=== PATIENT | male | born 1965 | race Caucasian/White ===

== ENCOUNTER 2024-11-18 12:37 | Inpatient (IN) ==
[~2024-11-18 12:37] MED LIST: KETAMINE HCL INJ 50 MG/ML 10 ML VIAL IV ONE; MIDAZOLAM HCL 5 MG/ML 2ML VIAL IV ONE; SUCCINYLCHOLINE CHLORIDE 20 MG/ML 10 ML VIAL IV ONE; fentaNYL citrate PF 100 MCG/2 ML VIAL IV ONE
--- NOTE | 2024-11-18 12:55 | Emergency Department Note ---
Impression & Plan Sepsis, Acute hypoxic respiratory failure, Coronavirus infection, Required emergent intubation, Mucus plugging of bronchi, Aspiration pneumonia ED Provider Note NAME: MEETA LILLY AGE: 59 SEX: M : 1965 ARRIVES VIA: Ambulance INFORMANT: Patient ED PROVIDER(S): Radames Peña MD CHIEF COMPLAINT: SOB, referred. PLAN: Disposition: Admit MEDICAL DECISION MAKING: The patient is a 59-year-old gentleman with a past medical history of schizophrenia, drug-induced dyskinesia, history of ICH/TBI who presents to emergency department via EMS from his halfway facility at [facility] for acute respiratory distress and fevers which began abruptly last night and continued in this morning where he was not able to speak due to his work of breathing and shortness of breath. EMS did arrive and placed the patient on CPAP with subsequent improvement. Review of records that accompany the patient document the patient is agreeable with CPR if needed but he is POLST form indicates limited interventions including no mechanical ventilation. On evaluation the patient is in severe respiratory distress but alert and oriented. He exhibits increased work of breathing with heart rate in the 110s, febrile to 38.1 and tachypneic in the 50s. He exhibits rhonchi of bilateral lung kay with increased work of breathing with retractions and abdominal breathing. EKG demonstrates sinus tachycardia without overt acute ischemia. Chest x-ray demonstrates bilateral airspace opacities with dense left basilar density suspicious for aspiration pneumonia per my preliminary independent interpretation. WBC 9.9K with neutrophilia but no left shift. H/H similar to prior. Platelets within normal limits. Chemistry without metabolic acidosis. Sodium is 150 consistent with patient's clinically dry appearance. Lactic acid 1.2, within normal limits. LFTs unremarkable. High-sensitivity troponin 6.6, within normal limits. BNP is normal. Lipase is normal. Procalcitonin is not elevated. UA without evidence of infection. MRSA swab was positive. Respiratory BioFire was positive for coronavirus OC 43. Patient was treated empirically with IV Zosyn and vancomycin given patient's presentation concerning for sepsis related to aspiration pneumonia. 30 cc/KG of normal saline administered given presentation consistent with sepsis. Patient did show progressive improvement in respiratory status following being placed on BiPAP. CT of the head negative for acute abnormalities. Chronic findings are described. CT of the chest demonstrates left sided mucous plugging with left perihilar and basilar consolidation consistent with pneumonia. CT of the abdomen pelvis negative for acute intra-abdominal process. Case was discussed with Dr. Butcher [facility] hospitalist, who will evaluate the patient for admission. Despite initial improvement on BiPAP the patient, following admission while still in the emergency department, the did have subsequent decline where admitting team did perform follow-up x-ray which demonstrated suspected progression of mucous plugging with left postobstructive atelectasis/collapse. The patient was noted to have increased work of breathing. Hospitalist service did discuss worsening status with the patient and his mother over the phone. They ultimately did agree with decision to proceed with intubation. RSI intubation performed per procedure note with ketamine given concern for poor pulmonary reserve in the setting of his acute respiratory failure. Once cords visualized succinylcholine administered for paralysis. Small amount of emesis did occur. No significant desaturation. Saturation 99% subsequently. OG tube was placed. Follow-up chest x-ray demonstrates ET tube tip 2.2 cm above the connor. The patient was admitted subsequent to the ICU. Further management per admitting team and ICU. Triage Nursing notes reviewed and agree them. Prior/external medical records reviewed Vital Signs: reviewed Differential diagnosis: Reactive airway disease, pneumonia, pneumothorax, COPD, CHF, infections, cardiac ischemia, pulmonary embolism, musculoskeletal, gastrointestinal, as well as other pathologies. ER treatment provided: See below. Diagnostics interpreted by me: ECG: Sinus tachycardia, 110 bpm, no overt ST elevation or depression, QTc 449, QRS 76. Cardiac Monitoring: An order for continuous cardiac monitoring was placed and demonstrated Sinus tachycardia, 110 bpm. Laboratory studies: See below Imaging studies: See below Consultation(s): STEF Crawford hospitalist. Ezra Ruiz, ICU [facility] [employer]INE [employer]EDER. HPI: Per MDM. ROS: See above HPI for pertinent positives & negatives. A total of 10 systems reviewed and were otherwise negative. VITALS:See Below PHYSICAL EXAMINATION: GENERAL: Awake, alert,ill-appearing, in no distress HENT: Normocephalic, atraumatic. Oropharynx with dry mucous membranes and otherwise unremarkable. EYES: Normal conjunctiva. Sclera non-icteric. NECK: Supple. No nuchal rigidity. FROM. No JVD. RESPIRATORY: Rhonchi bilateral lung kay with increased work of breathing with retractions and abdominal breathing. CARDIAC: Tachycardic rate, normal rhythm. Extremities warm and well perfused. Pulses equal. ABDOMEN: Soft, non-distended. No tenderness to palpation. No rebound or guarding. No masses. MUSCULOSKELETAL: Chest examination reveals no tenderness. The back is symmetrical on inspection without obvious abnormality. There is no CVA tenderness to palpation. No joint edema. LOWER EXTREMITIES: Calves are equal size bilaterally and non-tender. No edema. No discoloration. NEURO: Moving all extremities equally with generalized weakness. SKIN: No rash or jaundice noted. ED COURSE: Procedures: Endotracheal Intubation Indication: Acute respiratory failure The patient was on 100% oxygen via CPAP prior to the procedure. Suction, airway equipment, RSI drugs, respiratory equipment, and appropriate personnel were prepared prior to the initiation of the procedure. A time out was taken. Induction was performed with Ketamine. After observing the clinical benefit of the medications, the airway was visualized utilizing a MAC 3, GlideScope. Succinylcholine was administered. A 7.5 size ETT tube was placed atraumatically to 21 cm using standard technique. The cuff inflated without signs of malfunction. There were bilateral breath sounds, positive colormetric change, no gastric sounds, a good capnography waveform, and post procedure pulse oximetry was 99%. Small amount of emesis did occur. No significant desaturation. Chest x-ray demonstrates tip of ET tube 2.2 cm above the connor. Beginnings of left lung reexpansion is appreciated. Critical Care: I have personally spent greater than 65 minutes of critical care time in the direct management of this patient. This includes bedside care, interpretation of diagnostic studies, and testing, discussion with consultants, patient, and family members, and other required patient management activities. This 65 minutes is in excess of all separately billable procedures. Radames Peña MD Past Med/Surg History Problem List (Updated 11/19/24 @ 01:46 by Radames Peña MD) Aspiration pneumonia (Acute) Mucus plugging of bronchi (Acute) Sepsis (Acute) Pneumonia Coronavirus infection (Acute) Acute hypoxic respiratory failure (Acute) Shock circulatory Hypernatremia Viral illness Collapse of left lung Required emergent intubation (Acute) Hypoxic respiratory failure Medical History History of intracranial hemorrhage History of pulmonary embolus (PE) Cognitive impairment History of traumatic brain injury Dyskinesia, drug-induced Acute blood loss anemia HTN (hypertension) Pulmonary embolism Paroxysmal A-fib Intracranial bleed GERD (gastroesophageal reflux disease) Anxiety Depression Schizo affective schizophrenia Bipolar 1 disorder Surgical History History of total replacement of left shoulder joint Social History Smoking Status: Unknown if ever smoked marital status: Single Current Living Situation: Residential other: mother, age 90, lives in [facility]; 2 brothers, 1 sister Feels Safe at Home: Yes Allergies Allergies Allergy/AdvReac Type Severity Reaction Status Date / Time No Known Allergies Allergy Verified 11/18/24 18:57 Home Meds Home Medications Medication Instructions Recorded Confirmed Lactobacillus 1 cap PO BID 11/18/24 11/18/24 Milk of Magnesia 30 ml PO DAILY PRN Constipation 11/18/24 11/18/24 acetaminophen 325 mg tablet 650 mg PO Q12H PRN Pain/fever 11/18/24 11/18/24 acetaminophen 500 mg tablet 500 mg PO Q8H 11/18/24 11/18/24 apixaban 5 mg tablet (Eliquis) 5 mg PO BID 11/18/24 11/18/24 benztropine 1 mg tablet 1 mg PO BID 11/18/24 11/18/24 bisacodyl 10 mg rectal suppository 10 mg WI DAILY PRN Constipation 11/18/24 11/18/24 (Dulcolax (bisacodyl)) ceftazidime 1 gram solution for 1 g IM UD 11/18/24 11/18/24 injection ferrous sulfate 325 mg (65 mg 325 mg PO BID 11/18/24 11/18/24 iron) tablet (FeroSul) furosemide 20 mg tablet 20 mg PO UD 11/18/24 11/18/24 guaifenesin 400 mg tablet (Mucus 400 mg PO .Q12H 11/18/24 11/18/24 Relief) ipratropium 0.5 mg-albuterol 3 mg 3 ml inhalation Q6H 11/18/24 11/18/24 (2.5 mg base)/3 mL nebulization soln lidocaine 4 % topical patch 1 patch topical DAILY 11/18/24 11/18/24 melatonin 3 mg tablet 3 mg PO HS 11/18/24 11/18/24 omeprazole 20 mg capsule,delayed 20 mg PO DAILY 11/18/24 11/18/24 release ondansetron HCl 4 mg tablet 4 mg PO Q6H PRN n/v 11/18/24 11/18/24 oxcarbazepine 150 mg tablet 450 mg PO QPM 11/18/24 11/18/24 paliperidone 6 mg tablet,extended 12 mg PO DAILY 11/18/24 11/18/24 release 24 hr potassium chloride 20 mEq 40 meq PO DAILY 11/18/24 11/18/24 tablet,extended release(part/cryst) risperidone 4 mg tablet 4 mg PO BID 11/18/24 11/18/24 sertraline 100 mg tablet 100 mg PO HS 11/18/24 11/18/24 simethicone 125 mg capsule 125 mg PO DAILY 11/18/24 11/18/24 sodium phosphates 19 gram-7 118 ml WI DAILY PRN Constipation 11/18/24 11/18/24 gram/118 mL enema (Enema) sucralfate 1 gram tablet 1 g PO TID 11/18/24 11/18/24 thiamine mononitrate (vit B1) 100 100 mg PO DAILY 11/18/24 11/18/24 mg tablet Results & Data (ED) Vital Signs Vital Signs - 24 hr 11/18/24 12:44 11/18/24 12:44 11/18/24 12:52 Temperature 38.1 C H Temperature Source Rectal Pulse Rate 115 H 107 H Pulse Rate [Apical] Pulse Rate from SpO2 Sensor Pulse Rhythm [Apical] Pulse Strength [Apical] Respiratory Rate 57 H 30 H Respiratory Effort / Characteristics Labored Spontaneous Labored Retracting Respiratory Depth Retractive Respiratory Pattern Agonal Blood Pressure 133/97 Blood Pressure [Right Arm] Blood Pressure Mean 109 Blood Pressure Mean [Right Arm] Pulse Oximetry 99 99 98 Oxygen Delivery Method BiPAP BiPAP Fraction of Inspired Oxygen 60 Sepsis Recent Fever Within 48 Hours Yes Sepsis New/Unexplained Change in Mental Status N/A Sepsis Action Taken by Nursing Physician Notified 11/18/24 13:00 11/18/24 13:04 11/18/24 13:15 Temperature Temperature Source Pulse Rate 125 H 111 H Pulse Rate [Apical] 108 H Pulse Rate from SpO2 Sensor Pulse Rhythm [Apical] Pulse Strength [Apical] Respiratory Rate 45 H 35 H Respiratory Effort / Characteristics Respiratory Depth Respiratory Pattern Blood Pressure 156/118 H Blood Pressure [Right Arm] Blood Pressure Mean 123 Blood Pressure Mean [Right Arm] Pulse Oximetry 98 97 Oxygen Delivery Method BiPAP BiPAP Fraction of Inspired Oxygen Sepsis Recent Fever Within 48 Hours Sepsis New/Unexplained Change in Mental Status Sepsis Action Taken by Nursing 11/18/24 13:30 11/18/24 13:45 11/18/24 14:00 Temperature Temperature Source Pulse Rate 110 H 112 H Pulse Rate [Apical] 113 H Pulse Rate from SpO2 Sensor Pulse Rhythm [Apical] Pulse Strength [Apical] Respiratory Rate 46 H 38 H 38 H Respiratory Effort / Characteristics Respiratory Depth Respiratory Pattern Blood Pressure 125/107 H 150/103 H Blood Pressure [Right Arm] 155/94 H Blood Pressure Mean 113 111 Blood Pressure Mean [Right Arm] 114 Pulse Oximetry 97 98 97 Oxygen Delivery Method BiPAP BiPAP BiPAP Fraction of Inspired Oxygen Sepsis Recent Fever Within 48 Hours Sepsis New/Unexplained Change in Mental Status Sepsis Action Taken by Nursing 11/18/24 14:15 11/18/24 14:43 11/18/24 14:45 Temperature 36.9 C Temperature Source Axillary Pulse Rate 102 H Pulse Rate [Apical] 97 H Pulse Rate from SpO2 Sensor 102 H Pulse Rhythm [Apical] Pulse Strength [Apical] Respiratory Rate 35 H 48 H Respiratory Effort / Characteristics Respiratory Depth Respiratory Pattern Blood Pressure 136/88 Blood Pressure [Right Arm] 142/103 H Blood Pressure Mean 104 Blood Pressure Mean [Right Arm] 116 Pulse Oximetry 96 97 Oxygen Delivery Method BiPAP BiPAP Fraction of Inspired Oxygen Sepsis Recent Fever Within 48 Hours Sepsis New/Unexplained Change in Mental Status Sepsis Action Taken by Nursing 11/18/24 15:00 11/18/24 15:20 11/18/24 16:00 Temperature Temperature Source Pulse Rate Pulse Rate [Apical] 84 102 H 101 H Pulse Rate from SpO2 Sensor Pulse Rhythm [Apical] Pulse Strength [Apical] Normal Respiratory Rate 42 H 63 H 36 H Respiratory Effort / Characteristics Labored Accessory Muscle Use SOB on Exertion Labored SOB on Exertion Respiratory Depth Shallow Respiratory Pattern Rapid/Shallow Blood Pressure Blood Pressure [Right Arm] 145/95 H 159/95 H 135/83 Blood Pressure Mean Blood Pressure Mean [Right Arm] 111 116 100 Pulse Oximetry 95 98 93 Oxygen Delivery Method BiPAP BiPAP BiPAP Fraction of Inspired Oxygen Sepsis Recent Fever Within 48 Hours Sepsis New/Unexplained Change in Mental Status Sepsis Action Taken by Nursing 11/18/24 16:15 11/18/24 16:30 11/18/24 16:45 Temperature 36.5 C Temperature Source Axillary Pulse Rate Pulse Rate [Apical] 98 H 88 93 H Pulse Rate from SpO2 Sensor Pulse Rhythm [Apical] Pulse Strength [Apical] Normal Respiratory Rate 37 H 45 H 35 H Respiratory Effort / Characteristics Labored SOB on Exertion Labored SOB on Exertion Labored SOB on Exertion Respiratory Depth Respiratory Pattern Rapid/Shallow Rapid/Shallow Blood Pressure Blood Pressure [Right Arm] 151/99 H 171/100 H 138/74 Blood Pressure Mean Blood Pressure Mean [Right Arm] 116 123 95 Pulse Oximetry 93 97 98 Oxygen Delivery Method BiPAP BiPAP BiPAP Fraction of Inspired Oxygen Sepsis Recent Fever Within 48 Hours Sepsis New/Unexplained Change in Mental Status Sepsis Action Taken by Nursing 11/18/24 17:45 11/18/24 18:15 11/18/24 18:22 Temperature 37.3 C 38 C H Temperature Source Bhakta Cath ( Temp Sensing) Bhakta Cath ( Temp Sensing) Pulse Rate 106 H Pulse Rate [Apical] 99 H 106 H Pulse Rate from SpO2 Sensor Pulse Rhythm [Apical] Pulse Strength [Apical] Normal Respiratory Rate 48 H 44 H Respiratory Effort / Characteristics Labored SOB on Exertion Labored SOB on Exertion Respiratory Depth Respiratory Pattern Blood Pressure Blood Pressure [Right Arm] 145/99 H 147/111 H Blood Pressure Mean Blood Pressure Mean [Right Arm] 114 123 Pulse Oximetry 98 92 Oxygen Delivery Method BiPAP BiPAP Fraction of Inspired Oxygen Sepsis Recent Fever Within 48 Hours Sepsis New/Unexplained Change in Mental Status Sepsis Action Taken by Nursing 11/18/24 18:30 11/18/24 19:00 Temperature Temperature Source Pulse Rate Pulse Rate [Apical] 110 H 108 H Pulse Rate from SpO2 Sensor Pulse Rhythm [Apical] Regular Pulse Strength [Apical] Respiratory Rate 51 H 32 H Respiratory Effort / Characteristics Labored SOB on Exertion Respiratory Depth Respiratory Pattern Rapid/Shallow Blood Pressure Blood Pressure [Right Arm] 147/95 H 130/91 Blood Pressure Mean Blood Pressure Mean [Right Arm] 112 104 Pulse Oximetry 90 98 Oxygen Delivery Method BiPAP Fraction of Inspired Oxygen Sepsis Recent Fever Within 48 Hours Sepsis New/Unexplained Change in Mental Status Sepsis Action Taken by Nursing Laboratory Data Attestation: I reviewed the patient's lab results. 11/18/24 12:50 11/18/24 12:50 Lab Results 11/18/24 11/18/24 11/18/24 Range/Units 12:50 12:53 14:38 WBC 9.91 (4.8-10.8) K/ul RBC 4.17 L (4.70-6.10) M/uL Hgb 12.5 L (14.0-18.0) g/dl POC Hgb 12.9 L (14.0-18.0) g/dl Hct 38.6 L (42.0-52.0) % POC Hct 38 L (42-52) % MCV 92.6 (80.0-100.0) fL MCH 30.0 (25.0-34.0) pg MCHC 32.4 (32.0-36.0) g/dL RDW Std Deviation 44.8 (36.4-46.3) fL RDW Coeff of Kalani 13.2 (11.5-14.5) % Plt Count 196 (130-400) K/uL MPV 9.6 (9.4-12.4) fL Immature Gran % (Auto) 0.5 % Neut % (Auto) 82.0 % Lymph % (Auto) 9.4 % Maries % (Auto) 7.8 % Eos % (Auto) 0.1 % Baso % (Auto) 0.2 % Neut # (Auto) 8.13 H (1.40-6.50) K/uL Lymph # (Auto) 0.93 L (1.20-3.40) K/uL Maries # (Auto) 0.77 H (0.11-0.59) K/uL Eos # (Auto) 0.01 (0.00-0.50) K/uL Baso # (Auto) 0.02 (0.00-0.20) K/uL Immature Gran # (Auto) 0.05 (0.01-0.20) K/uL PT 11.3 (9.0-12.0) Seconds INR 1.0 (0.9-1.1) VBG pH 7.42 H (7.36-7.41) VBG pCO2 50 (38-50) mmHg VBG pO2 47 mmHg VBG HCO3 32 mmol/L VBG O2 Saturation 81.9 % VBG Base Excess 6.6 mEq/L POC Sodium 150 H (135-144) mmol/L Sodium 150 H (136-145) mmol/L POC Potassium 4.3 (3.3-5.0) mmol/L Potassium 4.4 (3.5-5.1) mmol/L POC Chloride 111 (101-112) mmol/L Chloride 111 H (98-107) mmol/L Carbon Dioxide 31 (21-32) mmol/L POC Total CO2 28 (24-31) mmol/L Anion Gap 8 (3-11) POC Anion Gap 17.0 (16-25) mmol/L POC BUN 38 H (7-18) mg/dl BUN 38 H (6-23) mg/dl Creatinine 0.98 (0.6-1.4) mg/dl POC Creatinine 1.2 (0.6-1.3) mg/dl Est Cr Clr Drug Dosing Not Reportable eGFR 88.83 BUN/Creatinine Ratio 38.8 H (10-20) Glucose 103 H (70-99(Fasting)) mg/dl POC Glucose (other) 105 H (70-99) mg/dl Lactate 1.2 (0.4-2.0) mmol/L Calcium 9.0 (8.6-10.3) mg/dl POC Ioniz Calcium Thomas 1.13 (1.12-1.32) mmol/l Magnesium 2.0 (1.7-2.4) mg/dl Total Bilirubin 0.4 (0.2-1.0) mg/dl Direct Bilirubin 0.1 (0-0.2) mg/dl AST 18 (13-39) U/L ALT 24 (7-52) U/L Alkaline Phosphatase 59 (34-104) U/L Troponin I High Sens 6.6 (0-20) pg/ml B-Natriuretic Peptide 79 (0-100) pg/ml Total Protein 7.2 (6.0-8.3) gm/dl Albumin 4.1 (3.4-5.0) gm/dl Lipase 22 (11-82) U/L Procalcitonin 0.33 (0-0.5) ng/ml Urine Color Urine Appearance (Clear) Urine pH (4.5-7.5) Ur Specific [place] (1.000-1.030) Urine Protein (Negative) Urine Glucose (UA) (Negative) Urine Ketones (Negative) Urine Blood (Negative) Urine Nitrite (Negative) Urine Bilirubin (Negative) Urine Urobilinogen (Negative) Ur Leukocyte Esterase (Negative) Urine WBC (Auto) (0-5) /hpf Urine RBC (Auto) (0-2) /hpf U Hyaline Cast (Auto) (0-2) /lpf U Epithel Cells (Auto) (0-2) /hpf Urine Bacteria (Auto) (None Seen) Nasal Screen MRSA (PCR) Positive A (Negative) Adenovirus (PCR) Not Detected (NotDetected) B. pertussis DNA (PCR) Not Detected (NotDetected) B.parapertussis DNA PCR Not Detected (NotDetected) C. pneumoniae DNA (PCR) Not Detected (NotDetected) Coronavirus OC43 (PCR) DETECTED A (NotDetected) Coronavirus HKU1 (PCR) Not Detected (NotDetected) Coronavirus 229E (PCR) Not Detected (NotDetected) SARS-CoV-2 (PCR) Not Detected (NotDetected) Coronavirus NL63 (PCR) Not Detected (NotDetected) Human Metapneumovir PCR Not Detected (NotDetected) Influenza Type A (PCR) Not Detected (NotDetected) Influenza Type B (PCR) Not Detected (NotDetected) M. pneumoniae (PCR) Not Detected (NotDetected) Parainfluenza 1 (PCR) Not Detected (NotDetected) Parainfluenza 2 (PCR) Not Detected (NotDetected) Parainfluenza 3 (PCR) Not Detected (NotDetected) Parainfluenza 4 (PCR) Not Detected (NotDetected) RSV (PCR) Not Detected (NotDetected) Entero/Rhino (PCR) Not Detected (NotDetected) 11/18/24 11/18/24 Range/Units 14:56 18:16 WBC (4.8-10.8) K/ul RBC (4.70-6.10) M/uL Hgb (14.0-18.0) g/dl POC Hgb (14.0-18.0) g/dl Hct (42.0-52.0) % POC Hct (42-52) % MCV (80.0-100.0) fL MCH (25.0-34.0) pg MCHC (32.0-36.0) g/dL RDW Std Deviation (36.4-46.3) fL RDW Coeff of Kalani (11.5-14.5) % Plt Count (130-400) K/uL MPV (9.4-12.4) fL Immature Gran % (Auto) % Neut % (Auto) % Lymph % (Auto) % Maries % (Auto) % Eos % (Auto) % Baso % (Auto) % Neut # (Auto) (1.40-6.50) K/uL Lymph # (Auto) (1.20-3.40) K/uL Maries # (Auto) (0.11-0.59) K/uL Eos # (Auto) (0.00-0.50) K/uL Baso # (Auto) (0.00-0.20) K/uL Immature Gran # (Auto) (0.01-0.20) K/uL PT (9.0-12.0) Seconds INR (0.9-1.1) VBG pH 7.37 (7.36-7.41) VBG pCO2 46 (38-50) mmHg VBG pO2 47 mmHg VBG HCO3 27 mmol/L VBG O2 Saturation 78.9 % VBG Base Excess 0.8 mEq/L POC Sodium (135-144) mmol/L Sodium (136-145) mmol/L POC Potassium (3.3-5.0) mmol/L Potassium (3.5-5.1) mmol/L POC Chloride (101-112) mmol/L Chloride (98-107) mmol/L Carbon Dioxide (21-32) mmol/L POC Total CO2 (24-31) mmol/L Anion Gap (3-11) POC Anion Gap (16-25) mmol/L POC BUN (7-18) mg/dl BUN (6-23) mg/dl Creatinine (0.6-1.4) mg/dl POC Creatinine (0.6-1.3) mg/dl Est Cr Clr Drug Dosing eGFR BUN/Creatinine Ratio (10-20) Glucose (70-99(Fasting)) mg/dl POC Glucose (other) (70-99) mg/dl Lactate (0.4-2.0) mmol/L Calcium (8.6-10.3) mg/dl POC Ioniz Calcium Thomas (1.12-1.32) mmol/l Magnesium (1.7-2.4) mg/dl Total Bilirubin (0.2-1.0) mg/dl Direct Bilirubin (0-0.2) mg/dl AST (13-39) U/L ALT (7-52) U/L Alkaline Phosphatase (34-104) U/L Troponin I High Sens (0-20) pg/ml B-Natriuretic Peptide (0-100) pg/ml Total Protein (6.0-8.3) gm/dl Albumin (3.4-5.0) gm/dl Lipase (11-82) U/L Procalcitonin (0-0.5) ng/ml Urine Color Yellow Urine Appearance Clear (Clear) Urine pH 5.5 (4.5-7.5) Ur Specific [place] > 1.045 H (1.000-1.030) Urine Protein 1+ H (Negative) Urine Glucose (UA) Negative (Negative) Urine Ketones Trace H (Negative) Urine Blood Trace H (Negative) Urine Nitrite Negative (Negative) Urine Bilirubin Negative (Negative) Urine Urobilinogen Negative (Negative) Ur Leukocyte Esterase Negative (Negative) Urine WBC (Auto) 0-5 (0-5) /hpf Urine RBC (Auto) 3-5 H (0-2) /hpf U Hyaline Cast (Auto) 0-2 (0-2) /lpf U Epithel Cells (Auto) 0-2 (0-2) /hpf Urine Bacteria (Auto) None Seen (None Seen) Nasal Screen MRSA (PCR) (Negative) Adenovirus (PCR) (NotDetected) B. pertussis DNA (PCR) (NotDetected) B.parapertussis DNA PCR (NotDetected) C. pneumoniae DNA (PCR) (NotDetected) Coronavirus OC43 (PCR) (NotDetected) Coronavirus HKU1 (PCR) (NotDetected) Coronavirus 229E (PCR) (NotDetected) SARS-CoV-2 (PCR) (NotDetected) Coronavirus NL63 (PCR) (NotDetected) Human Metapneumovir PCR (NotDetected) Influenza Type A (PCR) (NotDetected) Influenza Type B (PCR) (NotDetected) M. pneumoniae (PCR) (NotDetected) Parainfluenza 1 (PCR) (NotDetected) Parainfluenza 2 (PCR) (NotDetected) Parainfluenza 3 (PCR) (NotDetected) Parainfluenza 4 (PCR) (NotDetected) RSV (PCR) (NotDetected) Entero/Rhino (PCR) (NotDetected) Administered Medications Benztropine Mesylate (Benztropine Mesylate 1 Mg Tab) 1 mg PO BID [facility] Stop: 12/18/24 20:59 Last Admin: 11/18/24 21:13 Dose: 1 mg Documented By: TMG Heparin Sodium (Porcine) (Heparin Sod 5,000 Unit/0.5 Ml Vial) 5,000 units SQ Q8 [facility] Stop: 12/18/24 21: Last Admin: 11/18/24 23:26 Dose: 5,000 units Documented By: TMG Propofol (Diprivan) 1,000 mg in 100 mls @ 11.592 mls/hr IV .[id number] [facility]SAU; Protocol Stop: 11/21/24 19:29 Last Titration: 11/18/24 23:32 Dose: 30 mcg/kg/min, 11.6 mls/hr Documented By: Titration: 11/18/24 23:00 Dose: 25 mcg/kg/min, 9.7 mls/hr Documented By: Admin: 11/18/24 21:04 Dose: 20 mcg/kg/min, 7.7 mls/hr Documented By: TMG Co-signed By: [facility] Fentanyl Citrate (Fentanyl Citrate) 2,500 mcg in 250 mls @ 5 mls/hr IV .Q50H [facility]; Protocol Stop: 12/02/24 19:29 Last Titration: 11/18/24 23:33 Dose: 50 mcg/hr, 5 mls/hr Documented By: TMG Co-signed By: [facility] Admin: 11/18/24 20:30 Dose: 25 mcg/hr, 2.5 mls/hr Documented By: TMG Co-signed By: [facility] Norepinephrine Bitartrate (Levophed/D5w) 4 mg in 250 mls @ 21.735 mls/hr IV .[id number] [facility]; Protocol Stop: 12/18/24 19:44 Last Titration: 11/18/24 23:33 Dose: 0.09 mcg/kg/min, 21.7 mls/hr Documented By: TMG Co-signed By: [facility] Titration: 11/18/24 23:00 Dose: 0.07 mcg/kg/min, 16.9 mls/hr Documented By: TMG Co-signed By: [facility] Admin: 11/18/24 19:48 Dose: 0.05 mcg/kg/min, 12.1 mls/hr Documented By: ML[facility] Co-signed By: [facility] Famotidine (Pepcid 20mg Iv Push) 20 mg in 5 mls @ 2.5 mls/min IV Q12H [facility] Stop: 12/18/24 20:59 Last Admin: 11/18/24 21:04 Dose: 2.5 mls/min Documented By: [facility] Piperacillin Sod/Tazobactam Sod (Zosyn) 4.5 gm in 100 mls @ 25 mls/hr IV Q8H ESAU; Protocol Stop: 11/25/24 18:59 Last Admin: 11/18/24 21:05 Dose: 25 mls/hr Documented By: BENTON Dextrose (D5w) 1,000 mls @ 80 mls/hr IV .[id number] ESAU Stop: 11/19/24 20:44 Last Admin: 11/18/24 21:02 Dose: 80 mls/hr Documented By: BENTON Miscellaneous (Icu Protocol For Hyperglycemia) 1 each N/A ACHS ESAU Stop: 11/20/24 20:59 Last Admin: 11/18/24 21:11 Dose: Not Given Documented By: BENTON Oxcarbazepine (Oxcarbazepine 150 Mg Tablet) 450 mg PO QPM ESAU Stop: 12/18/24 20:59 Last Admin: 11/18/24 21:04 Dose: 450 mg Documented By: BENTON Sertraline HCl (Sertraline Hcl 100 Mg Tablet) 100 mg PO HS ESAU Stop: 12/18/24 20:59 Last Admin: 11/18/24 21:13 Dose: 100 mg Documented By: BENTON Discontinued Medications Albuterol (Albut/Ipratrop 3mg/0.5mg Neb 3 Ml Vial) 3 ml NEB NOW STA; Protocol Stop: 11/18/24 12:47 Last Admin: 11/18/24 13:09 Dose: 3 ml Documented By: RUI Albuterol (Albut/Ipratrop 3mg/0.5mg Neb 3 Ml Vial) 3 ml NEB NOW STA; Protocol Stop: 11/18/24 17:42 Last Admin: 11/18/24 17:55 Dose: 3 ml Documented By: RUI Albuterol (Albuterol 0.083% Nebu Soln 3 Ml Vial) Confirm Administered Dose 2.5 mg .ROUTE .STK-MED ONE Stop: 11/18/24 20:04 Last Admin: 11/18/24 20:09 Dose: 2.5 mg Documented By: PARUL Benztropine Mesylate (Benztropine Mesylate 1 Mg/Ml 2 Ml Amp) 2 mg IV NOW STA Stop: 11/18/24 12:54 Last Admin: 11/18/24 13:22 Dose: 2 mg Documented By: ODALYS Fentanyl Citrate (Fentanyl Citrate Pf 100 Mcg/2 Ml Vial) 50 mcg IV NOW STA Stop: 11/18/24 19:32 Last Admin: 11/18/24 19:35 Dose: 50 mcg Documented By: JOHNATHAN Acetaminophen (Ofirmev) 1,000 mg in 100 mls @ 400 mls/hr IV NOW STA Stop: 11/18/24 13:00 Last Infusion: 11/18/24 13:20 Dose: Infused Documented By: Admin: 11/18/24 12:59 Dose: 400 mls/hr Documented By: ODALYS Piperacillin Sod/Tazobactam Sod (Zosyn) 4.5 gm in 100 mls @ 200 mls/hr IV NOW ONE; Protocol Stop: 11/18/24 13:15 Last Infusion: 11/18/24 13:57 Dose: Infused Documented By: Admin: 11/18/24 13:17 Dose: 200 mls/hr Documented By: ODALYS Sodium Chloride (Nss) 1,000 mls @ 999 mls/hr IV .Q1H1M ESAU Stop: 11/18/24 15:00 Last Infusion: 11/18/24 15:45 Dose: Infused Documented By: Admin: 11/18/24 14:41 Dose: 999 mls/hr Documented By: Infusion: 11/18/24 14:39 Dose: Infused Documented By: Admin: 11/18/24 13:22 Dose: 999 mls/hr Documented By: ODALYS Vancomycin HCl 1,500 mg/ (Sodium Chloride) 530 mls @ 200 mls/hr IV NOW ONE Stop: 11/18/24 18:19 Last Infusion: 11/18/24 23:07 Dose: Infused Documented By: Admin: 11/18/24 16:21 Dose: 200 mls/hr Documented By: MARY Lactated Ringer's (Lr) 500 mls @ 999 mls/hr IV .Q31M ONE Stop: 11/18/24 20:43 Last Infusion: 11/18/24 23:06 Dose: Infused Documented By: Admin: 11/18/24 20:30 Dose: 999 mls/hr Documented By: BENTON Lactated Ringer's (Lr) 500 mls @ 999 mls/hr IV .Q31M ONE Stop: 11/18/24 21:33 Last Infusion: 11/18/24 23:06 Dose: Infused Documented By: Admin: 11/18/24 21:10 Dose: 999 mls/hr Documented By: BENTON Ioversol (Optiray 320 100ml) 90 ml IV ONCE ONE Stop: 11/18/24 14:35 Last Admin: 11/18/24 14:34 Dose: 90 ml Documented By: ÁNGELA Ketamine HCl (Ketamine Hcl 10mg/Ml Syr) Confirm Administered Dose 100 mg .ROUTE .STK-MED ONE Stop: 11/18/24 18:53 Last Admin: 11/18/24 22:53 Dose: Not Given Documented By: BENTON Ketorolac Tromethamine (Ketorolac Tromethamine 15 Mg/Ml Vial) 15 mg IV NOW ONE Stop: 11/18/24 18:06 Last Admin: 11/18/24 18:11 Dose: 15 mg Documented By: MARY Lidocaine HCl (Lidocaine 2% Jelly 5 Ml Tube) Confirm Administered Dose 5 ml EXT .STK-MED ONE Stop: 11/18/24 19:08 Last Admin: 11/18/24 20:11 Dose: Not Given Documented By: JOHNATHAN Lidocaine HCl (Lidocaine 2% 20 Mg/Ml 5 Ml Syr) Confirm Administered Dose 100 mg IV .STK-MED ONE Stop: 11/18/24 19:09 Last Admin: 11/18/24 20:11 Dose: Not Given Documented By: JOHNATHAN Lidocaine HCl (Lidocaine 4% Inh Soln 4 Ml Btl) Confirm Administered Dose 4 ml .ROUTE .STK-MED ONE Stop: 11/18/24 19:12 Last Admin: 11/18/24 19:14 Dose: 4 ml Documented By: ML Lidocaine HCl (Lidocaine 4% Inh Soln 4 Ml Btl) 4 ml INH NOW ONE Stop: 11/18/24 19:43 Last Admin: 11/18/24 22:05 Dose: Not Given Documented By: CAM Midazolam HCl (Midazolam Hcl 1 Mg/Ml 2ml Vial) 2 mg IV NOW STA Stop: 11/18/24 19:23 Last Admin: 11/18/24 20:10 Dose: Not Given Documented By: [facility] Miscellaneous (Rapid Sequence Induction Bag) Confirm Administered Dose 1 each N/A .STK-MED ONE Stop: 11/18/24 19:00 Last Admin: 11/18/24 22:54 Dose: Not Given Documented By: TMG Miscellaneous Information (Patient's Allergy Info Needs Entered) 1 each N/A Q30M STA Stop: 11/18/24 18:10 Last Admin: 11/18/24 19:33 Dose: Not Given Documented By: GGG Morphine Sulfate (Morphine Sulfate 2 Mg/Ml Carp) 2 mg IV NOW STA Stop: 11/18/24 18:03 Last Admin: 11/18/24 18:12 Dose: 2 mg Documented By: GGG Sodium Chloride (Sodium Chlor 7% 4 Ml Neb) 4 ml NEB ONE ONE Stop: 11/18/24 17:45 Last Admin: 11/18/24 17:55 Dose: 4 ml Documented By: EVELYNW Imaging Data Radiologist's Impression: Chest X-Ray 11/18/24 12:44 XR chest 1V portable CLINICAL HISTORY: Sepsis. COMPARISON STUDY: Chest radiograph July 01, 2024. FINDINGS: Left shoulder arthroplasty is incidentally noted. Low lung volumes are unchanged. There is no pneumothorax. Multiple left costophrenic angle is unchanged. Dense left basilar opacity persists. Cardiomediastinal silhouette is stable. IMPRESSION: 1. Dense left basilar opacity, similar to prior exam. Atelectasis or pneumonia are within the differential. However, given persistence, a chest CT is recommended to exclude an underlying lesion. 2. Low lung volumes, unchanged. ACT 112: Negative or not required by law. Electronically signed by: Damian Logan M.D. 11/18/2024 1:15 PM Abdomen/Pelvis CT 11/18/24 14:08 CT SCAN OF THE ABDOMEN AND PELVIS WITH IV CONTRAST CLINICAL HISTORY: Sepsis. COMPARISON STUDY: None. TECHNIQUE: Following the IV administration of 90 cc of Optiray 320, CT scan of the abdomen and pelvis is performed from the lung bases to the proximal femora. Images are reviewed in the axial, sagittal, and coronal planes. IV contrast was administered without complication. A dose lowering technique was utilized adhering to the principles of ALARA. CT DOSE: 3527.12 mGy.cm FINDINGS: Lung bases: Please note that the chest CT will be reported separately. Left lower lobe volume loss with extensive airspace opacity is present. There are trace bilateral pleural effusions. Subpleural right lower lobe opacity is also present. The heart is mildly enlarged. Liver: The liver morphology is normal and there are no hepatic lesions. There is no biliary ductal dilatation status post cholecystectomy. The hepatic veins and portal veins are patent. Spleen: Normal in size. Subcentimeter splenic hypodense lesion is likely benign. Pancreas: There are no pancreatic lesions. No pancreatic ductal dilatation is present. Adrenal glands: Unremarkable. Kidneys: There is a small right renal cyst. There is no hydronephrosis. The kidneys enhance symmetrically. 3 mm left lower pole renal calculus is present. There are no ureteral calculi. Abdominal vasculature: The caliber of the abdominal aorta is normal. Major vasculature is patent. Bowel: The caliber and wall thickness of small and large bowel are normal. There are postoperative findings within the right colon. The appendix is likely surgically absent. Peritoneum: There is no intraperitoneal free air. There is trace fluid within the pelvis. Lymphadenopathy: None. Skeletal structures: No lytic or blastic lesions are seen. IMPRESSION: 1. No bowel obstruction. No bowel wall thickening. 2. Trace fluid within the pelvis. 3. 3 mm left renal calculus. No ureteral calculi or hydronephrosis. 4. Bilateral lower lobe airspace opacities, greater on the left with secretions and bronchial wall thickening within the lower lobes. The findings could represent atelectasis, pneumonia or aspiration pneumonitis. Trace bilateral pleural effusions. ACT 112: Negative or not required by law. Electronically signed by: Damian Logan M.D. 11/18/2024 3:[address] 11/18/24 14:[address] WITH CONTRAST HISTORY: Acute respiratory failure with possible pneumonia acute resp fail, sepsis, pna TECHNIQUE: Multiaxial CT images of the chest were performed following the IV administration of 90 cc of Optiray. A dose lowering technique was utilized adhering to the principles of ALARA. COMPARISON: CT abdomen and pelvis of same day, chest radiograph 11/18/2024 FINDINGS: Unremarkable thyroid. No pathologically enlarged lymph nodes. Moderate cardiomegaly. Mild coronary artery calcifications. No pericardial effusion. Unremarkable thoracic aorta. Dilation of the main pulmonary artery likely represents pulmonary arterial hypertension. Trace right and small left pleural effusions. No pneumothorax. Respiratory motion artifact limits the study. Mild subsegmental right basilar atelectasis. Left perihilar and left basilar consolidation noted with air bronchograms and prominent mucous plugging. Additionally, there is associated left lung volume loss. Cholecystectomy. No acute upper abdominal abnormality. Midthoracic dextroscoliosis. Left shoulder. Likely chronic sternal and mild thoracolumbar compression deformities. IMPRESSION: 1. Prominent left-sided mucous plugging with left perihilar/left basilar consolidation likely representing an admixture of atelectasis with pneumonia. Follow up with pulmonology recommended. 2. Trace right and small left pleural effusions . 3. Cardiomegaly without pulmonary edema. ACT 112: Negative or not required by law. Electronically signed by: Adriel Vargas M.D. 11/18/2024 3:[address] 11/18/24 14:08 CT SCAN OF THE BRAIN WITHOUT IV CONTRAST CLINICAL HISTORY: Altered mental status. COMPARISON STUDY: None. TECHNIQUE: Unenhanced axial CT scan of the brain was performed from the vertex to the skull base. A dose lowering technique was utilized adhering to the principles of ALARA. FINDINGS: This exam is moderately compromised by motion artifact. No acute intracranial hemorrhage, midline shift or mass effect is present. There is moderate dilatation of the lateral and third ventricles. Basal cisterns are patent. There are no extra-axial collections. 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 There are no findings to suggest acute dural sinus stenosis or acute territorial infarct. The right maxillary sinus is opacified. There are secretions within the sphenoid sinuses. There is mild ethmoid sinus mucosal thickening. No calvarial fractures are identified. IMPRESSION: 1. No acute intracranial findings. Mild motion artifact. 2. Moderate dilatation of the lateral and third ventricles, likely related to atrophy. Normal pressure hydrocephalus is considered less likely. 3. 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 4. Opacified right maxillary sinus. Secretions within the sphenoid sinuses. ACT 112: Negative or not required by law. Electronically signed by: Damian Logan M.D. 11/18/2024 2:54 PM Chest X-Ray 11/18/24 12:44 XR chest 1V portable CLINICAL HISTORY: Sepsis. COMPARISON STUDY: Chest radiograph July 01, 2024. FINDINGS: Left shoulder arthroplasty is incidentally noted. Low lung volumes are unchanged. There is no pneumothorax. Multiple left costophrenic angle is unchanged. Dense left basilar opacity persists. Cardiomediastinal silhouette is stable. IMPRESSION: 1. Dense left basilar opacity, similar to prior exam. Atelectasis or pneumonia are within the differential. However, given persistence, a chest CT is recommended to exclude an underlying lesion. 2. Low lung volumes, unchanged. ACT 112: Negative or not required by law. Electronically signed by: Damian Logan M.D. 11/18/2024 1:15 PM Abdomen/Pelvis CT 11/18/24 14:08 CT SCAN OF THE ABDOMEN AND PELVIS WITH IV CONTRAST CLINICAL HISTORY: Sepsis. COMPARISON STUDY: None. TECHNIQUE: Following the IV administration of 90 cc of Optiray 320, CT scan of the abdomen and pelvis is performed from the lung bases to the proximal femora. Images are reviewed in the axial, sagittal, and coronal planes. IV contrast was administered without complication. A dose lowering technique was utilized adhering to the principles of ALARA. CT DOSE: 3527.12 mGy.cm FINDINGS: Lung bases: Please note that the chest CT will be reported separately. Left lower lobe volume loss with extensive airspace opacity is present. There are trace bilateral pleural effusions. Subpleural right lower lobe opacity is also present. The heart is mildly enlarged. Liver: The liver morphology is normal and there are no hepatic lesions. There is no biliary ductal dilatation status post cholecystectomy. The hepatic veins and portal veins are patent. Spleen: Normal in size. Subcentimeter splenic hypodense lesion is likely benign. Pancreas: There are no pancreatic lesions. No pancreatic ductal dilatation is present. Adrenal glands: Unremarkable. Kidneys: There is a small right renal cyst. There is no hydronephrosis. The kidneys enhance symmetrically. 3 mm left lower pole renal calculus is present. There are no ureteral calculi. Abdominal vasculature: The caliber of the abdominal aorta is normal. Major vasculature is patent. Bowel: The caliber and wall thickness of small and large bowel are normal. There are postoperative findings within the right colon. The appendix is likely surgically absent. Peritoneum: There is no intraperitoneal free air. There is trace fluid within the pelvis. Lymphadenopathy: None. Skeletal structures: No lytic or blastic lesions are seen. IMPRESSION: 1. No bowel obstruction. No bowel wall thickening. 2. Trace fluid within the pelvis. 3. 3 mm left renal calculus. No ureteral calculi or hydronephrosis. 4. Bilateral lower lobe airspace opacities, greater on the left with secretions and bronchial wall thickening within the lower lobes. The findings could represent atelectasis, pneumonia or aspiration pneumonitis. Trace bilateral pleural effusions. ACT 112: Negative or not required by law. Electronically signed by: Damian Logan M.D. 11/18/2024 3:[address] 11/18/24 14:[address] WITH CONTRAST HISTORY: Acute respiratory failure with possible pneumonia acute resp fail, sepsis, pna TECHNIQUE: Multiaxial CT images of the chest were performed following the IV administration of 90 cc of Optiray. A dose lowering technique was utilized adhering to the principles of ALARA. COMPARISON: CT abdomen and pelvis of same day, chest radiograph 11/18/2024 FINDINGS: Unremarkable thyroid. No pathologically enlarged lymph nodes. Moderate cardiomegaly. Mild coronary artery calcifications. No pericardial effusion. Unremarkable thoracic aorta. Dilation of the main pulmonary artery likely represents pulmonary arterial hypertension. Trace right and small left pleural effusions. No pneumothorax. Respiratory motion artifact limits the study. Mild subsegmental right basilar atelectasis. Left perihilar and left basilar consolidation noted with air bronchograms and prominent mucous plugging. Additionally, there is associated left lung volume loss. Cholecystectomy. No acute upper abdominal abnormality. Midthoracic dextroscoliosis. Left shoulder. Likely chronic sternal and mild thoracolumbar compression deformities. IMPRESSION: 1. Prominent left-sided mucous plugging with left perihilar/left basilar consolidation likely representing an admixture of atelectasis with pneumonia. Follow up with pulmonology recommended. 2. Trace right and small left pleural effusions . 3. Cardiomegaly without pulmonary edema. ACT 112: Negative or not required by law. Electronically signed by: Adriel Vargas M.D. 11/18/2024 3:[address] 11/18/24 14:08 CT SCAN OF THE BRAIN WITHOUT IV CONTRAST CLINICAL HISTORY: Altered mental status. COMPARISON STUDY: None. TECHNIQUE: Unenhanced axial CT scan of the brain was performed from the vertex to the skull base. A dose lowering technique was utilized adhering to the principles of ALARA. FINDINGS: This exam is moderately compromised by motion artifact. No acute intracranial hemorrhage, midline shift or mass effect is present. There is moderate dilatation of the lateral and third ventricles. Basal cisterns are patent. There are no extra-axial collections. 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 There are no findings to suggest acute dural sinus stenosis or acute territorial infarct. The right maxillary sinus is opacified. There are secretions within the sphenoid sinuses. There is mild ethmoid sinus mucosal thickening. No calvarial fractures are identified. IMPRESSION: 1. No acute intracranial findings. Mild motion artifact. 2. Moderate dilatation of the lateral and third ventricles, likely related to atrophy. Normal pressure hydrocephalus is considered less likely. 3. 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 4. Opacified right maxillary sinus. Secretions within the sphenoid sinuses. ACT 112: Negative or not required by law. Electronically signed by: Damian Logan M.D. 11/18/2024 2:54 PM Discharge Plan Visit Data Chief Complaint: Respiratory Distress ED Provider: Radames Peña Discharge Problem: Sepsis, Acute hypoxic respiratory failure, Coronavirus infection, Required emergent intubation, Mucus plugging of bronchi, Aspiration pneumonia Patient Disposition: Admitted As Inpatient Discharge Instructions Interventions: ED Discharge Assessment Last Done: 11/18/24 19:41 Discharge Problem: Sepsis Qualifiers: Sepsis type: sepsis due to unspecified organism Sepsis acute organ dysfunction status: with acute organ dysfunction Severe sepsis acute organ dysfunction type: acute respiratory failure Acute respiratory failure type: with hypoxia Severe sepsis shock status: unspecified Qualified Code(s): A41.9 - Sepsis, unspecified organism Aspiration pneumonia Qualifiers: Aspiration pneumonia type: unspecified Laterality: bilateral Lung location: l ower lobe of lung Qualified Code(s): J69.0 - Pneumonitis due to inhalation of food and vomit
[2024-11-18] MEDS: ACETAMINOPHEN 1,000 MG/100 ML VIAL IV STA (12:59)
[2024-11-18 13:08] LABS: Basophils # (auto) 0.02 K/uL (0.00-0.20); Basophils % (auto) 0.2 %; Eosinophils # (auto) 0.01 K/uL (0.00-0.50); Eosinophils % (auto) 0.1 %; Hematocrit (blood only) 38.6 % (42.0-52.0); Hemoglobin 12.5 g/dl (14.0-18.0); Immature Granulocytes # (auto) 0.05 K/uL (0.01-0.20); Immature Granulocytes % (auto) 0.5 %; Lymphocytes # (auto) 0.93 K/uL (1.20-3.40); Lymphocytes % (auto) 9.4 %; Mean Corpuscular Hgb Conc 32.4 g/dL (32.0-36.0); Mean Corpuscular Volume 92.6 fL (80.0-100.0); Mean Platelet Volume 9.6 fL (9.4-12.4); Monocytes # (auto) 0.77 K/uL (0.11-0.59); Monocytes % (auto) 7.8 %; Neutrophils # (auto) 8.13 K/uL (1.40-6.50); Platelet Count 196 K/uL (130-400); RDW Coefficient of Variation 13.2 % (11.5-14.5); RDW Standard Deviation 44.8 fL (36.4-46.3); Red Blood Count 4.17 M/uL (4.70-6.10); White Blood Count 9.91 K/ul (4.8-10.8)
[2024-11-18] MEDS: ALBUT/IPRATROP 3MG/0.5MG NEB 3 ML VIAL NEB STA ×2 (13:09→17:55)
[2024-11-18 13:15] LABS: Base Excess VBG 6.6 mEq/L; HCO3 VBG 32 mmol/L; Oxygen Saturation VBG 81.9 %; PCO2 VBG 50 mmHg (38-50); PO2 VBG 47 mmHg; pH VBG 7.42 (7.36-7.41)
[2024-11-18 13:17] LABS: iSTAT Creatinine 1.2 mg/dl (0.6-1.3); iSTAT Hemoglobin 12.9 g/dl (14.0-18.0); iSTAT Ionized Calcium 1.13 mmol/l (1.12-1.32); iSTAT Potassium 4.3 mmol/L (3.3-5.0)
[2024-11-18] MEDS: PIPERACILLIN/TAZOBACTAM 4.5 GM/100 ML BAG IV ONE (13:17)
--- NOTE | 2024-11-18 13:17 | XRay Report ---
XR chest 1V portable CLINICAL HISTORY: Sepsis. COMPARISON STUDY: Chest radiograph July 01, 2024. FINDINGS: Left shoulder arthroplasty is incidentally noted. Low lung volumes are unchanged. There is no pneumothorax. Multiple left costophrenic angle is unchanged. Dense left basilar opacity persists. Cardiomediastinal silhouette is stable. IMPRESSION: 1. Dense left basilar opacity, similar to prior exam. Atelectasis or pneumonia are within the differe ntial. However, given persistence, a chest CT is recommended to exclude an underlying lesion. 2. Low lung volumes, unchanged. ACT 112: Negative or not required by law. Electronically signed by: Damian Logan M.D. 11/18/2024 1:15 PM
[2024-11-18] MEDS: BENZTROPINE MESYLATE 1 MG/ML 2 ML AMP IV STA (13:22)
[2024-11-18] MEDS: SODIUM CHLORIDE 0.9% 1,000 ML IV SCH (13:22)
[2024-11-18 13:32] LABS: Alanine Aminotransferase 24 U/L (7-52); Albumin Level 4.1 gm/dl (3.4-5.0); Alkaline Phosphatase 59 U/L (34-104); Anion Gap 8 (3-11); Aspartate Aminotransferase 18 U/L (13-39); BUN Creatinine Ratio 38.8 (10-20); Bilirubin Direct 0.1 mg/dl (0-0.2); Bilirubin,Total 0.4 mg/dl (0.2-1.0); Blood Urea Nitrogen 38 mg/dl (6-23); Carbon Dioxide 31 mmol/L (21-32); Chloride 111 mmol/L (98-107); Glucose 103 mg/dl (70-99(Fasting)); Lipase 22 U/L (11-82); Potassium 4.4 mmol/L (3.5-5.1); Sodium 150 mmol/L (136-145); Total Protein 7.2 gm/dl (6.0-8.3)
[2024-11-18 13:36] LABS: Troponin I High Sensitivity 6.6 pg/ml (0-20)
[2024-11-18 13:41] LABS: Prothrombin Time 11.3 Seconds (9.0-12.0)
[2024-11-18 14:18] LABS: Adenovirus PCR Not Detected (NotDetected); Bordetella parapertussis PCR Not Detected (NotDetected); Bordetella pertussis PCR Not Detected (NotDetected); Chlamydia pneumoniae PCR Not Detected (NotDetected); Coronavirus 229E PCR Not Detected (NotDetected); Coronavirus CoV-2 (COVID19)PCR Not Detected (NotDetected); Coronavirus HKU1 PCR Not Detected (NotDetected); Coronavirus NL63 PCR Not Detected (NotDetected); Coronavirus OC43PCR DETECTED (NotDetected); Human Metapneumovirus PCR Not Detected (NotDetected); Influenza A PCR Not Detected (NotDetected); Influenza B PCR Not Detected (NotDetected); Mycoplasma pneumoniae PCR Not Detected (NotDetected); Parainfluenza Virus 1 PCR Not Detected (NotDetected); Parainfluenza Virus 2 PCR Not Detected (NotDetected); Parainfluenza Virus 3 PCR Not Detected (NotDetected); Parainfluenza Virus 4 PCR Not Detected (NotDetected); Respiratory Syncytial VirusPCR Not Detected (NotDetected); Rhinovirus/Enterovirus PCR Not Detected (NotDetected)
[2024-11-18] MEDS: OPTIRAY 320 100ml IV ONE (14:34)
--- NOTE | 2024-11-18 14:55 | CT Scan Report ---
CT SCAN OF THE BRAIN WITHOUT IV CONTRAST CLINICAL HISTORY: Altered mental status. COMPARISON STUDY: None. TECHNIQUE: Unenhanced axial CT scan of the brain was performed from the vertex to the skull base. A dose lowering technique was utilized adhering to the principles of ALARA. FINDINGS: This exam is moderately compromised by motion artifact. No acute intracranial hemorrhage, m idline shift or mass effect is present. There is moderate dilatation of the lateral and third ventric les. Basal cisterns are patent. There are no extra-axial collections. 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 There are no findings to suggest acute dural sin us stenosis or acute territorial infarct. The right maxillary sinus is opacified. There are secretion s within the sphenoid sinuses. There is mild ethmoid sinus mucosal thickening. No calvarial fractures are identified. IMPRESSION: 1. No acute intracranial findings. Mild motion artifact. 2. Moderate dilatation of the lateral and third ventricles, likely related to atrophy. Normal pressur e hydrocephalus is considered less likely. 3. 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 4. Opacified right maxillary sinus. Secretions within the sphenoid sinuses. ACT 112: Negative or not required by law. Electronically signed by: Damian Logan M.D. 11/18/2024 2:54 PM
--- NOTE | 2024-11-18 15:03 | CT Scan Report ---
CHEST CT WITH CONTRAST HISTORY: Acute respiratory failure with possible pneumonia acute resp fail, sepsis, pna TECHNIQUE: Multiaxial CT images of the chest were performed following the IV administration of 90 cc of Optiray. A dose lowering technique was utilized adhering to the principles of ALARA. COMPARISON: CT abdomen and pelvis of same day, chest radiograph 11/18/2024 FINDINGS: Unremarkable thyroid. No pathologically enlarged lymph nodes. Moderate cardiomegaly. Mild c oronary artery calcifications. No pericardial effusion. Unremarkable thoracic aorta. Dilation of the main pulmonary artery likely represents pulmonary arterial hypertension. Trace right and small left pleural effusions. No pneumothorax. Respiratory motion artifact limits the study. Mild subsegmental right basilar atelectasis. Left perihilar and left basilar consolidation no wei with air bronchograms and prominent mucous plugging. Additionally, there is associated left lung volume loss. Cholecystectomy. No acute upper abdominal abnormality. Midthoracic dextroscoliosis. Left shoulder. Li alba chronic sternal and mild thoracolumbar compression deformities. IMPRESSION: 1. Prominent left-sided mucous plugging with left perihilar/left basilar consolidation likely represe nting an admixture of atelectasis with pneumonia. Follow up with pulmonology recommended. 2. Trace right and small left pleural effusions . 3. Cardiomegaly without pulmonary edema. ACT 112: Negative or not required by law. Electronically signed by: Adriel Vargas M.D. 11/18/2024 3:00 PM
--- NOTE | 2024-11-18 15:04 | CT Scan Report ---
CT SCAN OF THE ABDOMEN AND PELVIS WITH IV CONTRAST CLINICAL HISTORY: Sepsis. COMPARISON STUDY: None. TECHNIQUE: Following the IV administration of 90 cc of Optiray 320, CT scan of the abdomen and pelvi s is performed from the lung bases to the proximal femora. Images are reviewed in the axial, sagittal , and coronal planes. IV contrast was administered without complication. A dose lowering technique wa s utilized adhering to the principles of ALARA. CT DOSE: 3527.12 mGy.cm FINDINGS: Lung bases: Please note that the chest CT will be reported separately. Left lower lobe volume loss wi th extensive airspace opacity is present. There are trace bilateral pleural effusions. Subpleural rig ht lower lobe opacity is also present. The heart is mildly enlarged. Liver: The liver morphology is normal and there are no hepatic lesions. There is no biliary ductal d ilatation status post cholecystectomy. The hepatic veins and portal veins are patent. Spleen: Normal in size. Subcentimeter splenic hypodense lesion is likely benign. Pancreas: There are no pancreatic lesions. No pancreatic ductal dilatation is present. Adrenal glands: Unremarkable. Kidneys: There is a small right renal cyst. There is no hydronephrosis. The kidneys enhance symmetric ally. 3 mm left lower pole renal calculus is present. There are no ureteral calculi. Abdominal vasculature: The caliber of the abdominal aorta is normal. Major vasculature is patent. Bowel: The caliber and wall thickness of small and large bowel are normal. There are postoperative fi ndings within the right colon. The appendix is likely surgically absent. Peritoneum: There is no intraperitoneal free air. There is trace fluid within the pelvis. Lymphadenopathy: None. Skeletal structures: No lytic or blastic lesions are seen. IMPRESSION: 1. No bowel obstruction. No bowel wall thickening. 2. Trace fluid within the pelvis. 3. 3 mm left renal calculus. No ureteral calculi or hydronephrosis. 4. Bilateral lower lobe airspace opacities, greater on the left with secretions and bronchial wall th ickening within the lower lobes. The findings could represent atelectasis, pneumonia or aspiration pn eumonitis. Trace bilateral pleural effusions. ACT 112: Negative or not required by law. Electronically signed by: Damian Logan M.D. 11/18/2024 3:03 PM
[2024-11-18 15:12] LABS: Appearance Urine Clear (Clear); Bacteria Urine Automated None Seen (None Seen); Bilirubin Urine Negative (Negative); Blood Urine Trace (Negative); Cast Urine Automated 0-2 /lpf (0-2); Color Urine Yellow; Epithelial Cell Urine Auto 0-2 /hpf (0-2); Glucose Urine UA Negative (Negative); Ketones Urine Trace (Negative); Leukocyte Esterase Urine Negative (Negative); Nitrite Urine Negative (Negative); Protein Urine 1+ (Negative); Specific Gravity Urine > 1.045 (1.000-1.030); Urobilinogen Urine Negative (Negative); WBC Urine Automated 0-5 /hpf (0-5); pH Urine 5.5 (4.5-7.5)
[2024-11-18] MEDS ORDERED: VANCOMYCIN CONSULT ACTIVE PRN (15:41)
[2024-11-18] MEDS: VANCOMYCIN HCL 1,500 MG in SODIUM CHLORIDE 0.9% 500 ML IV ONE (16:21)
--- NOTE | 2024-11-18 17:26 | History & Physical Report ---
Date of Service November 18, 2024 Assessment & Plan (1) Acute hypoxic respiratory failure: (2) Sepsis: (3) Collapse of left lung: (4) Coronavirus infection: (5) Pneumonia: (6) Hypernatremia: (7) Cognitive impairment: (8) History of traumatic brain injury: (9) Dyskinesia, drug-induced: (10) HTN (hypertension): (11) Paroxysmal A-fib: (12) Schizo affective schizophrenia: (13) Bipolar 1 disorder: (14) GERD (gastroesophageal reflux disease): (15) History of pulmonary embolus (PE): (16) History of intracranial hemorrhage: Plan 59yo male with history of schizoaffective disorder, at least 2 head injuries with resulting ICH (one of which required surgery per his mother??), recurrent pneumonia (4-5 episodes last 2 years per his mother), PAF, prior PEs, bipolar disorder, major depression, anemia, HTN, GERD, drug induced dyskinesia, and cognitive impairment (which started after one of his traumatic head injuries) presents from [facility] with worsening respiratory distress that began sometime last PM. At time of admission required BiPAP right away for his severe respiratory distress. Tested + for non-COVID coronavirus infection on [employer] panel. Tested + for MRSA on [employer] swab. Despite supportive care, bronchodilators, saline neb, IV antibiotics, etc he continued to worsen while in the ER. Initially had significant LLL pneumonia/collapse on imaging, and later in his ER course he developed JOVANY collapse as well. Decision made to intubate after confirming with his mother that advanced directives indicate he would want full code status. #acute hypoxic respiratory failure - -2nd to LLL pneumonia, mucous plugging, and collapse of LLL; ultimately had collapse of JOVANY in the ER as well -s/p intubation/mech ventilation & admission to the ICU -f/u CXR post-intubation shows improved airation of the left lung; emergency bronchoscopy can likely be deferred tonight -cont zosyn/vancomycin (latter due to MRSA + status) -bronchodilators, pulm toilet, etc. -appreciate exhaust emissions inspector assistance -appreciate ER attending assistance #pneumonia - -initially CT chest showed LLL pneumonia -likely with JOVANY involvement and some on the right as well -cont zosyn/vancomycin #non-COVID coronavirus infection - -supportive care -droplet precautions -defer on systemic steroids #left lung collapse likely due to mucous plugging - -improved s/p intubation in the ER -bronchoscopy had been considered, but can likely defer tonight since the left lung is now better airated -he will ultimately need speech evaluation later in this stay to assess his swallow function -with mucous plugging heavy concern for aspiration -prior to intubation he had a very weak cough -scoliosis and generalized debilitation also contributing to poor lung function and recurrent pneumonia #hypernatremia - -would provide hypotonic fluid with serial BMPs #probable sepsis 2nd to pneumonia - -2nd to pneumonia & coronavirus infection -follow blood cx's -antibiotics as above #schizoaffective disorder - -cont sertraline to prevent SSRI withdrawal -hold risperidone, paliperidone tonight but resume as soon as possible -cont oxcarbazepine - I am assuming this is used for mood stabilization rather than seizure disorder as his limited amount of SNF records does not indicate h/o seizures -cont benztropine BID #drug induced tardive dyskinesia - -cont benztropine BID #h/o PAF on Eliquis - -as patient may need bronchoscopy hold Eliquis for now -he is not on AV yonas agents chronically -telemetry #h/o previous PEs - -dates of such unknown -as he may need bronchoscopy hold Eliquis for now, but if not needed then resume mahogany #GERD - -IV Pepcid q12h #HTN - -his record indicates such, but he is not on anti-hypertensives at the [facility] #cognitive impairment - -per his mother his memory loss started particularly after one of his brain injuries from a fall -I was able to contact one of the medical directors from the [facility] and they reported that earlier in October he was oriented to person & year but not the month or place -per his mother he is ambulatory? would need to verify that with the SNF (I attempted to call the SNF multiple times this evening to no avail) #DVT proph - -hold Eliquis in case urgent bronch is needed but resume mahogany otherwise -if Eliquis is on hold longer term then would bridge with lovenox Appreciate ICU assistance Pt's mother Edwige Tate ([phone]) - who is 90yo - was updated following his intubation She plans to come tomorrow to [place] from her home in [place] if one of her other children can bring her History of Present Illness Chief Complaint: respiratory distress Primary Care Provider: [facility] 59yo male with history of schizoaffective disorder, at least 2 head injuries with resulting ICH (one of which required surgery per his mother?), recurrent pneumonia, PAF, prior PEs, bipolar disorder, major depression, anemia, HTN, GERD, drug induced dyskinesia, and cognitive impairment (which started after one of his traumatic head injuries) presents from [facility] with worsening respiratory distress that began sometime last evening. Very little information is available from the SNF but by report his dyspnea & increased work of breathing were so severe today that he was not able to talk. EMS was summoned to [facility] and he was immediately placed on CPAP. Upon arrival to [facility] the patient was severely tachypneic despite the CPAP and switched to BIPAP. Hour-long duoneb was provided. Chest imaging showed LLL pneumonia/collapse along with copious mucous plugging. He was given zosyn & IV vancomycin. By report his work of breathing improved modestly. During my ER assessment the patient had severe increased work of breathing with tachypnea (RR 30s/40s), retractions, and accessory muscle use. He was unable to provide any meaningful history. Attempts for him to write on paper were unsuccessful. He was able to tell me that he was in pain but could not localize it. To that point it was presumed the patient was a DNI as his POLST form from the [facility] stated the following - in the event of cardiac arrest he would want full resuscitation; however, if not in cardiac arrest, the POLST indicated he would only want limited interventions (which would exclude intubation/mech ventilation). We ultimately were able to locate a husbandry person for Mr Tate. That person was Edwige Tate, his mother. Phone # - [phone]. I called Ms Tate, discussed what was going on medically, and explained to her that he was in severe respiratory distress due to LLL pneumonia, mucous plugging, etc. Given his distress we voiced concerns that without intubation/mech ventilation he may not survive. We discussed code status - she reported she had advanced directives from her son and that these indicated that he would want intubation/mech ventilation (along with CPR) "if there was a chance at survival." I went back to Mr Tate's room. On paper I wrote out "do you want to be placed on the ventilator?" and placed a large Yes and large No at the bottom. I verbally explained what a ventilator is and why we would be doing such. He pointed to the "yes" at the bottom. I asked one more time if he would want intubation and he shook his head yes this time. I informed Dr Peña, ED attending, of Mrs Tate's wishes as well as the patient's wishes. Preparations were made for intubation and Dr Peña successfully performed such. Dr Gray and Johnathon Benites were both informed of the above. Mr Benites was in the pt's room during the intubation. During chart review I noted that the patient had been receiving IM ceftaz at the [facility], presumably due to the pneumonia. Allergies Allergy/AdvReac Type Severity Reaction Status Date / Time No Known Allergies Allergy Verified 11/18/24 18:57 Home Medications Medication Instructions Recorded Confirmed Type Lactobacillus 1 cap PO BID 11/18/24 11/18/24 History Milk of Magnesia 30 ml PO DAILY PRN Constipation 11/18/24 11/18/24 History acetaminophen 325 mg tablet 650 mg PO Q12H PRN Pain/fever 11/18/24 11/18/24 History acetaminophen 500 mg tablet 500 mg PO Q8H 11/18/24 11/18/24 History apixaban 5 mg tablet (Eliquis) 5 mg PO BID 11/18/24 11/18/24 History benztropine 1 mg tablet 1 mg PO BID 11/18/24 11/18/24 History bisacodyl 10 mg rectal suppository 10 mg OH DAILY PRN Constipation 11/18/24 11/18/24 History (Dulcolax (bisacodyl)) ceftazidime 1 gram solution for 1 g IM UD 11/18/24 11/18/24 History injection ferrous sulfate 325 mg (65 mg 325 mg PO BID 11/18/24 11/18/24 History iron) tablet (FeroSul) furosemide 20 mg tablet 20 mg PO UD 11/18/24 11/18/24 History guaifenesin 400 mg tablet (Mucus 400 mg PO .Q12H 11/18/24 11/18/24 History Relief) ipratropium 0.5 mg-albuterol 3 mg 3 ml inhalation Q6H 11/18/24 11/18/24 History (2.5 mg base)/3 mL nebulization soln lidocaine 4 % topical patch 1 patch topical DAILY 11/18/24 11/18/24 History melatonin 3 mg tablet 3 mg PO HS 11/18/24 11/18/24 History omeprazole 20 mg capsule,delayed 20 mg PO DAILY 11/18/24 11/18/24 History release ondansetron HCl 4 mg tablet 4 mg PO Q6H PRN n/v 11/18/24 11/18/24 History oxcarbazepine 150 mg tablet 450 mg PO QPM 11/18/24 11/18/24 History paliperidone 6 mg tablet,extended 12 mg PO DAILY 11/18/24 11/18/24 History release 24 hr potassium chloride 20 mEq 40 meq PO DAILY 11/18/24 11/18/24 History tablet,extended release(part/cryst) risperidone 4 mg tablet 4 mg PO BID 11/18/24 11/18/24 History sertraline 100 mg tablet 100 mg PO HS 11/18/24 11/18/24 History simethicone 125 mg capsule 125 mg PO DAILY 11/18/24 11/18/24 History sodium phosphates 19 gram-7 118 ml OH DAILY PRN Constipation 11/18/24 11/18/24 History gram/118 mL enema (Enema) sucralfate 1 gram tablet 1 g PO TID 11/18/24 11/18/24 History thiamine mononitrate (vit B1) 100 100 mg PO DAILY 11/18/24 11/18/24 History mg tablet Past Med/Surg History Problem List (Updated 11/18/24 @ 21:48 by Devon Butcher MD) Sepsis Pneumonia Coronavirus infection Acute hypoxic respiratory failure Shock circulatory Hypernatremia Viral illness Collapse of left lung Required emergent intubation Hypoxic respiratory failure Medical History (Updated 11/18/24 @ 21:48 by Devon Butcher MD) History of intracranial hemorrhage History of pulmonary embolus (PE) Cognitive impairment History of traumatic brain injury Dyskinesia, drug-induced Acute blood loss anemia HTN (hypertension) Pulmonary embolism Paroxysmal A-fib Intracranial bleed GERD (gastroesophageal reflux disease) Anxiety Depression Schizo affective schizophrenia Bipolar 1 disorder Surgical History (Updated 11/18/24 @ 21:32 by Devon Butcher MD) History of total replacement of left shoulder joint Social History (Updated 11/18/24 @ 21:33 by Devon Butcher MD) Smoking Status: Never smoker Hx Alcohol Use: No marital status: Single Current Living Situation: Assisted other: mother, age 90, lives in [facility]; 2 brothers, 1 sister Feels Safe at Home: Yes Review of Systems Review of Systems: Other (unable to obtain due to severe resp distress, BIPAP in place) Physical Exam Physical Exam: gen - very thin, malnourished appearing, looks older than stated age; severe respiratory distress with accessory muscle use, retractions & tachypnea; very difficult to verbally communicate with him eyes - PERRL face - tardive dyskinetic movements noted of lower face neck - no lymph nodes, no goiter, no JVD heart - tachy, regular rhythm, s1 s2, no murmur lungs - decreased BS mildly R base, but right lung clear; left lung - severely decreased BS, only the apex has air movement; upper airway noise (girgling breath sounds) present; severe distress as above abd - soft, NT, BS+, no HSM ext - slightly cool to touch, no edema, pulses b/l feet 1-2+ neuro - moves all 4 extremities but preferentially the right arm, DTRs 2+ b/l skin - no rash; scar present on forehead musculo - severe scoliosis; patient leans to his left psych - unable to assess mental status completely but does follow commands Results & Data Results & Data Vital Signs (Past 12 Hours) Vital Signs Temp Pulse Pulse Resp BP BP Pulse Ox 11/18/24 16:45 93 H 35 H 138/74 98 11/18/24 16:30 36.5 C 88 45 H 171/100 H 97 11/18/24 16:15 98 H 37 H 151/99 H 93 11/18/24 16:00 101 H 36 H 135/83 93 11/18/24 15:20 102 H 63 H 159/95 H 98 11/18/24 15:00 84 42 H 145/95 H 95 11/18/24 14:45 97 H 48 H 142/103 H 97 11/18/24 14:43 36.9 C 11/18/24 14:15 102 H 35 H 136/88 96 11/18/24 14:00 112 H 38 H 150/103 H 97 11/18/24 13:45 110 H 38 H 125/107 H 98 11/18/24 13:30 113 H 46 H 155/94 H 97 11/18/24 13:15 108 H 35 H 97 11/18/24 13:04 111 H 11/18/24 13:00 125 H 45 H 156/118 H 98 11/18/24 12:52 107 H 30 H 98 11/18/24 12:44 99 11/18/24 12:44 38.1 C H 115 H 57 H 133/97 99 O2 Del Method FiO2 11/18/24 16:45 BiPAP 11/18/24 16:30 BiPAP 11/18/24 16:15 BiPAP 11/18/24 16:00 BiPAP 11/18/24 15:20 BiPAP 11/18/24 15:00 BiPAP 11/18/24 14:45 BiPAP 11/18/24 14:43 11/18/24 14:15 BiPAP 11/18/24 14:00 BiPAP 11/18/24 13:45 BiPAP 11/18/24 13:30 BiPAP 11/18/24 13:15 BiPAP 11/18/24 13:04 11/18/24 13:00 BiPAP 11/18/24 12:52 60 11/18/24 12:44 BiPAP 11/18/24 12:44 BiPAP Laboratory Results Laboratory Results - last 24 hr 11/18/24 11/18/24 11/18/24 12:50 12:53 14:38 WBC 9.91 RBC 4.17 L Hgb 12.5 L POC Hgb 12.9 L Hct 38.6 L POC Hct 38 L MCV 92.6 MCH 30.0 MCHC 32.4 RDW Std Deviation 44.8 RDW Coeff of Kalani 13.2 Plt Count 196 MPV 9.6 Immature Gran % (Auto) 0.5 Neut % (Auto) 82.0 Lymph % (Auto) 9.4 Thomas % (Auto) 7.8 Eos % (Auto) 0.1 Baso % (Auto) 0.2 Neut # (Auto) 8.13 H Lymph # (Auto) 0.93 L Thomas # (Auto) 0.77 H Eos # (Auto) 0.01 Baso # (Auto) 0.02 Immature Gran # (Auto) 0.05 PT 11.3 INR 1.0 VBG pH 7.42 H VBG pCO2 50 VBG pO2 47 VBG HCO3 32 VBG O2 Saturation 81.9 VBG Base Excess 6.6 POC Sodium 150 H Sodium 150 H POC Potassium 4.3 Potassium 4.4 POC Chloride 111 Chloride 111 H Carbon Dioxide 31 POC Total CO2 28 Anion Gap 8 POC Anion Gap 17.0 POC BUN 38 H BUN 38 H Creatinine 0.98 POC Creatinine 1.2 Est Cr Clr Drug Dosing Not Reportable eGFR 88.83 BUN/Creatinine Ratio 38.8 H Glucose 103 H POC Glucose POC Glucose (other) 105 H Lactate 1.2 Calcium 9.0 POC Ioniz Calcium Thomas 1.13 Magnesium 2.0 Total Bilirubin 0.4 Direct Bilirubin 0.1 AST 18 ALT 24 Alkaline Phosphatase 59 Troponin I High Sens 6.6 B-Natriuretic Peptide 79 Total Protein 7.2 Albumin 4.1 Lipase 22 Procalcitonin 0.33 Random Cortisol Urine Color Urine Appearance Urine pH Ur Specific Shafter Urine Protein Urine Glucose (UA) Urine Ketones Urine Blood Urine Nitrite Urine Bilirubin Urine Urobilinogen Ur Leukocyte Esterase Urine WBC (Auto) Urine RBC (Auto) U Hyaline Cast (Auto) U Epithel Cells (Auto) Urine Bacteria (Auto) Nasal Screen MRSA (PCR) Positive A Adenovirus (PCR) Not Detected B. pertussis DNA (PCR) Not Detected B.parapertussis DNA PCR Not Detected C. pneumoniae DNA (PCR) Not Detected Coronavirus OC43 (PCR) DETECTED A Coronavirus HKU1 (PCR) Not Detected Coronavirus 229E (PCR) Not Detected SARS-CoV-2 (PCR) Not Detected Coronavirus NL63 (PCR) Not Detected Human Metapneumovir PCR Not Detected Influenza Type A (PCR) Not Detected Influenza Type B (PCR) Not Detected M. pneumoniae (PCR) Not Detected Parainfluenza 1 (PCR) Not Detected Parainfluenza 2 (PCR) Not Detected Parainfluenza 3 (PCR) Not Detected Parainfluenza 4 (PCR) Not Detected RSV (PCR) Not Detected Entero/Rhino (PCR) Not Detected 11/18/24 11/18/24 11/18/24 14:56 18:16 21:11 WBC RBC Hgb POC Hgb Hct POC Hct MCV MCH MCHC RDW Std Deviation RDW Coeff of Kalani Plt Count MPV Immature Gran % (Auto) Neut % (Auto) Lymph % (Auto) Thomas % (Auto) Eos % (Auto) Baso % (Auto) Neut # (Auto) Lymph # (Auto) Thomas # (Auto) Eos # (Auto) Baso # (Auto) Immature Gran # (Auto) PT INR VBG pH 7.37 VBG pCO2 46 VBG pO2 47 VBG HCO3 27 VBG O2 Saturation 78.9 VBG Base Excess 0.8 POC Sodium Sodium POC Potassium Potassium POC Chloride Chloride Carbon Dioxide POC Total CO2 Anion Gap POC Anion Gap POC BUN BUN Creatinine POC Creatinine Est Cr Clr Drug Dosing eGFR BUN/Creatinine Ratio Glucose POC Glucose 121 H POC Glucose (other) Lactate Calcium POC Ioniz Calcium Thomas Magnesium Total Bilirubin Direct Bilirubin AST ALT Alkaline Phosphatase Troponin I High Sens B-Natriuretic Peptide Total Protein Albumin Lipase Procalcitonin Random Cortisol Urine Color Yellow Urine Appearance Clear Urine pH 5.5 Ur Specific Shafter > 1.045 H Urine Protein 1+ H Urine Glucose (UA) Negative Urine Ketones Trace H Urine Blood Trace H Urine Nitrite Negative Urine Bilirubin Negative Urine Urobilinogen Negative Ur Leukocyte Esterase Negative Urine WBC (Auto) 0-5 Urine RBC (Auto) 3-5 H U Hyaline Cast (Auto) 0-2 U Epithel Cells (Auto) 0-2 Urine Bacteria (Auto) None Seen Nasal Screen MRSA (PCR) Adenovirus (PCR) B. pertussis DNA (PCR) B.parapertussis DNA PCR C. pneumoniae DNA (PCR) Coronavirus OC43 (PCR) Coronavirus HKU1 (PCR) Coronavirus 229E (PCR) SARS-CoV-2 (PCR) Coronavirus NL63 (PCR) Human Metapneumovir PCR Influenza Type A (PCR) Influenza Type B (PCR) M. pneumoniae (PCR) Parainfluenza 1 (PCR) Parainfluenza 2 (PCR) Parainfluenza 3 (PCR) Parainfluenza 4 (PCR) RSV (PCR) Entero/Rhino (PCR) 11/18/24 11/18/24 21:25 Unknown WBC RBC Hgb POC Hgb Hct POC Hct MCV MCH MCHC RDW Std Deviation RDW Coeff of Kalani Plt Count MPV Immature Gran % (Auto) Neut % (Auto) Lymph % (Auto) Thomas % (Auto) Eos % (Auto) Baso % (Auto) Neut # (Auto) Lymph # (Auto) Thomas # (Auto) Eos # (Auto) Baso # (Auto) Immature Gran # (Auto) PT INR VBG pH Pending VBG pCO2 Pending VBG pO2 Pending VBG HCO3 Pending VBG O2 Saturation Pending VBG Base Excess Pending POC Sodium Sodium POC Potassium Potassium POC Chloride Chloride Carbon Dioxide POC Total CO2 Anion Gap POC Anion Gap POC BUN BUN Creatinine POC Creatinine Est Cr Clr Drug Dosing eGFR BUN/Creatinine Ratio Glucose POC Glucose POC Glucose (other) Lactate Calcium POC Ioniz Calcium Thomas Magnesium Total Bilirubin Direct Bilirubin AST ALT Alkaline Phosphatase Troponin I High Sens B-Natriuretic Peptide Total Protein Albumin Lipase Procalcitonin Random Cortisol Pending Urine Color Yellow Urine Appearance Clear Urine pH 6.0 Ur Specific Shafter > 1.045 H Urine Protein Negative Urine Glucose (UA) Negative Urine Ketones Negative Urine Blood Trace H Urine Nitrite Negative Urine Bilirubin Negative Urine Urobilinogen Negative Ur Leukocyte Esterase Negative Urine WBC (Auto) 0-5 Urine RBC (Auto) 3-5 H U Hyaline Cast (Auto) 0-2 U Epithel Cells (Auto) 0-2 Urine Bacteria (Auto) None Seen Nasal Screen MRSA (PCR) Adenovirus (PCR) B. pertussis DNA (PCR) B.parapertussis DNA PCR C. pneumoniae DNA (PCR) Coronavirus OC43 (PCR) Coronavirus HKU1 (PCR) Coronavirus 229E (PCR) SARS-CoV-2 (PCR) Coronavirus NL63 (PCR) Human Metapneumovir PCR Influenza Type A (PCR) Influenza Type B (PCR) M. pneumoniae (PCR) Parainfluenza 1 (PCR) Parainfluenza 2 (PCR) Parainfluenza 3 (PCR) Parainfluenza 4 (PCR) RSV (PCR) Entero/Rhino (PCR) EKG - my reading - sinus tach, RSR' pattern V1, no ST changes Diagnostic Findings Chest X-Ray 11/18/24 12:44 XR chest 1V portable CLINICAL HISTORY: Sepsis. COMPARISON STUDY: Chest radiograph July 01, 2024. FINDINGS: Left shoulder arthroplasty is incidentally noted. Low lung volumes are unchanged. There is no pneumothorax. Multiple left costophrenic angle is uncha nged. Dense left basilar opacity persists. Cardiomediastinal silhouette is stable. IMPRESSION: 1. Dense left basilar opacity, similar to prior exam. Atelectasis or pneumonia are within the differential. However, given persistence, a chest CT is recommended to exclude an underlying lesion. 2. Low lung volumes, unchanged. ACT 112: Negative or not required by law. Electronically signed by: Damian Logan M.D. 11/18/2024 1:15 PM Abdomen/Pelvis CT 11/18/24 14:08 CT SCAN OF THE ABDOMEN AND PELVIS WITH IV CONTRAST CLINICAL HISTORY: Sepsis. COMPARISON STUDY: None. TECHNIQUE: Following the IV administration of 90 cc of Optiray 320, CT scan of the abdomen and pelvis is performed from the lung bases to the proximal femora. Images are reviewed in the axial, sagittal, and coronal planes. IV contrast was administered without complication. A dose lowering technique was utilized adhering to the principles of ALARA. CT DOSE: 3527.12 mGy.cm FINDINGS: Lung bases: Please note that the chest CT will be reported separately. Left lower lobe volume loss with extensive airspace opacity is present. There are trace bilateral pleural effusions. Subpleural right lower lobe opacity is also present. The heart is mildly enlarged. Liver: The liver morphology is normal and there are no hepatic lesions. There is no biliary ductal dilatation status post cholecystectomy. The hepatic veins and portal veins are patent. Spleen: Normal in size. Subcentimeter splenic hypodense lesion is likely benign. Pancreas: There are no pancreatic lesions. No pancreatic ductal dilatation is present. Adrenal glands: Unremarkable. Kidneys: There is a small right renal cyst. There is no hydronephrosis. The kidneys enhance symmetrically. 3 mm left lower pole renal calculus is present. There are no ureteral calculi. Abdominal vasculature: The caliber of the abdominal aorta is normal. Major vasculature is patent. Bowel: The caliber and wall thickness of small and large bowel are normal. There are postoperative findings within the right colon. The appendix is likely surgically absent. Peritoneum: There is no intraperitoneal free air. There is trace fluid within the pelvis. Lymphadenopathy: None. Skeletal structures: No lytic or blastic lesions are seen. IMPRESSION: 1. No bowel obstruction. No bowel wall thickening. 2. Trace fluid within the pelvis. 3. 3 mm left renal calculus. No ureteral calculi or hydronephrosis. 4. Bilateral lower lobe airspace opacities, greater on the left with secretions and bronchial wall thickening within the lower lobes. The findings could represent atelectasis, pneumonia or aspiration pneumonitis. Trace bilateral pleural effusions. ACT 112: Negative or not required by law. Electronically signed by: Damian oLgan M.D. 11/18/2024 3:[address] 11/18/24 14:[address] WITH CONTRAST HISTORY: Acute respiratory failure with possible pneumonia acute resp fail, sepsis, pna TECHNIQUE: Multiaxial CT images of the chest were performed following the IV administration of 90 cc of Optiray. A dose lowering technique was utilized adhering to the principles of ALARA. COMPARISON: CT abdomen and pelvis of same day, chest radiograph 11/18/2024 FINDINGS: Unremarkable thyroid. No pathologically enlarged lymph nodes. Moderate cardiomegaly. Mild coronary artery calcifications. No pericardial effusion. Unremarkable thoracic aorta. Dilation of the main pulmonary artery likely represents pulmonary arterial hypertension. Trace right and small left pleural effusions. No pneumothorax. Respiratory motion artifact limits the study. Mild subsegmental right basilar atelectasis. Left perihilar and left basilar consolidation noted with air bronchograms and prominent mucous plugging. Additionally, there is associated left lung volume loss. Cholecystectomy. No acute upper abdominal abnormality. Midthoracic dextroscoliosis. Left shoulder. Likely chronic sternal and mild thoracolumbar compression deformities. IMPRESSION: 1. Prominent left-sided mucous plugging with left perihilar/left basilar consolidation likely representing an admixture of atelectasis with pneumonia. Follow up with pulmonology recommended. 2. Trace right and small left pleural effusions . 3. Cardiomegaly without pulmonary edema. ACT 112: Negative or not required by law. Electronically signed by: Adriel Vargas M.D. 11/18/2024 3:[address] 11/18/24 14:08 CT SCAN OF THE BRAIN WITHOUT IV CONTRAST CLINICAL HISTORY: Altered mental status. COMPARISON STUDY: None. TECHNIQUE: Unenhanced axial CT scan of the brain was performed from the vertex to the skull base. A dose lowering technique was utilized adhering to the principles of ALARA. FINDINGS: This exam is moderately compromised by motion artifact. No acute intracranial hemorrhage, midline shift or mass effect is present. There is moderate dilatation of the lateral and third ventricles. Basal cisterns are patent. There are no extra-axial collections. 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 There are no findings to suggest acute dural sinus stenosis or acute territorial infarct. The right maxillary sinus is opacified. There are secretions within the sphenoid sinuses. There is mild ethmoid sinus mucosal thickening. No calvarial fractures are identified. IMPRESSION: 1. No acute intracranial findings. Mild motion artifact. 2. Moderate dilatation of the lateral and third ventricles, likely related to atrophy. Normal pressure hydrocephalus is considered less likely. 3. 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 4. Opacified right maxillary sinus. Secretions within the sphenoid sinuses. ACT 112: Negative or not required by law. Electronically signed by: Damian Logan M.D. 11/18/2024 2:54 PM Chest X-Ray 11/18/24 19:15 Clinical History: Check tube placement Technique: 2 frontal views of the chest were obtained Comparison is made to the prior examination dated 07/01/2024 Findings: There are new left upper lobe and mild right midlung and left lung base infiltrates, likely due to pneumonia. The heart size is within normal limits. No pleural effusion or pneumothorax is seen. There is a new endotracheal tube with its tip 2.2 cm above the connor, in satisfactory position. There is a new nasogastric tube with its tip within the stomach. A left shoulder arthroplasty is again seen. There is thoracic and lumbar scoliosis and degenerative disc disease Impression: 1. Bilateral pneumonia 2. Endotracheal tube in expected position ACT 112: Positive. There are findings on this exam that require communication between the performing entity and the patient following Patient Test Result Information Act ([place] ACT 112) guidelines. Electronically signed by Danny Choi 11-18-2024 7:42 PM Code Status & VTE Plan Code Status full code per pt's motherEdwige Critical Care Time Critical Care Time: Yes Total Critical Care Time: 60 PG Care Time/CCT Total # of Minutes Spent Total Time Spent with Patient: Total time spent is greater than 50% in coordination of care (as documented) at patient's floor/unit and/or counseling patient: Critical Care Time: Yes Total Critical Care Time: 60 Coding Level of Care Code None Diagnoses Acute hypoxic respiratory failure J96.01 Sepsis A41.9 Collapse of left lung J98.11 Coronavirus infection B34.2 Pneumonia J18.9 Hypernatremia E87.0 Cognitive impairment R41.89 History of traumatic brain injury Z87.820 Dyskinesia, 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
[2024-11-18] MEDS: SODIUM CHLOR 7% 4 ML NEB NEB ONE (17:55)
[2024-11-18] MEDS: KETOROLAC TROMETHAMINE 15 MG/ML VIAL IV ONE (18:11)
[2024-11-18] MEDS: MoRPHine SULFATE 2 MG/ML CARP IV STA (18:12)
[2024-11-18 18:26] LABS: Base Excess VBG 0.8 mEq/L; HCO3 VBG 27 mmol/L; Oxygen Saturation VBG 78.9 %; PCO2 VBG 46 mmHg (38-50); PO2 VBG 47 mmHg; pH VBG 7.37 (7.36-7.41)
[2024-11-18 18:38] LABS: Appearance Urine Clear (Clear); Bacteria Urine Automated None Seen (None Seen); Bilirubin Urine Negative (Negative); Blood Urine Trace (Negative); Cast Urine Automated 0-2 /lpf (0-2); Color Urine Yellow; Epithelial Cell Urine Auto 0-2 /hpf (0-2); Glucose Urine UA Negative (Negative); Ketones Urine Negative (Negative); Leukocyte Esterase Urine Negative (Negative); Nitrite Urine Negative (Negative); Protein Urine Negative (Negative); Specific Gravity Urine > 1.045 (1.000-1.030); Urobilinogen Urine Negative (Negative); WBC Urine Automated 0-5 /hpf (0-5)
[2024-11-18] MEDS: LIDOCAINE 4% INH SOLN 4 ML BTL ONE (19:14)
[2024-11-18] MEDS ORDERED: STAT IV Infusion **Titration per Protocol STA ×2 (19:28→19:41)
[2024-11-18] MEDS ORDERED: fentaNYL BOLUS from BAG IV PRN (19:28)
[2024-11-18] MEDS: Patient's ALLERGY Info needs ENTERED STA (19:33)
[2024-11-18] MEDS: fentaNYL citrate PF 100 MCG/2 ML VIAL IV STA (19:35)
--- NOTE | 2024-11-18 19:43 | XRay Report ---
Clinical History: Check tube placement Technique: 2 frontal views of the chest were obtained Comparison is made to the prior examination dated 07/01/2024 Findings: There are new left upper lobe and mild right midlung and left lung base infiltrates, likely due to pneumonia. The heart size is within normal limits. No pleural effusion or pneumothorax is seen. There is a new endotracheal tube with its tip 2.2 cm above the connor, in satisfactory position. There is a new nasogastric tube with its tip within the stomach. A left shoulder arthroplasty is again seen. There is thoracic and lumbar scoliosis and degenerative disc disease Impression: 1. Bilateral pneumonia 2. Endotracheal tube in expected position ACT 112: Positive. There are findings on this exam that require communication between the performing entity and the patient following Patient Test Result Information Act ([place] ACT 112) guidelines. Electronically signed by Danny Choi 11-18-2024 7:42 PM
[2024-11-18] MEDS: NOREPINEPHRINE/D5W 4 MG/250 ML PLCT IV SCH (19:48)
[2024-11-18] MEDS: ALBUTEROL 0.083% NEBU SOLN 3 ML VIAL ONE (20:09)
[2024-11-18] MEDS: MIDAZOLAM HCL 1 MG/ML 2ML VIAL IV STA (20:10)
[2024-11-18] MEDS: LIDOCAINE 2% JELLY 5 ML TUBE EXT ONE (20:11)
[2024-11-18] MEDS: LIDOCAINE 2% 20 MG/ML 5 ML SYR IV ONE (20:11)
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
[2024-11-18] MEDS: fentaNYL citrate 2,500 MCG/250 ML BAG IV SCH (20:30)
[2024-11-18] MEDS: LACTATED RINGER'S 500 ML IV ONE ×2 (20:30→21:10)
[2024-11-18] MEDS: DEXTROSE 5% 1,000 ML IV SCH (21:02)
[2024-11-18] MEDS: FAMOTIDINE 20MG IV PUSH 20 MG/5 ML SYR IV SCH (21:04)
[2024-11-18] MEDS: propofoL 1,000 MG/100 ML VIAL IV SCH (21:04)
[2024-11-18] MEDS: OXcarbazepine 150 MG TABLET PO SCH (21:04)
[2024-11-18] MEDS: PIPERACILLIN/TAZOBACTAM 4.5 GM/100 ML BAG IV SCH (21:05)
[2024-11-18] MEDS: ICU Protocol for HYPERglycemia SCH (21:11)
[2024-11-18] MEDS: BENZTROPINE MESYLATE 1 MG TAB PO SCH (21:13)
[2024-11-18] MEDS: SERTRALINE HCL 100 MG TABLET PO SCH (21:13)
[2024-11-18 21:32] LABS: Base Excess VBG 1.7 mEq/L; HCO3 VBG 28 mmol/L; Oxygen Saturation VBG 63.2 %; PCO2 VBG 51 mmHg (38-50); PO2 VBG 35 mmHg; pH VBG 7.35 (7.36-7.41)
--- NOTE | 2024-11-18 21:38 | Pharmacy Report ---
Pharmacy PK ABX Note - Date of Service November 18, 2024 - Assessment and Plan Assessment 59 year old who presented with hypoxic respiratory failure and collapse of left lung secondary to mucous obstruction, s/p intubation and mechanical ventilation. Ordered empiric vancomycin and pip/tazo IV. BC and sputum culture pending. Positive MRSA nasal swab, respiratory PCR panel detected Coronavirus (OC43). h/o MRSA per provider notes. Plan Vancomycin * Loading dose: 1500 mg IV x 1 * Maintenance dose: 1000 mg IV every 12 hours * Regimen is predicted to achieve target AUC/KYLE of 400-600 mg/L.hr * Trough level ordered for: 11/20 - prior to 0400 dose Pharmacy will continue to follow and will adjust dose/frequency as necessary. Thank you. Pharmacy has transitioned to AUC monitoring for vancomycin. AUC/KYLE is the preferred PK/PD target and is associated with decreased risk of nephrotoxicity compared to traditional trough targets.
[2024-11-18] MEDS: LIDOCAINE 4% INH SOLN 4 ML BTL INH ONE (22:05)
--- NOTE | 2024-11-18 22:25 | XRay Report ---
Exam(s): XR CXR 1 VIEW EXAM: XR Chest, 1 View CLINICAL HISTORY: Reason for exam: eval ETT placement after manipulation. TECHNIQUE: Frontal view of the chest. COMPARISON: Chest radiograph on 11/18/2024 FINDINGS: Hardware: Endotracheal tube terminates approximately 3.5 cm above the connor. An enteric tube courses past the diaphragm and out of the field- of-view. Lungs/pleura: Small left and probable trace right pleural effusions. Patchy opacities in the left lung and opacity in the right upper lobe, concerning for infectious/inflammatory process. Heart/mediastinum: Borderline size of the cardiac silhouette. Soft tissues: Unremarkable. Bones: No acute fracture. Curvature of the spine. Left shoulder arthroplasty. Upper abdomen: Normal. IMPRESSION: 1. Endotracheal tube terminates approximately 3.5 cm above the connor. An enteric tube courses past the diaphragm and out of the [id number]. 2. Small left and probable trace right pleural effusions. Patchy opacities in the left lung and opacity in the right upper lobe, concerning for infectious/inflammatory process. Electronically signed by: Margarita Hood M.D. 11/18/24 22:24 PM
[2024-11-18] MEDS: KETAMINE HCL 10MG/ML SYR ONE (22:53)
[2024-11-18] MEDS: RAPID SEQUENCE INDUCTION BAG ONE (22:54)
[2024-11-18] MEDS: HEPARIN SOD 5,000 UNIT/0.5 ML VIAL SQ SCH (23:26)
[2024-11-19] MEDS: ALBUT/IPRATROP 3MG/0.5MG NEB 3 ML VIAL INH SCH (01:17)
[2024-11-19] MEDS: VANCOMYCIN HCL 1,000 MG/270 ML BAG IV SCH (03:33)
[2024-11-19 05:12] LABS: Basophils # (auto) 0.04 K/uL (0.00-0.20); Basophils % (auto) 0.4 %; Eosinophils # (auto) 0.04 K/uL (0.00-0.50); Eosinophils % (auto) 0.4 %; Hematocrit (blood only) 33.8 % (42.0-52.0); Hemoglobin 10.7 g/dl (14.0-18.0); Immature Granulocytes # (auto) 0.06 K/uL (0.01-0.20); Immature Granulocytes % (auto) 0.6 %; Lymphocytes # (auto) 0.71 K/uL (1.20-3.40); Lymphocytes % (auto) 6.8 %; Mean Corpuscular Hemoglobin 30.1 pg (25.0-34.0); Mean Corpuscular Hgb Conc 31.7 g/dL (32.0-36.0); Mean Corpuscular Volume 94.9 fL (80.0-100.0); Mean Platelet Volume 9.7 fL (9.4-12.4); Monocytes # (auto) 0.53 K/uL (0.11-0.59); Monocytes % (auto) 5.1 %; Neutrophils # (auto) 9.11 K/uL (1.40-6.50); Neutrophils % (auto) 86.7 %; Platelet Count 154 K/uL (130-400); RDW Coefficient of Variation 13.4 % (11.5-14.5); RDW Standard Deviation 47.6 fL (36.4-46.3); Red Blood Count 3.56 M/uL (4.70-6.10); White Blood Count 10.49 K/ul (4.8-10.8)
[2024-11-19 05:32] LABS: Calcium 7.8 mg/dl (8.6-10.3); Creatinine Clr Calc Pharmacy 73.1 ml/min; Magnesium 1.7 mg/dl (1.7-2.4); Phosphorus 3.5 mg/dl (2.5-4.9); Potassium 3.7 mmol/L (3.5-5.1)
[2024-11-19] MEDS: POTASSIUM CHLORIDE 20 MEQ/15 ML UDC NG SCH (06:13)
[2024-11-19] MEDS: ICU ELECTROLYTE REPLACEMENT PROTOCOL SCH (06:13)
[2024-11-19] MEDS: MAGNESIUM SULFATE / D5W 1 GM/100 ML BAG IV SCH (06:14)
--- NOTE | 2024-11-19 07:23 | Hospitalist Progress Note ---
Date of Service November 19, 2024 Assessment & Plan (1) Acute hypoxic respiratory failure: (2) Sepsis: (3) Hypernatremia: (4) History of traumatic brain injury: (5) HTN (hypertension): (6) Paroxysmal A-fib: (7) Schizo affective schizophrenia: Plan 59yo male with history of schizoaffective disorder, at least 2 head injuries with resulting ICH (one of which required surgery per his mother), recurrent pneumonia (4-5 episodes last 2 years per his mother), PAF, prior PEs, bipolar di sorder, major depression, anemia, HTN, GERD, drug induced dyskinesia, and cognitive impairment (which started after one of his traumatic head injuries) presents from [facility] with worsening respiratory distress that progressed to respiratory failure and required intubation, Tested + for non-COVID coronavirus infection on BioFire panel. Tested + for MRSA on NUCLEAR ENGINEERING TECHNICIAN swab. Sepsis from a pulmonary source, concern for non Covid coronavirus and bacterial pneumonia #acute hypoxic respiratory failure - intubation and ventilation zosyn/vancomycin (latter due to MRSA + status) -bronchodilators, pulm toilet, etc. -appreciate operating system programmer assistance #pneumonia - with left lung collapse concern for gram negative and MRSA pneumonoia but cannot rule out impact of non covid coronavirus infection -initially CT chest showed LLL pneumonia -likely with JOVANY involvement and some on the right as well -cont zosyn/vancomycin -bronchoscopy had been considered, -scoliosis and generalized debilitation also contributing to poor lung function and recurrent pneumonia #h/o PAF on Eliquis - -as patient may need bronchoscopy hold Eliquis for now -he is not on AV yonas agents chronically #hypernatremia - -would provide hypotonic fluid with serial BMP #schizoaffective disorder - -cont sertraline to prevent SSRI withdrawal -hold risperidone, paliperidone but resume as soon as possible -cont oxcarbazepine -cont benztropine BID #drug induced tardive dyskinesia - -cont benztropine BID #h/o previous PEs - -dates of such unknown -as he may need bronchoscopy hold Eliquis for now, but if not needed then resume mahogany #cognitive impairment - -per his mother his memory loss started particularly after one of his brain injuries from a fall -I was able to contact one of the medical directors from the SNF and they reported that earlier in October he was oriented to person & year but not the month or place -per his mother he is ambulatory? would need to verify that with the SNF (I attempted to call the SNF multiple times this evening to no avail) #DVT proph - -hold Eliquis in case urgent bronch is needed but resume mahogany otherwise -if Eliquis is on hold longer term then would bridge with lovenox Pt's mother Edwige Tate ([phone]) - who is 90yo - was updated and changed code chaya, brother at bedside also, brother endorses rajat has been declining over last few years and recognizes mother has difficult time accepting this Admission and Anticipated Discharge Date Admission Date: November 18, 2024 Subjective sedated and ventilated updated brother at bedside Physical Exam Physical Exam: sedate on pressors cardiac is regular lungs coarse bilateral breath sounds Results & Data Results & Data Vital Signs (Past 12 Hours) Vital Signs Temp Pulse Pulse Resp BP BP Pulse Ox 11/19/24 06:30 115/73 11/19/24 06:29 98.2 F 68 18 100 11/19/24 06:23 98.2 F 60 18 99 11/19/24 06:15 124/77 11/19/24 06:14 98.4 F 66 18 100 11/19/24 06:05 98.2 F 64 18 100 11/19/24 05:47 98.2 F 63 18 120/76 100 11/19/24 05:33 98.2 F 64 18 100 11/19/24 05:30 98.2 F 64 18 122/76 100 11/19/24 05:18 98.2 F 64 18 115/75 100 11/19/24 05:02 98.2 F 65 18 114/73 100 11/19/24 04:54 98.1 F 65 18 100 11/19/24 04:45 98.2 F 66 18 107/69 100 11/19/24 04:33 98.4 F 69 18 100/65 100 11/19/24 04:27 98.4 F 69 18 100 11/19/24 04:15 98.4 F 70 18 100/67 100 11/19/24 04:00 11/19/24 04:00 98.4 F 95 H 22 94 11/19/24 04:00 72 18 100 11/19/24 03:57 98.4 F 68 18 100 11/19/24 03:45 91/61 L 11/19/24 03:30 91/62 L 11/19/24 03:27 98.4 F 68 18 100 11/19/24 03:15 98.4 F 66 18 93/59 L 100 11/19/24 03:00 98.6 F 61 18 89/60 L 100 11/19/24 02:45 98.6 F 66 18 94/56 L 100 11/19/24 02:30 94/58 L 11/19/24 02:27 98.8 F 65 18 99 11/19/24 02:20 98.8 F 77 18 99 11/19/24 01:51 99.0 F 79 18 98 11/19/24 01:30 99.1 F 77 18 79/50 L 99 11/19/24 01:15 99.3 F 68 18 95/63 L 100 11/19/24 01:04 73 11/19/24 01:00 99.5 F 70 18 97/63 L 100 11/19/24 00:45 98/63 L 11/19/24 00:39 99.5 F 71 18 97/64 L 100 11/19/24 00:03 99.5 F 74 18 99 11/19/24 00:00 99.5 F 73 18 100/67 99 11/19/24 00:00 11/18/24 23:54 99.5 F 74 18 99 11/18/24 23:45 95/62 L 11/18/24 23:39 99.7 F H 74 18 96/61 L 99 11/18/24 23:30 74 19 100 11/18/24 22:45 99.9 F H 75 18 89/55 L 100 11/18/24 22:39 99.9 F H 76 18 100 11/18/24 22:30 95/60 L 11/18/24 22:24 99.9 F H 79 18 100 11/18/24 22:15 103/63 11/18/24 22:12 99.9 F H 79 18 100 11/18/24 22:00 99.9 F H 80 18 109/68 100 11/18/24 21:45 115/71 11/18/24 21:42 99.9 F H 80 18 100 11/18/24 21:24 100.4 F H 82 18 100 11/18/24 21:06 76/46 L 11/18/24 21:03 100.6 F H 83 18 80/48 L 99 11/18/24 21:00 100.6 F H 83 0 L 79/50 L 99 11/18/24 20:55 11/18/24 20:50 11/18/24 20:48 100.8 F H 84 18 74/39 L 99 11/18/24 20:45 11/18/24 20:42 100.6 F H 86 18 98 11/18/24 20:36 100.8 F H 112 H 33 H 133/78 96 11/18/24 20:30 100.9 F H 90 18 95 11/18/24 20:15 122 H 18 98 11/18/24 20:15 101.1 F H 96 H 18 95 11/18/24 20:13 11/18/24 20:06 101.1 F H 107 H 26 H 99/75 L 92 11/18/24 19:40 123 H 20 100 11/18/24 19:30 101.1 F H 109 H 24 96/72 L 95 11/18/24 19:15 100.9 F H 119 H 22 126/93 99 O2 Del Method O2 Del Method FiO2 11/19/24 06:30 11/19/24 06:29 11/19/24 06:23 11/19/24 06:15 11/19/24 06:14 11/19/24 06:05 11/19/24 05:47 11/19/24 05:33 11/19/24 05:30 11/19/24 05:18 11/19/24 05:02 11/19/24 04:54 11/19/24 04:45 11/19/24 04:33 11/19/24 04:27 11/19/24 04:15 11/19/24 04:00 40 11/19/24 04:00 11/19/24 04:00 40 11/19/24 03:57 11/19/24 03:45 11/19/24 03:30 11/19/24 03:27 11/19/24 03:15 11/19/24 03:00 11/19/24 02:45 11/19/24 02:30 11/19/24 02:27 11/19/24 02:20 11/19/24 01:51 11/19/24 01:30 11/19/24 01:15 11/19/24 01:04 11/19/24 01:00 11/19/24 00:45 11/19/24 00:39 11/19/24 00:03 11/19/24 00:00 11/19/24 00:00 40 11/18/24 23:54 11/18/24 23:45 11/18/24 23:39 11/18/24 23:30 40 11/18/24 22:45 11/18/24 22:39 11/18/24 22:30 11/18/24 22:24 11/18/24 22:15 11/18/24 22:12 11/18/24 22:00 11/18/24 21:45 11/18/24 21:42 11/18/24 21:24 11/18/24 21:06 11/18/24 21:03 11/18/24 21:00 11/18/24 20:55 Mechanical Vent 60 11/18/24 20:50 60 11/18/24 20:48 11/18/24 20:45 Mechanical Vent 60 11/18/24 20:42 11/18/24 20:36 11/18/24 20:30 11/18/24 20:15 60 11/18/24 20:15 11/18/24 20:13 Mechanical Vent 11/18/24 20:06 11/18/24 19:40 100 11/18/24 19:30 Mechanical Vent 11/18/24 19:15 Laboratory Results review cbc review chemistry PG Care Time/CCT Total # of Minutes Spent Total Time Spent with Patient: Total time spent is greater than 50% in coordination of care (as documented) at patient's floor/unit and/or counseling patient: Coding Level of Care Code 79198 SUB INP/OBS CARE 3/50MIN Diagnoses Acute hypoxic respiratory failure J96.01 Sepsis A41.9; R65.20; J96.01 Acute respiratory failure type: with hypoxia Sepsis acute organ dysfunction status: with acute organ dysfunction Sepsis type: sepsis due to unspecified organism Severe sepsis acute organ dysfunction type: acute respiratory failure Severe sepsis shock status: unspecified Hypernatremia E87.0 History of traumatic brain injury Z87.820 HTN (hypertension) I10 Paroxysmal A-fib I48.0 Schizo affective schizophrenia F25.9 (2) Sepsis Acute respiratory failure type: with hypoxia Sepsis acute organ dysfunction status: with acute organ dysfunction Sepsis type: sepsis due to unspecified organism Severe sepsis acute organ dysfunction type: acute respiratory failure Severe sepsis shock status: unspecified Qualified Code(s): A41.9 - Sepsis, unspecified organism; R65.20 - Severe sepsis without septic shock; J96.01 - Acute respiratory failure with hypoxia
--- NOTE | 2024-11-19 07:33 | Critical Care Progress Note ---
Date of Service November 19, 2024 Assessment & Plan (1) Hypoxic respiratory failure: (2) Required emergent intubation: (3) Collapse of left lung: (4) Viral illness: (5) Hypernatremia: (6) Shock circulatory: Plan Reason Critically Ill: 59 YOM presented with hypoxic respiratory failure and collapse of left lung secondary to mucous obstruction, required intubation and mechanical ventilation- post intubation and lavage with improvement in aeration of the left lung. To ICU for continued pulmonary support and management of secretions and expectoration. Neuro - Sedation for mechanical ventilation, Hx: Bipolar, intracranial bleeding, schizoaffective disorder, seizure disorder unspecified CAM ICU: LINDA - Sedation with Fentanyl and Propofol for RASS -1 - Continue with his Cogentin for his drug induced dyskinesias - Continue- Sertraline, Trileptal, risperidone - follow QTc while on fentanyl, daily ECGs Patient at baseline is nonverbal, he does not usually have any meaningful conversation with the family. He does recognize the family. Cardiac - Shock- circulatory ; Hx HTN --Shock Multifactorial Combination of sepsis as well as sedation Random cortisol 18.75 Continue vasopressor support to keep MAP greater than 65 -- History of PAF- currently NSR On Eliquis at home On bronchoscopy patient did have friable mucosa, continue with subcu heparin for the time being Respiratory - Hypoxic respiratory failure requiring intubation, left lung collapse secondary to mucoid obstruction, Viral illness CT chest 11/18/2024 personally reviewed: Motion degraded study Groundglass opacities appreciated in the left upper lobe Collapse of the left lower lobe Small left-sided pleural effusion Mediastinal shift to the left Cardiomegaly Mild station 7 lymphadenopathy Respiratory BioFire was positive for coronavirus Procalcitonin 0.33, nasal MRSA positive --Left lower lobe collapse S/p bronchoscopy 11/19/2024, mucous plugging was removed, significant erythema and friable mucosa with easy bleeding Continue with hypertonic saline nebulized, chest vest, inhaled bronchodilators --Multifocal pneumonia Continue with antibiotics Look at the ID section GI - Hx GERD -- Continue with PPI RENAL/LYTES - -- Hypernatremia --> resolved Monitor BUNs/creatinine Avoid nephrotoxic medication ENDO - No acute needs -- Continue with ICU hypoglycemia protocol HEME - 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 There is an artifact on the right side most likely skinfold. Patient will be started on tube feeds Given that the urine output has decreased I will start the patient on half NS at 70 mL/h. Potassium and magnesium being replaced Patient's mother and brother were at bedside, current condition and prognosis was explained to the patient's family They do understand that given the baseline poor mental status it is difficult to extubate as they will always be high risk of intubation. Patient did not want anything aggressive in the past. Tracheostomy would not be a good option and they agree. He is on minimal ventilator setting right now. I will try to see if I am able to extubate him tomorrow probably with the help of Precedex. If the patient requires reintubation then discussion will be made with family to see whether they would like that to happen or no. I have personally spent 52 minutes of critical care time in the direct management of this patient. This is a life/limb threatening event. This includes time spent evaluating patient, direct bedside care, chart review, placing orders, interpretation of diagnostic studies, discussion with consultants, patient, and family members, as well as other required patient management activities. This time is exclusive of all separately billable procedures, and teaching time and separate from and in addition to any other critical care service time. Please note the above document was generated using voice recognition software. It may contain grammatical, syntax or spelling errors. Admission and Anticipated Discharge Date Admission Date: November 18, 2024 Subjective Patient seen and examined at bedside. No acute distress, no adverse events overnight He was on 50 of fentanyl, 35 propofol at the time of examination He was breathing with the vent He was on 0.09 of Levophed with systolic blood pressure in the 100s and MAP 71 Tmax 38.3 Review of Systems 2 Review of Systems: All systems reviewed & are unremarkable except as noted in Subjective, Unobtainable due to cognitive status and Unobtainable due to endotracheal tube Physical Exam 2 Physical Exam: Constitutional: No acute distress HEENT: EOMI, PERRLA Respiratory system: Decreased air entry bilaterally, more decreased on the left side, no wheeze, positive rhonchi bilaterally, positive crackles bilateral lower lobes CVS: S1-S2 positive, no murmurs or gallops Abdomen: Soft, nontender, nondistended, positive bowel sounds x4 Extremities: +2 pulses bilaterally radialis/ dorsalis pedis, no cyanosis, no edema Neuro: Sedated, breathing with the vent, not following commands Psych: Unable to assess G/U: Positive Bhakta Skin: no rashes, warm and dry Lymphatic: no cervical or axillary lymphadenopathy Results & Data Results & Data Vital Signs (Past 12 Hours) Vital Signs Temp Pulse Resp BP Pulse Ox O2 Del Method O2 Del Method 11/19/24 06:30 115/73 11/19/24 06:29 36.8 C 68 18 100 11/19/24 06:23 36.8 C 60 18 99 11/19/24 06:15 124/77 11/19/24 06:14 36.9 C 66 18 100 11/19/24 06:05 36.8 C 64 18 100 11/19/24 05:47 36.8 C 63 18 120/76 100 11/19/24 05:33 36.8 C 64 18 100 11/19/24 05:30 36.8 C 64 18 122/76 100 11/19/24 05:18 36.8 C 64 18 115/75 100 11/19/24 05:02 36.8 C 65 18 114/73 100 11/19/24 04:54 36.7 C 65 18 100 11/19/24 04:45 36.8 C 66 18 107/69 100 11/19/24 04:33 36.9 C 69 18 100/65 100 11/19/24 04:27 36.9 C 69 18 100 11/19/24 04:15 36.9 C 70 18 100/67 100 11/19/24 04:00 11/19/24 04:00 36.9 C 95 H 22 94 11/19/24 04:00 72 18 100 11/19/24 03:57 36.9 C 68 18 100 11/19/24 03:45 91/61 L 11/19/24 03:30 91/62 L 11/19/24 03:27 36.9 C 68 18 100 11/19/24 03:15 36.9 C 66 18 93/59 L 100 11/19/24 03:00 37.0 C 61 18 89/60 L 100 11/19/24 02:45 37.0 C 66 18 94/56 L 100 11/19/24 02:30 94/58 L 11/19/24 02:27 37.1 C 65 18 99 11/19/24 02:20 37.1 C 77 18 99 11/19/24 01:51 37.2 C 79 18 98 11/19/24 01:30 37.3 C 77 18 79/50 L 99 11/19/24 01:15 37.4 C 68 18 95/63 L 100 11/19/24 01:04 73 11/19/24 01:00 37.5 C 70 18 97/63 L 100 11/19/24 00:45 98/63 L 11/19/24 00:39 37.5 C 71 18 97/64 L 100 11/19/24 00:03 37.5 C 74 18 99 11/19/24 00:00 37.5 C 73 18 100/67 99 11/19/24 00:00 11/18/24 23:54 37.5 C 74 18 99 11/18/24 23:45 95/62 L 11/18/24 23:39 37.6 C H 74 18 96/61 L 99 11/18/24 23:30 74 19 100 11/18/24 22:45 37.7 C H 75 18 89/55 L 100 11/18/24 22:39 37.7 C H 76 18 100 11/18/24 22:30 95/60 L 11/18/24 22:24 37.7 C H 79 18 100 11/18/24 22:15 103/63 11/18/24 22:12 37.7 C H 79 18 100 11/18/24 22:00 37.7 C H 80 18 109/68 100 11/18/24 21:45 115/71 11/18/24 21:42 37.7 C H 80 18 100 11/18/24 21:24 38.0 C H 82 18 100 11/18/24 21:06 76/46 L 11/18/24 21:03 38.1 C H 83 18 80/48 L 99 11/18/24 21:00 38.1 C H 83 0 L 79/50 L 99 11/18/24 20:55 Mechanical Vent 11/18/24 20:50 11/18/24 20:48 38.2 C H 84 18 74/39 L 99 11/18/24 20:45 Mechanical Vent 11/18/24 20:42 38.1 C H 86 18 98 11/18/24 20:36 38.2 C H 112 H 33 H 133/78 96 11/18/24 20:30 38.3 C H 90 18 95 11/18/24 20:15 122 H 18 98 11/18/24 20:15 38.4 C H 96 H 18 95 11/18/24 20:13 Mechanical Vent 11/18/24 20:06 38.4 C H 107 H 26 H 99/75 L 92 11/18/24 19:40 123 H 20 100 FiO2 11/19/24 06:30 11/19/24 06:29 11/19/24 06:23 11/19/24 06:15 11/19/24 06:14 11/19/24 06:05 11/19/24 05:47 11/19/24 05:33 11/19/24 05:30 11/19/24 05:18 11/19/24 05:02 11/19/24 04:54 11/19/24 04:45 11/19/24 04:33 11/19/24 04:27 11/19/24 04:15 11/19/24 04:00 40 11/19/24 04:00 11/19/24 04:00 40 11/19/24 03:57 11/19/24 03:45 11/19/24 03:30 11/19/24 03:27 11/19/24 03:15 11/19/24 03:00 11/19/24 02:45 11/19/24 02:30 11/19/24 02:27 11/19/24 02:20 11/19/24 01:51 11/19/24 01:30 11/19/24 01:15 11/19/24 01:04 11/19/24 01:00 11/19/24 00:45 11/19/24 00:39 11/19/24 00:03 11/19/24 00:00 11/19/24 00:00 40 11/18/24 23:54 11/18/24 23:45 11/18/24 23:39 11/18/24 23:30 40 11/18/24 22:45 11/18/24 22:39 11/18/24 22:30 11/18/24 22:24 11/18/24 22:15 11/18/24 22:12 11/18/24 22:00 11/18/24 21:45 11/18/24 21:42 11/18/24 21:24 11/18/24 21:06 11/18/24 21:03 11/18/24 21:00 11/18/24 20:55 60 11/18/24 20:50 60 11/18/24 20:48 11/18/24 20:45 60 11/18/24 20:42 11/18/24 20:36 11/18/24 20:30 11/18/24 20:15 60 11/18/24 20:15 11/18/24 20:13 11/18/24 20:06 11/18/24 19:40 100 Laboratory Results 11/19/24 04:51 11/19/24 04:51 Coding Level of Care Code 97471 CRITICAL CARE 1ST 30-74M Diagnoses Hypoxic respiratory failure J96.91 Required emergent intubation Z98.890 Collapse of left lung J98.11 Viral illness B34.9 Hypernatremia E87.0 Shock circulatory R57.9
[2024-11-19] MEDS: PROPOFOL BOLUS FROM BAG IV PRN (08:40)
--- NOTE | 2024-11-19 09:02 | Procedure Note ---
Procedure Note: Bronchoscopy Procedure PREOPERATIVE DIAGNOSIS: Left lower lobe collapse POSTOPERATIVE DIAGNOSIS: Mucous plugging of the left lower lobe with friable mucosa PROCEDURE PERFORMED: Flexible fiberoptic bronchoscopy with therapeutic clearance of mucous plugs and BAL COMPLICATIONS: None. INDICATION: Left lower lobe collapse PROCEDURE: Consent was obtained from patient's mother, patient was already in the ICU. The patient had appropriate oxygen, blood pressure, heart rate, and respiratory rate monitoring applied and monitored continuously throughout the procedure. Ventilator FiO2 was increased to 100%. Patient was given total of 60 mg of propofol and 75 mcg of fentanyl during the procedure Initially asunercept with the scope. Patient had fits of coughing. Flexible bronchoscope was withdrawn. Patient was sedated more before going back in and lidocaine 1% was instilled at the connor. The trachea appeared normal.The bronchoscope was then advanced through the connor, which was widened. There was white phlegm appreciated right at the connor which was suctioned out. The scope was then advanced into the right main stem and each segment, subsegement in the right upper lobe, right middle lobe and right lower lobe were visualized. Moderate amount of creamy white secretion which were suctioned out. There were no other findings including evidence of mass, anatomic distortions, or hemorrhage. The bronchoscope was subsequently withdrawn and advanced into the left mainstem. The mucosa was found to be very friable. It was erythematous and oozing blood. Moderate amount of creamy white secretion was appreciated especially in the lingular segment as well as left lower lobe. Mucous plugging the left lower lobe were suctioned out. Again, each segment and subsegment was well visualized. No specific masses or other lesions were identified throughout the tracheobronchial tree on the left. The bronchoscope was then wedged in the left lower lobe and bronchoalveolar lavage samples were obtained. 120 ml of saline was instilled and 45 ml of fluid was aspirated back.The bronchoscope was withdrawn and the area was suctioned clear. The bronchoscope was then withdrawn to the mainstem. The area was suctioned clear. The bronchoscope was then withdrawn. The patient tolerated the procedure well without evidence of desaturation or complications. Bronchoalveolar lavage samples were sent for cell count, Gram stain and bacterial culture, AFB culture and smear, fungal culture and smear and cytology. Recommendations: Follow-up micro, cytology and pathology Follow-up chest x-ray Please note the above document was generated using voice recognition software. It may contain grammatical, syntax or spelling errors.Any formal questions or concerns about the content, text or information contained within the body of this dictation should be directly addressed to the provider for clarification. [facility] [place]Charges) Pulmonary/Thoracic Procedure 1: Pulmonary and Thoracic: 22246 Bronchoscopy, clear airways Procedure 2: Pulmonary and Thoracic: 20158 Dx bronchoscopy/BAL
--- NOTE | 2024-11-19 09:03 | XRay Report ---
EXAM: XR chest 1V portable CLINICAL HISTORY: RESPIRATORY FAILURE. TECHNIQUE: X-ray image of the chest obtained in 1 AP projection. COMPARISON: CR dated 07/01/2024 FINDINGS: Pulmonary Parenchyma: Complete opacification in left hemithorax with few air bronchograms in upper zone likely left lung collapse-consolidation with pleural effusion. Prominent bronchovascular markings in right lung. Mild blunting of right CP angle likely small pleural effusion. Heart and Mediastinum: Heart is obscured by left hemithorax opacification. No mediastinal widening or masses. No hilar or mediastinal lymphadenopathy. Bony Thorax: Spondylotic changes in thoracic spine with scoliotic convexity to the right. Left shoulder replacement prosthesis. Bony thorax appears intact without fractures or deformities. Soft Tissues: Soft tissues overlying the chest wall are unremarkable. IMPRESSION: 1. Complete opacification in left hemithorax with few air bronchograms in upper zone likely left lung collapse-consolidation with pleural effusion, new finding. 2. Prominent bronchovascular markings in right lung, stable. 3. Mild blunting of right CP angle likely small pleural effusion, new finding. Electronically signed by Ranjan Maddox 11-19-2024 09:03 AM
--- NOTE | 2024-11-19 09:18 | XRay Report ---
EXAM: XR chest 1V portable CLINICAL HISTORY: Eval lines, tubes, lung kay TECHNIQUE: An X-ray image of the chest is obtained in AP projection. COMPARISON: Prior chest X-ray dated 11/18/2024. FINDINGS: Newly inserted ET tube, its tip is 2.6 cm above the carinal level (considering the patient`s flexed neck, this seems an adequate place). Interval NGT insertion, its tip passes below the left hemidiaphragm; adequate place. Pulmonary Parenchyma: Good reaeration of the left lung. Residual left upper and stable right middle small airspace opacities. There is apparent eccenteric lucency related to the right lung field; projectional/artifact. Blunted both costophrenic angles are again noted, suggesting minimal pleural effusion or old reaction. Heart and Mediastinum: Heart size and shape are normal. No mediastinal widening or masses. No hilar or mediastinal lymphadenopathy. Bony Thorax: Bony thorax appears intact without fractures or deformities. Left humeral prosthesis. Soft Tissues: Soft tissues overlying the chest wall are unremarkable. IMPRESSION: 1. Newly inserted ET tube, its tip is 2.6 cm above the carinal level (considering the patient`s flexed neck, this seems an adequate place). 2. Interval NGT insertion, its tip passes below the left hemidiaphragm; adequate place. 3. Good reaeration of the left lung. 4. Residual left upper and stable right middle small airspace opacites. Electronically signed by Ranjan Maddox 11-19-2024 09:17 AM
--- NOTE | 2024-11-19 09:50 | XRay Report ---
XR chest 1V portable HISTORY: 59 years-old Male Post Bronchoscopy COMPARISON: 11/19/2024 TECHNIQUE: AP view of the chest FINDINGS: Cardiac silhouette is enlarged. Endotracheal tube redemonstrated terminating 3.8 cm superior to the c martell. Enteric tube courses below the diaphragm with the distal tip out of the field of view. Small pleural effusions. Bibasilar and mid lung opacities appear unchanged. No pneumothorax. Sigmoida l thoracolumbar scoliosis again noted. Left shoulder arthroplasty. Cholecystectomy. IMPRESSION: 1. Endotracheal and enteric tubes as above. 2. No pneumothorax. 3. Cardiomegaly with unchanged pleural effusions, bibasilar and midlung airspace opacities. ACT 112: Negative or not required by law. The above report was generated using voice recognition software. It may contain grammatical, syntax o r spelling errors. Electronically signed by: Adriel Vargas M.D. 11/19/2024 9:47 AM
[2024-11-19 11:18] LABS: Fluid Mono/Macrophage 5 %; Lymphocyte Body Fluid Man 0 %; Neutrophil Body Fluid Man 95 %
[2024-11-19] MEDS: TUBE FEEDING WATER FLUSH OG SCH (11:29)
[2024-11-19] MEDS: guaiFENesin/DEXTROM SYRUP 200MG/20MG 10ML UDC PO SCH (13:50)
[2024-11-19] MEDS: SODIUM CHLORIDE 0.45 % 1,000 ML IV SCH (13:56)
[2024-11-19] MEDS: PEPTAMEN INTENSE VHP 1.0 CAL 1,000 ML BAG OG SCH (14:45)
[2024-11-19] MEDS: ACETAMINOPHEN 1,000 MG/100 ML VIAL IV PRN (16:46)
[2024-11-19] MEDS: ICU Protocol for HYPERglycemia SCH (18:15)
[2024-11-19] MEDS: SODIUM CHLOR 7% 4 ML NEB NEB SCH (20:09)
[2024-11-19] MEDS: OXcarbazepine 60MG/ML SUSP GT SCH (21:45)
--- NOTE | 2024-11-19 22:54 | Communication Note ---
Date of Service: November 19, 2024 S: Patient into Aflutter- rate controlled O: HR 56 BP 114/72, RR, 18, SPo2 97%- Levophed decreased to 0.07mcg/kg/min A/P: Patient with history of PAF noted- and now in atrial flutter rate controlled - He is normally on Eliquis- this has been held secondary to him in NSR as well as friable bronchials with bleeding noted on bronchoscopy - Will check BMP and Mag at this time- goal K ~ 4.0, Mg ~2.0 - PTT/PT/INR now - Will place on heparin infusion without bolus - monitor for any bleeding or hemoptysis as this is relatively easy to discontinue and reverse if needed Ezra LOCKETT ([facility]-)
[2024-11-19 23:36] LABS: BUN Creatinine Ratio 22.1 (10-20); Calcium 7.6 mg/dl (8.6-10.3); Magnesium 2.4 mg/dl (1.7-2.4); Potassium 3.5 mmol/L (3.5-5.1)
[2024-11-19 23:48] LABS: Partial Thromboplastin Ratio 1.4; Partial Thromboplastin Time 39 Seconds (21-31); Prothrombin Time 11.2 Seconds (9.0-12.0)
[2024-11-20] MEDS: POTASSIUM CHLORIDE 20 MEQ/15 ML UDC PO STA (00:05)
[2024-11-20] MEDS: Heparin IV Adult Wt-Based Low-Dose *NO* INITIAL Bolus Protocol IV STA (00:05)
[2024-11-20] MEDS: HEPARIN 25000 UNIT/500 ML D5W 25,000 UNITS/500 ML BAG IV SCH (00:05)
[2024-11-20] MEDS: fentaNYL BOLUS from BAG IV PRN (03:52)
[2024-11-20 04:30] LABS: Basophils # (auto) 0.02 K/uL (0.00-0.20); Basophils % (auto) 0.3 %; Eosinophils # (auto) 0.16 K/uL (0.00-0.50); Eosinophils % (auto) 2.2 %; Hematocrit (blood only) 34.2 % (42.0-52.0); Hemoglobin 11.1 g/dl (14.0-18.0); Immature Granulocytes # (auto) 0.05 K/uL (0.01-0.20); Immature Granulocytes % (auto) 0.7 %; Lymphocytes # (auto) 0.87 K/uL (1.20-3.40); Mean Corpuscular Hemoglobin 29.8 pg (25.0-34.0); Mean Corpuscular Hgb Conc 32.5 g/dL (32.0-36.0); Mean Corpuscular Volume 91.9 fL (80.0-100.0); Mean Platelet Volume 9.6 fL (9.4-12.4); Monocytes % (auto) 5.5 %; Neutrophils # (auto) 5.78 K/uL (1.40-6.50); Neutrophils % (auto) 79.3 %; Platelet Count 154 K/uL (130-400); RDW Coefficient of Variation 13.5 % (11.5-14.5); RDW Standard Deviation 45.5 fL (36.4-46.3); Red Blood Count 3.72 M/uL (4.70-6.10); White Blood Count 7.28 K/ul (4.8-10.8)
[2024-11-20] MEDS: VANCOMYCIN LEVEL ONE (04:40)
[2024-11-20 04:47] LABS: Calcium 7.7 mg/dl (8.6-10.3); Creatinine Clr Calc Pharmacy 80.9 ml/min; Magnesium 2.3 mg/dl (1.7-2.4); Phosphorus 3.1 mg/dl (2.5-4.9)
--- NOTE | 2024-11-20 06:52 | XRay Report ---
EXAM: XR chest 1V portable CLINICAL HISTORY: eval lines, tubes, lung kay. TECHNIQUE: An X-ray image of the chest is obtained in AP projection. COMPARISON: Prior X-ray on 11/19/2024 FINDINGS: The endotracheal tube, whose tip is 2.9 cm above the carinal level seems an adequate place. Unchanged NGT, its tip passes below the left hemidiaphragm; adequate place. A tubular structure was seen projecting over the left upper lung zone, and another tube was seen coursing over the right hemithorax advised for clinical correlation Pulmonary Parenchyma: Unchanged right middle and left upper small airspace opacities. Cardiomegaly, seen projecting over the left lower lung zone and left costophrenic angle Blunted right costophrenic angle Heart and Mediastinum: Mild left mediastinal shifting. cardiomegaly No mediastinal widening or masses. No hilar or mediastinal lymphadenopathy. Bony Thorax: The bony thorax appears intact without fractures or deformities. Left humeral prosthesis Soft Tissues: Soft tissues overlying the chest wall are unremarkable. IMPRESSION: 1. The endotracheal tube, whose tip is 2.9 cm above the carinal level seems an adequate place. 2. Unchanged Nasogastric tube, its tip passes below the left hemidiaphragm; adequate place. 3. A tubular structure was seen projecting over the left upper lung zone, and another tube was seen coursing over the right hemithorax advised for clinical correlation. New. 4. Unchanged right middle and left middle and upper small airspace opacities. 5. Cardiomegaly, seen projecting over the left lower lung zone and left costophrenic angle. 6. Blunted right costophrenic angle. 7. No interval changes. Electronically signed by Ranjan Maddox 11-20-2024 06:52 AM
--- NOTE | 2024-11-20 07:44 | Critical Care Progress Note ---
Date of Service November 20, 2024 Assessment & Plan (1) Hypoxic respiratory failure: (2) Required emergent intubation: (3) Collapse of left lung: (4) Viral illness: (5) Hypernatremia: (6) Shock circulatory: Plan Reason Critically Ill: 59 YOM presented with hypoxic respiratory failure and collapse of left lung secondary to mucous obstruction, required intubation and mechanical ventilation- post intubation and lavage with improvement in aeration of the left lung. To ICU for continued pulmonary support and management of secretions and expectoration. Neuro - Sedation for mechanical ventilation, Hx: Bipolar, intracranial bleeding, schizoaffective disorder, seizure disorder unspecified CAM ICU: [facility] - Sedation with Fentanyl and Propofol for RASS -1 - Continue with his Cogentin for his drug induced dyskinesias - Continue- Sertraline, Trileptal, risperidone - follow QTc while on fentanyl, daily ECGs Patient at baseline is nonverbal, he does not usually have any meaningful conversation with the family. He does recognize the family. Cardiac - Shock- circulatory ; Hx HTN --Shock Multifactorial Combination of sepsis as well as sedation Random cortisol 18.75 Continue vasopressor support to keep MAP greater than 65 -- History of PAF- currently NSR On Eliquis at home On bronchoscopy patient did have friable mucosa, continue with subcu heparin for the time being Respiratory - Hypoxic respiratory failure requiring intubation, left lung collapse secondary to mucoid obstruction, Viral illness CT chest 11/18/2024 personally reviewed: Motion degraded study Groundglass opacities appreciated in the left upper lobe Collapse of the left lower lobe Small left-sided pleural effusion Mediastinal shift to the left Cardiomegaly Mild station 7 lymphadenopathy Respiratory BioFire was positive for coronavirus Procalcitonin 0.33, nasal MRSA positive --Left lower lobe collapse S/p bronchoscopy 11/19/2024, mucous plugging was removed, significant erythema and friable mucosa with easy bleeding Continue with hypertonic saline nebulized, chest vest, inhaled bronchodilators --Multifocal pneumonia Continue with antibiotics Look at the ID section GI - Hx GERD -- Continue with PPI RENAL/LYTES - -- Hypernatremia --> resolved Monitor BUNs/creatinine Avoid nephrotoxic medication ENDO - No acute needs -- Continue with ICU hypoglycemia protocol HEME - [facility] use of DOAC --Normocytic anemia Monitor H&H Transfuse for hemoglobin less than 7 ID - Non COVID viral illness, multifocal pneumonia --Multifocal pneumonia Nasal MRSA positive, sputum sputum for vent growing MRSA Respiratory BioFire positive for coronavirus Procalcitonin 0.03 Continue with antibiotics --Prophylaxis VTE: On Eliquis at home, Heparin subcu GI: Famotidine Lines: Peripheral Diet: Tube feeds Plan: In/out: +2 L, urine output 2 L, +7 L since coming to the hospital Chest x-ray from today still shows consolidative process in the left lower lobe, left upper lobe is clear Continue with antibiotics for MRSA pneumonia Still having some pinkish secretions from the ET tube Hypocalcemia being replaced Trial of extubation today Had discussion with patient's mother and brother bedside on 11/19/2024, current condition and prognosis was explained to the patient's family They do understand that given the baseline poor mental status it is difficult to extubate as they will always be high risk of intubation. Patient did not want anything aggressive in the past. Tracheostomy would not be a good option and they agree. I have personally spent 38 minutes of critical care time in the direct management of this patient. This is a life/limb threatening event. This includes time spent evaluating patient, direct bedside care, chart review, placing orders, interpretation of diagnostic studies, discussion with consultants, patient, and family members, as well as other required patient management activities. This time is exclusive of all separately billable procedures, and teaching time and separate from and in addition to any other critical care service time. Please note the above document was generated using voice recognition software. It may contain grammatical, syntax or spelling errors. Admission and Anticipated Discharge Date Admission Date: November 18, 2024 Subjective Patient seen and examined at bedside. No acute distress, no adverse events overnight He was on 25 of fentanyl and 25 propofol at the time of examination Systolic blood pressure in the 130s saturation 97% 25% FiO2, heart rate in the 80s Has been afebrile Unfortunately he is not following any commands He tries to move his extremities to voice but does not follow Review of Systems 2 Review of Systems: Unobtainable due to mental health condition and Unobtainable due to endotracheal tube Physical Exam 2 Physical Exam: Constitutional: No acute distress HEENT: PERRLA, right anterior frontal scar appreciated Respiratory system: Decreased air entry bilaterally, more decreased on the left lower side, no wheeze, no rhonchi, positive crackles bilateral lower lobes CVS: S1-S2 positive, no murmurs or gallops Abdomen: Soft, nontender, nondistended, positive bowel sounds x4 Extremities: +2 pulses bilaterally radialis/ dorsalis pedis, no cyanosis, no edema Neuro: Sedated, breathing with the vent, not following commands Psych: Unable to assess G/U: Positive Bhakta Skin: no rashes, warm and dry Lymphatic: no cervical or axillary lymphadenopathy Results & Data Results & Data Vital Signs (Past 12 Hours) Vital Signs Temp Pulse Resp BP Pulse Ox FiO2 11/20/24 06:03 37.1 C 66 18 125/82 100 11/20/24 05:57 37.0 C 66 0 L 99 11/20/24 05:54 37.1 C 67 18 99 11/20/24 05:36 37.0 C 65 18 98 11/20/24 05:15 121/83 11/20/24 05:12 36.9 C 63 18 98 11/20/24 05:03 36.9 C 64 18 124/81 99 11/20/24 04:48 36.9 C 68 18 118/78 100 11/20/24 04:42 36.9 C 68 22 99 11/20/24 04:36 36.9 C 71 18 118/75 100 11/20/24 04:27 36.9 C 71 22 100 11/20/24 04:15 112/75 11/20/24 04:00 110/72 11/20/24 04:00 24 11/20/24 03:51 128/83 11/20/24 03:27 36.9 C 72 18 98 11/20/24 03:18 36.9 C 74 18 95 11/20/24 03:15 105/70 11/20/24 03:09 36.9 C 76 18 94 11/20/24 03:03 36.9 C 76 18 98/66 L 94 11/20/24 02:48 37.0 C 78 18 94/67 L 94 11/20/24 02:42 37.0 C 79 19 94 11/20/24 02:33 37.0 C 78 18 100/74 94 11/20/24 02:30 71 18 98 24 11/20/24 02:27 37.1 C 78 19 94 11/20/24 02:18 37.1 C 76 18 115/81 95 11/20/24 02:03 37.0 C 65 18 97 11/20/24 02:00 37.0 C 65 18 116/84 97 11/20/24 01:57 37.0 C 64 18 97 11/20/24 01:45 112/80 11/20/24 01:42 37.0 C 65 18 97 11/20/24 01:33 37.0 C 65 18 112/82 97 11/20/24 01:18 37.0 C 66 18 105/74 97 11/20/24 01:06 37.0 C 66 18 103/74 96 11/20/24 00:45 107/79 11/20/24 00:39 37.0 C 67 18 97 11/20/24 00:00 24 11/19/24 23:31 57 L 11/19/24 23:25 68 18 97 24 11/19/24 23:09 37.0 C 55 L 19 107/79 99 11/19/24 22:54 37.0 C 63 18 97 11/19/24 22:48 36.9 C 59 L 18 96 11/19/24 22:45 114/72 11/19/24 22:39 36.9 C 57 L 19 97 11/19/24 22:33 36.9 C 59 L 18 117/75 98 11/19/24 22:21 36.8 C 56 L 18 98 11/19/24 22:18 36.8 C 58 L 18 98 11/19/24 22:15 104/72 11/19/24 22:03 36.8 C 62 18 116/83 96 11/19/24 21:48 36.7 C 65 18 127/79 97 11/19/24 21:36 36.7 C 66 18 97 11/19/24 21:30 36.7 C 66 18 97/68 L 96 11/19/24 21:27 36.7 C 67 18 96 11/19/24 21:15 117/75 11/19/24 21:06 36.8 C 68 18 107/69 95 11/19/24 20:45 104/68 11/19/24 20:30 37.0 C 74 18 94 11/19/24 20:18 37.1 C 76 25 H 94 11/19/24 20:15 97/67 L 11/19/24 20:09 37.1 C 69 18 96 11/19/24 20:06 37.1 C 77 18 94 11/19/24 20:00 90 18 98 24 11/19/24 19:48 24 11/19/24 19:45 37.2 C 61 18 125/79 98 Laboratory Results 11/20/24 04:00 11/20/24 04:00 Coding Level of Care Code 52855 CRITICAL CARE 1ST 30-74M Diagnoses Hypoxic respiratory failure J96.91 Required emergent intubation Z98.890 Collapse of left lung J98.11 Viral illness B34.9 Hypernatremia E87.0 Shock circulatory R57.9
[2024-11-20] MEDS: MULTI VIT W/MINERALS LIQUID 15 ML UDC NG SCH (07:58)
[2024-11-20] MEDS: CALCIUM GLUCONATE 1,000 MG/60 ML BAG IV STA (08:00)
--- NOTE | 2024-11-20 09:39 | Electrocardiogram Report ---
Test Reason : Blood Pressure : */* mmHG Vent. Rate : 110 BPM Atrial Rate : 110 BPM P-R Int : 172 ms QRS Dur : 76 ms QT Int : 332 ms P-R-T Axes : 36 -9 25 degrees QTcB Int : 449 ms Sinus tachycardia Left atrial enlargement Borderline ECG When compared with ECG of 01-Jul-2024 04:31, Fusion complexes are now Present Confirmed by Pawel Naranjo ([id number]) on 11/20/2024 9:38:49 AM Referred By: Confirmed By: Pawel Naranjo
--- NOTE | 2024-11-20 09:44 | Electrocardiogram Report ---
Test Reason : Blood Pressure : */* mmHG Vent. Rate : 67 BPM Atrial Rate : 67 BPM P-R Int : 190 ms QRS Dur : 74 ms QT Int : 424 ms P-R-T Axes : 21 11 31 degrees QTcB Int : 448 ms Normal sinus rhythm Possible Left atrial enlargement Borderline ECG When compared with ECG of 18-Nov-2024 13:53, (unconfirmed) Fusion complexes are no longer Present Vent. rate has decreased by 43 bpm Non-specific change in ST segment in Inferior leads Confirmed by Pawel Naranjo ([id number]) on 11/20/2024 9:43:39 AM Referred By: [facility] Confirmed By: Pawel Naranjo
--- NOTE | 2024-11-20 10:06 | Electrocardiogram Report ---
Test Reason : Blood Pressure : */* mmHG Vent. Rate : 64 BPM Atrial Rate : 271 BPM P-R Int : * ms QRS Dur : 78 ms QT Int : 438 ms P-R-T Axes : * 44 26 degrees QTcB Int : 451 ms Atrial flutter with variable A-V block Abnormal ECG When compared with ECG of 19-Nov-2024 03:52, (unconfirmed) Atrial flutter has replaced Sinus rhythm Confirmed by Pawel Naranjo ([id number]) on 11/20/2024 10:05:40 AM Referred By: [facility] Confirmed By: Pawel Naranjo
[2024-11-20] MEDS: levETIRAcetam 500 MG/5 ML VIAL **500mg IV SCH (11:11)
--- NOTE | 2024-11-20 13:21 | Pharmacy Report ---
Pharmacy PK ABX Note - Date of Service November 20, 2024 - Assessment and Plan Assessment 11/20 * MRSA growing from sputum from vent and Left lower lobe bronch. Plan to treat with minimum 7 days of vancomycin. Zosyn to continue for 5 days. * Random level 11.2 this morning indicates therapeutic dosing, will continue with current dose * Extubated this AM, febrile today, normal WBC 11/19 59 year old who presented with hypoxic respiratory failure and collapse of left lung secondary to mucous obstruction, s/p intubation and mechanical ventilation. Ordered empiric vancomycin and pip/tazo IV. BC and sputum culture pending. Positive MRSA nasal swab, respiratory PCR panel detected Coronavirus (OC43). h/o MRSA per provider notes. Plan Vancomycin * Loading dose: 1500 mg IV x 1 * Maintenance dose: 1000 mg IV every 12 hours * Regimen is predicted to achieve target AUC/KYLE of 400-600 mg/L.hr * Random level in 2-3 days or with renal function changes Pharmacy will continue to follow and will adjust dose/frequency as necessary. Thank you. Pharmacy has transitioned to AUC monitoring for vancomycin. AUC/KYLE is the preferred PK/PD target and is associated with decreased risk of nephrotoxicity compared to traditional trough targets.
[2024-11-20] MEDS: ALBUT/IPRATROP 3MG/0.5MG NEB 3 ML VIAL INH SCH (15:47)
[2024-11-20] MEDS ORDERED: Nursing to Pharmacy Communication SCH (17:00)
--- NOTE | 2024-11-20 18:36 | Hospitalist Progress Note ---
Date of Service November 20, 2024 Assessment & Plan (1) Acute hypoxic respiratory failure: (2) Sepsis: (3) Hypernatremia: (4) History of traumatic brain injury: (5) HTN (hypertension): (6) Paroxysmal A-fib: (7) Schizo affective schizophrenia: Plan 59yo male with history of schizoaffective disorder, at least 2 head injuries with resulting ICH (one of which required surgery per his mother), recurrent pneumonia (4-5 episodes last 2 years per his mother), PAF, prior PEs, bipolar disorder, major depression, anemia, HTN, GERD, drug induced dyskinesia, and cognitive impairment (which started after one of his traumatic head injuries) presents from [facility] with worsening respiratory distress that progressed to respiratory failure and required intubation, Tested + for non-COVID coronavirus infection on BioFire panel. Tested + for MRSA on BOOK TRIMMER swab. Sepsis from a pulmonary source, concern for non Covid coronavirus and bacterial pneumonia #acute hypoxic respiratory failure - intubation and ventilation zosyn/vancomycin (latter due to MRSA + status) -bronchodilators, pulm toilet, etc. -appreciate professional nursing assistant assistance - trial of extubation today. #pneumonia - with left lung collapse concern for gram negative and MRSA pneumonoia but cannot rule out impact of non covid coronavirus infection -initially CT chest showed LLL pneumonia -likely with JOVANY involvement and some on the right as well -cont zosyn/vancomycin -bronchoscopy had been considered, -scoliosis and generalized debilitation also contributing to poor lung function and recurrent pneumonia #h/o PAF on Eliquis - -as patient may need bronchoscopy hold Eliquis for now -he is not on AV yonas agents chronically #hypernatremia - -would provide hypotonic fluid with serial BMP #schizoaffective disorder - -cont sertraline to prevent SSRI withdrawal -hold risperidone, paliperidone but resume as soon as possible -cont oxcarbazepine -cont benztropine BID #drug induced tardive dyskinesia - -cont benztropine BID #h/o previous PEs - -dates of such unknown -as he may need bronchoscopy hold Eliquis for now, but if not needed then resume mahogany #cognitive impairment - -per his mother his memory loss started particularly after one of his brain injuries from a fall -I was able to contact one of the medical directors from the SNF and they reported that earlier in October he was oriented to person & year but not the month or place -per his mother he is ambulatory? would need to verify that with the SNF (I attempted to call the SNF multiple times this evening to no avail) #DVT proph - -hold Eliquis in case urgent bronch is needed but resume mahogany otherwise -if Eliquis is on hold longer term then would bridge with lovenox Pt's mother Edwige Tate ([phone]) - who is 90yo - was updated and changed code status, brother at bedside also, brother endorses rajat has been declining over last few years and recognizes mother has difficult time accepting this Admission and Anticipated Discharge Date Admission Date: November 18, 2024 Subjective Poor historian. Extubated. Physical Exam Physical Exam: extubated, awake cardiac is regular lungs coarse bilateral breath sounds Results & Data Results & Data Vital Signs (Past 12 Hours) Vital Signs Temp Pulse Pulse Resp BP Pulse Ox Pulse Ox 11/20/24 18:18 37.9 C H 106 H 28 H 88 L 11/20/24 18:03 38.0 C H 103 H 21 98 11/20/24 18:00 143/96 H 11/20/24 18:00 143/96 H 11/20/24 17:54 38.0 C H 94 H 22 85 L 11/20/24 17:45 38.0 C H 102 H 19 96 11/20/24 17:33 38.0 C H 97 H 16 96 11/20/24 17:24 38.0 C H 96 H 26 H 95 11/20/24 17:09 38.0 C H 101 H 27 H 88 L 11/20/24 17:00 136/94 11/20/24 17:00 136/94 11/20/24 16:51 38.0 C H 75 20 97 11/20/24 16:45 38.0 C H 80 23 92 11/20/24 16:39 37.9 C H 77 26 H 94 11/20/24 16:18 38.1 C H 112 H 19 89 L 11/20/24 16:06 38.2 C H 101 H 25 H 96 11/20/24 16:00 71 18 97 11/20/24 15:45 38.1 C H 98 H 34 H 90 11/20/24 15:30 37.8 C H 73 23 100 11/20/24 15:21 38.1 C H 94 H 19 98 11/20/24 15:00 38.0 C H 76 20 99 11/20/24 15:00 138/92 11/20/24 14:51 38.1 C H 92 H 21 97 11/20/24 14:33 38.0 C H 100 H 18 97 11/20/24 14:30 37.3 C 11/20/24 14:00 142/94 H 11/20/24 14:00 142/94 H 11/20/24 14:00 142/94 H 11/20/24 14:00 38.0 C H 105 H 21 98 11/20/24 13:45 37.9 C H 92 H 24 98 11/20/24 13:30 37.8 C H 78 18 92 11/20/24 13:09 37.8 C H 101 H 22 95 11/20/24 13:00 147/99 H 11/20/24 12:45 157/108 H 11/20/24 12:45 157/108 H 11/20/24 12:39 37.7 C H 96 H 17 95 11/20/24 12:30 156/101 H 11/20/24 12:21 37.7 C H 91 H 16 95 11/20/24 12:15 149/93 H 11/20/24 12:15 149/93 H 11/20/24 12:09 37.8 C H 90 15 96 11/20/24 12:00 95 11/20/24 11:45 137/81 11/20/24 11:45 137/81 11/20/24 11:45 37.8 C H 87 14 98 11/20/24 11:33 37.8 C H 87 15 98 11/20/24 11:30 129/78 11/20/24 11:30 129/78 11/20/24 11:21 37.9 C H 92 H 19 99 11/20/24 11:15 37.9 C H 94 H 16 98 11/20/24 11:15 136/81 11/20/24 11:15 136/81 11/20/24 11:03 37.8 C H 97 H 19 98 11/20/24 11:00 139/87 11/20/24 11:00 139/87 05/01/25 10:57 37.9 C H 95 H 14 97 11/20/24 10:45 135/87 11/20/24 10:42 37.9 C H 92 H 15 98 11/20/24 10:36 38.0 C H 97 H 16 99 11/20/24 10:30 142/89 H 11/20/24 10:30 142/89 H 11/20/24 10:27 38.0 C H 106 H 23 94 11/20/24 10:24 38.0 C H 103 H 19 88 L 11/20/24 10:17 121/100 11/20/24 10:09 37.9 C H 104 H 22 97 11/20/24 10:00 37.8 C H 105 H 28 H 91 11/20/24 09:45 37.8 C H 90 20 97 11/20/24 09:45 145/89 H 11/20/24 09:45 145/89 H 11/20/24 09:31 152/111 H 11/20/24 09:31 152/111 H 11/20/24 09:20 98 H 14 96 11/20/24 09:15 160/108 H 11/20/24 09:12 37.4 C 112 H 19 87 L 11/20/24 09:03 37.4 C 82 17 98 11/20/24 09:00 145/90 H 11/20/24 08:57 37.3 C 84 18 96 11/20/24 08:45 147/87 H 11/20/24 08:45 147/87 H 11/20/24 08:39 37.3 C 81 12 100 11/20/24 08:31 130/82 11/20/24 08:31 130/82 11/20/24 08:24 37.2 C 87 15 96 11/20/24 08:15 135/77 11/20/24 08:15 135/77 11/20/24 08:15 37.2 C 86 17 94 11/20/24 08:00 124/72 11/20/24 08:00 124/72 11/20/24 08:00 124/72 11/20/24 08:00 37.3 C 80 18 97 11/20/24 08:00 11/20/24 07:54 37.3 C 81 18 96 11/20/24 07:50 11/20/24 07:45 101/63 11/20/24 07:42 37.3 C 85 18 92 11/20/24 07:30 106/63 11/20/24 07:21 37.3 C 89 31 H 92 11/20/24 07:20 66 18 96 11/20/24 07:15 100/66 11/20/24 07:15 100/66 11/20/24 07:15 37.2 C 67 13 96 11/20/24 07:00 37.2 C 68 18 98 11/20/24 07:00 126/75 11/20/24 07:00 126/75 11/20/24 06:48 67 11/20/24 06:45 108/71 11/20/24 06:45 108/71 11/20/24 06:45 108 O2 Del Method O2 Del Method O2 Flow Rate O2 Flow Rate FiO2 11/20/24 18:18 11/20/24 18:03 11/20/24 18:00 11/20/24 18:00 11/20/24 17:54 11/20/24 17:45 11/20/24 17:33 11/20/24 17:24 11/20/24 17:09 11/20/24 17:00 11/20/24 17:00 11/20/24 16:51 11/20/24 16:45 11/20/24 16:39 11/20/24 16:18 11/20/24 16:06 11/20/24 16:00 Oxymask 2 11/20/24 15:45 11/20/24 15:30 11/20/24 15:21 Oxymask 2 11/20/24 15:00 11/20/24 15:00 11/20/24 14:51 11/20/24 14:33 11/20/24 14:30 11/20/24 14:00 11/20/24 14:00 11/20/24 14:00 11/20/24 14:00 11/20/24 13:45 11/20/24 13:30 11/20/24 13:09 11/20/24 13:00 11/20/24 12:45 11/20/24 12:45 11/20/24 12:39 11/20/24 12:30 11/20/24 12:21 11/20/24 12:15 11/20/24 12:15 11/20/24 12:09 11/20/24 12:00 High Flow Nasal Cannula 2 11/20/24 11:45 11/20/24 11:45 11/20/24 11:45 11/20/24 11:33 11/20/24 11:30 11/20/24 11:30 11/20/24 11:21 11/20/24 11:15 11/20/24 11:15 11/20/24 11:15 11/20/24 11:03 11/20/24 11:00 11/20/24 11:00 11/20/24 10:57 11/20/24 10:45 11/20/24 10:42 11/20/24 10:36 11/20/24 10:30 11/20/24 10:30 11/20/24 10:27 11/20/24 10:24 11/20/24 10:17 11/20/24 10:09 11/20/24 10:00 11/20/24 09:45 11/20/24 09:45 11/20/24 09:45 11/20/24 09:31 11/20/24 09:31 11/20/24 09:20 50 11/20/24 09:15 11/20/24 09:12 11/20/24 09:03 11/20/24 09:00 11/20/24 08:57 11/20/24 08:45 11/20/24 08:45 11/20/24 08:39 11/20/24 08:31 11/20/24 08:31 11/20/24 08:24 11/20/24 08:15 11/20/24 08:15 11/20/24 08:15 11/20/24 08:00 11/20/24 08:00 11/20/24 08:00 11/20/24 08:00 11/20/24 08:00 11/20/24 07:54 11/20/24 07:50 Mechanical Vent 11/20/24 07:45 11/20/24 07:42 11/20/24 07:30 11/20/24 07:21 11/20/24 07:20 24 11/20/24 07:15 11/20/24 07:15 11/20/24 07:15 11/20/24 07:00 11/20/24 07:00 11/20/24 07:00 11/20/24 06:48 11/20/24 06:45 11/20/24 06:45 11/20/24 06:45 PG Care Time/CCT Total # of Minutes Spent Total Time Spent with Patient: Total time spent is greater than 50% in coordination of care (as documented) at patient's floor/unit and/or counseling patient: Coding Level of Care Code 25647 SUB INP/OBS CARE 3/50MIN Diagnoses Acute hypoxic respiratory failure J96.01 Sepsis A41.9; R65.20; J96.01 Acute respiratory failure type: with hypoxia Sepsis acute organ dysfunction status: with acute organ dysfunction Sepsis type: sepsis due to unspecified organism Severe sepsis acute organ dysfunction type: acute respiratory failure Severe sepsis shock status: unspecified Hypernatremia E87.0 History of traumatic brain injury Z87.820 HTN (hypertension) I10 Paroxysmal A-fib I48.0 Schizo affective schizophrenia F25.9 Time Spent (min) 50 (2) Sepsis Acute respiratory failure type: with hypoxia Sepsis acute organ dysfunction status: with acute organ dysfunction Sepsis type: sepsis due to unspecified organism Severe sepsis acute organ dysfunction type: acute respiratory failure Severe sepsis shock status: unspecified Qualified Code(s): A41.9 - Sepsis, unspecified organism; R65.20 - Severe sepsis without septic shock; J96.01 - Acute respiratory failure with hypoxia
--- NOTE | 2024-11-20 22:11 | Communication Note ---
Date of Service: November 20, 2024 Patient seen on evening rounds. Pleasant and conversant. Resting comfortably. On Oxymask saturating > 95%. Air movement diminished on L side but present in upper lobe. Weak cough. 2209: Notified by RN at 0 of increased work of breathing. Patient seen at bedside. He awakens to voice, appears to be in moderate respiratory distress. Febrile again which may be contributing. Oxygen saturation remains adequate, but RR is > 30/min, breaths are short and shallow. L side now has minimal air movement. STAT CXR is pending at this time. He is at high risk of requiring reintubation. If this is the case, will reach out to mother via telephone. Per brother, clinical status has declined over the past year with multiple episodes of pneumonia and admissions to the hospital. Prognosis is guarded. 2214: CXR reviewed. Appears to have developed RML infiltrate in the interim. JOVANY haziness present. He is occasionally coughing up small amounts of thick sputum with assistance. We will continue nebulizers and support pulmonary clearance with frequent suctioning and encouragement of deep breathing. HOB > 45. Will reach out to patient's mother's to update her on his current condition. Edwige Tate ([phone]) 2229: I had extensive discussion with patient's mother, Edwige, via telephone. She resides 4 hours away in [place]. We discussed Gumaro's clinical course and the possibility he may soon require mechanical ventilation. She tells me that in the event of respiratory failure and there is hope for recovery, she would like him to be mechanically ventilated. We discussed cardiac arrest. She tells me that in the event of cardiac arrest, we should allow him to pass peacefully and "leave it in God's hands". This means no CPR and no intubation in the event of cardiac arrest. This will be reflected in his chart as a change in code status to Intubation for respiratory failure only. DNR (No intubation or resuscitation) in the event of arrest. Coding Level of Care Code 81628 CRITICAL CARE EA ADD 30M Time Spent (min) 42
--- NOTE | 2024-11-21 02:04 | XRay Report ---
Exam(s): XR CXR 1 VIEW EXAM: XR Chest, 1 View CLINICAL HISTORY: Reason for exam: SOB. TECHNIQUE: Frontal view of the chest. COMPARISON: Prior chest x-ray from November 20, 2024 at 5:44 AM FINDINGS: Lungs: There is a patchy opacity in the right upper and lower lobe. There is pulmonary edema in the left lung. Low lung volumes limit evaluation of the lung bases. Pleural space: Unremarkable. No pneumothorax. Heart: Mild cardiomegaly. Mediastinum: Unremarkable. Normal mediastinal contour. Bones/joints: Advanced dextroscoliosis of the thoracic spine. Status post left shoulder arthroplasty. No acute fracture. IMPRESSION: Left upper and lower lobe infiltrates. Left pulmonary edema. Electronically signed by: Caro Ugalde MD 11/21/24 02:04 AM
[2024-11-21 04:47] LABS: Basophils # (auto) 0.04 K/uL (0.00-0.20); Basophils % (auto) 0.3 %; Eosinophils # (auto) 0.18 K/uL (0.00-0.50); Eosinophils % (auto) 1.5 %; Hematocrit (blood only) 32.8 % (42.0-52.0); Hemoglobin 10.6 g/dl (14.0-18.0); Immature Granulocytes # (auto) 0.09 K/uL (0.01-0.20); Immature Granulocytes % (auto) 0.8 %; Lymphocytes # (auto) 0.57 K/uL (1.20-3.40); Lymphocytes % (auto) 4.8 %; Mean Corpuscular Hemoglobin 29.7 pg (25.0-34.0); Mean Corpuscular Hgb Conc 32.3 g/dL (32.0-36.0); Mean Corpuscular Volume 91.9 fL (80.0-100.0); Mean Platelet Volume 9.8 fL (9.4-12.4); Monocytes # (auto) 0.57 K/uL (0.11-0.59); Monocytes % (auto) 4.8 %; Neutrophils # (auto) 10.54 K/uL (1.40-6.50); Neutrophils % (auto) 87.8 %; Platelet Count 175 K/uL (130-400); RDW Coefficient of Variation 13.2 % (11.5-14.5); RDW Standard Deviation 44.4 fL (36.4-46.3); Red Blood Count 3.57 M/uL (4.70-6.10); White Blood Count 11.99 K/ul (4.8-10.8)
[2024-11-21 05:29] LABS: BUN Creatinine Ratio 16.3 (10-20); Calcium 8.1 mg/dl (8.6-10.3); Magnesium 1.9 mg/dl (1.7-2.4); Phosphorus 4.2 mg/dl (2.5-4.9); Potassium 3.7 mmol/L (3.5-5.1)
[2024-11-21] MEDS: POTASSIUM CHLORIDE / WTR 10 MEQ/100 ML PLCT IV SCH (05:50)
[2024-11-21] MEDS: MAGNESIUM SULFATE / D5W 1 GM/100 ML BAG IV SCH (05:50)
--- NOTE | 2024-11-21 07:11 | Critical Care Progress Note ---
Date of Service November 21, 2024 Assessment & Plan (1) Hypoxic respiratory failure: (2) Required emergent intubation: (3) Collapse of left lung: (4) Viral illness: (5) Hypernatremia: (6) Shock circulatory: Plan Reason Critically Ill: 59 YOM presented with hypoxic respiratory failure and collapse of left lung secondary to mucous obstruction, required intubation and mechanical ventilation- post intubation and lavage with improvement in aeration of the left lung. To ICU for continued pulmonary support and management of secretions and expectoration. Neuro - Sedation for mechanical ventilation, Hx: Bipolar, intracranial bleeding, schizoaffective disorder, seizure disorder unspecified CAM ICU: [facility] - Continue with his Cogentin for his drug induced dyskinesias - Continue- Sertraline, Trileptal, risperidone - follow QTc while on fentanyl, daily ECGs Patient at baseline is nonverbal, he does not usually have any meaningful conversation with the family. He does recognize the family. Cardiac - Shock- circulatory ; Hx HTN -- S/p shock Multifactorial Combination of sepsis as well as sedation Random cortisol 18.75 -- History of PAF- currently NSR On Eliquis at home On bronchoscopy patient did have friable mucosa, on heparin drip Respiratory - Hypoxic respiratory failure requiring intubation, left lung collapse secondary to mucoid obstruction, Viral illness CT chest 11/18/2024 personally reviewed: Motion degraded study Groundglass opacities appreciated in the left upper lobe Collapse of the left lower lobe Small left-sided pleural effusion Mediastinal shift to the left Cardiomegaly Mild station 7 lymphadenopathy --Extubated 11/20/2024 Respiratory BioFire was positive for coronavirus Procalcitonin 0.33, nasal MRSA positive --Left lower lobe collapse S/p bronchoscopy 11/19/2024, mucous plugging was removed, significant erythema and friable mucosa with easy bleeding Continue with hypertonic saline nebulized, chest vest, inhaled bronchodilators --Multifocal pneumonia Continue with antibiotics Look at the ID section GI - Hx GERD -- Continue with PPI RENAL/LYTES - -- Hypernatremia --> resolved Monitor BUNs/creatinine Avoid nephrotoxic medication ENDO - No acute needs -- Continue with ICU hypoglycemia protocol 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 Plan: In/out: -2 L, urine output 4.7 L + 5 L since coming to the hospital Chest x-ray on personal review from today does not show any significant change compared to yesterday Patient has bouts of agitation and cough still. Unfortunately I do not think it is safe for him to swallow right now. Bedside swallow eval was not successful as per RN He does take medications for his bipolar disorder which are p.o. I will try to get psych involved to see if they have any medication which can be given IM. For the time being I will give him Ativan 1 mg every 6 hours as needed Metoprolol will be added for the blood pressure 5 mg every 6 as needed Potassium and magnesium being replaced Patient has bouts of hypoglycemia, will change half NS to D5 half NS at 75 mL an hour till he is n.p.o. Patient is still high risk for being reintubated Had discussion with patient's mother and brother bedside on 11/19/2024, current condition and prognosis was explained to the patient's family They do understand that given the baseline poor mental status it is difficult to extubate as they will always be high risk of intubation. Patient did not want anything aggressive in the past. Tracheostomy would not be a good option and they agree. Ok to reintubate in event of respiratory failure but NO CPR in event of cardiac arrest I have personally spent 38 minutes of critical care time in the direct management of this patient. This is a life/limb threatening event. This includes time spent evaluating patient, direct bedside care, chart review, placing orders, interpretation of diagnostic studies, discussion with consultants, patient, and family members, as well as other required patient management activities. This time is exclusive of all separately billable procedures, and teaching time and separate from and in addition to any other critical care service time. Please note the above document was generated using voice recognition software. It may contain grammatical, syntax or spelling errors. Admission and Anticipated Discharge Date Admission Date: November 18, 2024 Subjective Patient seen and examined at bedside. No acute distress Overnight patient did have bouts of coughing where he got hypoxic to the degree that even intubation was sought At the time of examination systolic blood pressure was in the 160s. He was few questions. He was oriented to self. Moving all extremities to command Denied any unusual headache. He was saturating 94-95% on 3 L oxy mask Review of Systems 2 Review of Systems: All systems reviewed & are unremarkable except as noted in Subjective Physical Exam 2 Physical Exam: Constitutional: No acute distress HEENT: PERRLA, right anterior frontal scar appreciated Respiratory system: Decreased air entry bilaterally, more decreased on the left lower side, no wheeze, no rhonchi, positive crackles bilateral lower lobes more on the left side CVS: S1-S2 positive, no murmurs or gallops Abdomen: Soft, nontender, nondistended, positive bowel sounds x4 Extremities: +2 pulses bilaterally radialis/ dorsalis pedis, no cyanosis, no edema Neuro: Awake alert oriented to self Psych: Bouts of restlessness G/U: Positive Bhakta Skin: no rashes, warm and dry Lymphatic: no cervical or axillary lymphadenopathy Results & Data Results & Data Vital Signs (Past 12 Hours) Vital Signs Temp Pulse Pulse Resp BP Pulse Ox O2 Del Method 11/21/24 05:30 38.0 C H 72 20 11/21/24 05:27 38.0 C H 69 23 11/21/24 05:00 38.1 C H 62 24 11/21/24 04:45 38.1 C H 64 25 H 11/21/24 04:36 38.1 C H 67 25 H 11/21/24 04:27 38.1 C H 75 24 11/21/24 04:00 155/96 H 11/21/24 04:00 37.9 C H 85 29 H 11/21/24 04:00 155/96 H 11/21/24 03:59 141/106 H 11/21/24 03:54 37.7 C H 62 22 11/21/24 03:33 37.9 C H 63 22 11/21/24 03:03 38.0 C H 66 22 11/21/24 03:00 144/102 H 11/21/24 03:00 144/102 H 11/21/24 02:36 37.9 C H 75 29 H 11/21/24 02:18 37.8 C H 85 18 11/21/24 02:03 37.7 C H 58 L 24 100 11/21/24 02:01 159/91 H 11/21/24 02:01 159/91 H 11/21/24 01:57 37.7 C H 63 24 100 11/21/24 01:51 37.7 C H 62 20 100 11/21/24 01:36 37.6 C H 66 18 100 11/21/24 01:09 37.6 C H 73 28 H 65 L 11/21/24 01:00 123/87 11/21/24 00:54 37.7 C H 64 21 100 11/21/24 00:45 37.8 C H 67 22 100 11/21/24 00:42 37.8 C H 62 21 99 11/21/24 00:24 37.8 C H 61 22 100 11/21/24 00:06 37.9 C H 81 21 99 11/21/24 00:02 138/87 11/21/24 00:00 87 11/20/24 23:51 37.9 C H 72 21 100 11/20/24 23:30 71 24 100 11/20/24 23:27 79 22 100 11/20/24 23:00 82 21 100 11/20/24 23:00 136/84 11/20/24 23:00 136/84 11/20/24 23:00 136/84 11/20/24 22:45 38.2 C H 91 H 21 98 11/20/24 22:30 38.3 C H 93 H 27 H 100 11/20/24 22:15 38.3 C H 99 H 28 H 97 11/20/24 22:00 122/94 11/20/24 22:00 122/94 11/20/24 21:57 35.6 C L 100 H 34 H 90 11/20/24 21:45 37.8 C H 94 H 21 99 11/20/24 21:33 37.8 C H 94 H 23 96 11/20/24 21:18 37.5 C 99 H 26 H 98 11/20/24 21:14 141/90 H 11/20/24 21:12 109 H 26 H 80 L 11/20/24 21:01 84/36 L 11/20/24 21:01 84/36 L 11/20/24 21:01 84/36 L 11/20/24 20:54 37.8 C H 105 H 27 H 91 11/20/24 20:48 37.8 C H 105 H 31 H 91 11/20/24 20:33 38.0 C H 108 H 50 H 90 11/20/24 20:07 146/106 H 11/20/24 20:02 87 30 H 93 Nasal Cannula 11/20/24 20:00 Nasal Cannula 11/20/24 20:00 38.0 C H 93 H 22 91 11/20/24 20:00 136/106 H 11/20/24 19:45 38.1 C H 90 26 H 88 L 11/20/24 19:15 38.1 C H 99 H 19 91 O2 Flow Rate 11/21/24 05:30 11/21/24 05:27 11/21/24 05:00 11/21/24 04:45 11/21/24 04:36 11/21/24 04:27 11/21/24 04:00 11/21/24 04:00 11/21/24 04:00 11/21/24 03:59 11/21/24 03:54 11/21/24 03:33 11/21/24 03:03 11/21/24 03:00 11/21/24 03:00 11/21/24 02:36 11/21/24 02:18 11/21/24 02:03 11/21/24 02:01 11/21/24 02:01 11/21/24 01:57 11/21/24 01:51 11/21/24 01:36 11/21/24 01:09 11/21/24 01:00 11/21/24 00:54 11/21/24 00:45 11/21/24 00:42 11/21/24 00:24 11/21/24 00:06 11/21/24 00:02 11/21/24 00:00 11/20/24 23:51 11/20/24 23:30 11/20/24 23:27 11/20/24 23:00 11/20/24 23:00 11/20/24 23:00 11/20/24 23:00 11/20/24 22:45 11/20/24 22:30 11/20/24 22:15 11/20/24 22:00 11/20/24 22:00 11/20/24 21:57 11/20/24 21:45 11/20/24 21:33 11/20/24 21:18 11/20/24 21:14 11/20/24 21:12 11/20/24 21:01 11/20/24 21:01 11/20/24 21:01 11/20/24 20:54 11/20/24 20:48 11/20/24 20:33 11/20/24 20:07 11/20/24 20:02 11/20/24 20:00 2 11/20/24 20:00 11/20/24 20:00 11/20/24 19:45 11/20/24 19:15 Laboratory Results 11/21/24 04:24 11/21/24 04:24 Coding Level of Care Code 92325 CRITICAL CARE 1ST 30-74M Diagnoses Hypoxic respiratory failure J96.91 Required emergent intubation Z98.890 Collapse of left lung J98.11 Viral illness B34.9 Hypernatremia E87.0 Shock circulatory R57.9
--- NOTE | 2024-11-21 07:34 | XRay Report ---
EXAM: XR chest 1V portable CLINICAL HISTORY: Follow-up. TECHNIQUE: X-ray image of the chest is obtained in AP portable projection. COMPARISON: CR 11/20/2024 FINDINGS: Pulmonary Parenchyma: Unchanged right middle and left upper small airspace opacities. Cardiomegaly, seen projecting over the left lower lung zone and left costophrenic angle. Clear right costophrenic angle. Heart and Mediastinum: Mild left mediastinal shifting. Cardiomegaly. No mediastinal widening or masses. No hilar or mediastinal lymphadenopathy. Bony Thorax: The bony thorax appears intact without fractures or deformities. Left humeral prosthesis. Soft Tissues: Soft tissues overlying the chest wall are unremarkable. IMPRESSION: 1. Removed ETT and NG tubes. 2. Unchanged right middle and left upper small airspace opacities. Clinical and lab correlation is advised. 3. Cardiomegaly, seen projecting over the left lower lung zone and left costophrenic angle. Stable. Electronically signed by Ranjan Maddox 11-21-2024 07:34 AM
[2024-11-21] MEDS: MULTI VIT W/MINERALS LIQUID 15 ML UDC NG SCH (08:43)
[2024-11-21] MEDS ORDERED: MULTI VIT W/MINERALS LIQUID 15 ML UDC NG SCH (09:00)
[2024-11-21] MEDS ORDERED: METOPROLOL TARTRATE 1 MG/ML VIAL IV PRN (09:51)
[2024-11-21] MEDS: D5W AND 1/2NSS 1,000 ML IV SCH ×2 (10:26→12:56)
[2024-11-21] MEDS: LORazepam 2 MG/1 ML VIAL IV PRN (10:26)
[2024-11-21] MEDS: DEXTROSE 50% 50 ML SYRINGE IV ONE (12:47)
[2024-11-21] MEDS: DEXTROSE 50% 50 ML SYRINGE IV PRN (12:53)
[2024-11-21] MEDS ORDERED: GLUCAGON FOR INJ 1 MG VIAL SQ PRN (13:00)
[2024-11-21] MEDS ORDERED: CARBOHYDRATES FOR HYPOGLYCEMIA PO PRN (13:00)
[2024-11-21] MEDS ORDERED: GLUCOSE 10 TAB/TUBE PO PRN (13:00)
[2024-11-21] MEDS ORDERED: GLUCOSE 40% GEL 15 GM TUBE PO PRN (13:00)
[2024-11-21 15:34] LABS: ANTI-Xa, UFH(UnfractionatedHep 0.15 IU/ml (0.3-0.7)
[2024-11-21] MEDS: KETOROLAC TROMETHAMINE 15 MG/ML VIAL IV PRN (16:05)
[2024-11-21] MEDS: HEPARIN SOD (PORCINE) 1000 UNIT/ML IV ONE (16:05)
[2024-11-21] MEDS: HALOPERIDOL LACTATE 5 MG/ML 1 ML VIAL IV STA (20:24)
[2024-11-21 21:56] LABS: ANTI-Xa, UFH(UnfractionatedHep 0.25 IU/ml (0.3-0.7)
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
--- NOTE | 2024-11-22 00:33 | Electrocardiogram Report ---
Test Reason : Blood Pressure : */* mmHG Vent. Rate : 71 BPM Atrial Rate : 71 BPM P-R Int : 298 ms QRS Dur : 72 ms QT Int : 408 ms P-R-T Axes : 21 -23 22 degrees QTcB Int : 443 ms Sinus rhythm with 1st degree A-V block T wave abnormality, consider anterior ischemia Abnormal ECG When compared with ECG of 20-Nov-2024 06:33, (unconfirmed) UT interval has increased T wave inversion now evident in Anterior leads Confirmed by Senthil Blue ([id number]) on 11/22/2024 12:33:01 AM Referred By: [facility] Confirmed By: Senthil Blue
[2024-11-22 06:06] LABS: BUN Creatinine Ratio 16.2 (10-20); Calcium 7.9 mg/dl (8.6-10.3); Creatinine Clr Calc Pharmacy 100.5 ml/min; Magnesium 2.1 mg/dl (1.7-2.4); Potassium 3.4 mmol/L (3.5-5.1)
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
[2024-11-22 07:59] LABS: ANTI-Xa, UFH(UnfractionatedHep 0.16 IU/ml (0.3-0.7)
[2024-11-22] MEDS: LORazepam 2 MG/1 ML VIAL IV STA (09:14)
[2024-11-22] MEDS: POTASSIUM CHLORIDE / WTR 10 MEQ/100 ML PLCT IV SCH (09:18)
[2024-11-22] MEDS: HEPARIN SOD (PORCINE) 1000 UNIT/ML IV ONE (10:42)
--- NOTE | 2024-11-22 12:22 | Pharmacy Report ---
Pharmacy PK ABX Note - Date of Service November 22, 2024 - Assessment and Plan Assessment 11/22: * SCr improving, 0.74 mg/dL this AM. Given this and AUC/KYLE in the low 400s and patient's continuous fevers, will empirically increase vancomycin dose today. Check random level tomorrow. 11/20: * MRSA growing from sputum from vent and Left lower lobe bronch. Plan to treat with minimum 7 days of vancomycin. Zosyn to continue for 5 days. * Random level 11.2 this morning indicates therapeutic dosing, will continue with current dose * Extubated this AM, febrile today, normal WBC 11/19: * 59 year old who presented with hypoxic respiratory failure and collapse of left lung secondary to mucous obstruction, s/p intubation and mechanical ventilation. Ordered empiric vancomycin and pip/tazo IV. * BC and sputum culture pending. Positive MRSA nasal swab, respiratory PCR panel detected Coronavirus (OC43). h/o MRSA per provider notes. Plan Vancomycin * Empirically increase vanc dose to 1250 mg IV every 12 hours * Regimen is predicted to achieve target AUC/KYLE of 400-600 mg/L.hr * Random level tomorrow AM Pharmacy will continue to follow and will adjust dose/frequency as necessary. Thank you. Pharmacy has transitioned to AUC monitoring for vancomycin. AUC/KYLE is the preferred PK/PD target and is associated with decreased risk of nephrotoxicity compared to traditional trough targets.
[2024-11-22 14:28] LABS: ANTI-Xa, UFH(UnfractionatedHep 0.26 IU/ml (0.3-0.7)
--- NOTE | 2024-11-22 14:55 | Electrocardiogram Report ---
Test Reason : Blood Pressure : */* mmHG Vent. Rate : 67 BPM Atrial Rate : 67 BPM P-R Int : 200 ms QRS Dur : 78 ms QT Int : 412 ms P-R-T Axes : 41 39 45 degrees QTcB Int : 435 ms Normal sinus rhythm Left atrial enlargement Borderline ECG When compared with ECG of 19-Nov-2024 22:34, (unconfirmed) Sinus rhythm has replaced Atrial flutter Confirmed by Rosalie You ([email or web address]) on 11/22/2024 2:55:33 PM Referred By: [facility] Confirmed By: Rosalie You
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
[2024-11-22] MEDS: VANCOMYCIN HCL 1,250 MG in SODIUM CHLORIDE 0.9% 250 ML IV SCH (16:09)
[2024-11-22] MEDS: HALOPERIDOL LACTATE 5 MG/ML 1 ML VIAL IV PRN (17:01)
--- NOTE | 2024-11-22 19:03 | Hospitalist Progress Note ---
Date of Service November 22, 2024 Assessment & Plan (1) Acute hypoxic respiratory failure: (2) Sepsis: (3) Hypernatremia: (4) History of traumatic brain injury: (5) HTN (hypertension): (6) Paroxysmal A-fib: (7) Schizo affective schizophrenia: Plan 59yo male with history of schizoaffective disorder, at least 2 head injuries with resulting ICH (one of which required surgery per his mother), recurrent pneumonia (4-5 episodes last 2 years per his mother), PAF, prior PEs, bipolar disorder, major depression, anemia, HTN, GERD, drug induced dyskinesia, and cognitive impairment (which started after one of his traumatic head injuries) presents from [facility] with worsening respiratory distress that progressed to respiratory failure and required intubation, Tested + for non-COVID coronavirus infection on BioFire panel. Tested + for MRSA on [employer] swab. Sepsis from a pulmonary source, concern for non Covid coronavirus and bacterial pneumonia #acute hypoxic respiratory failure - intubation and ventilation zosyn/vancomycin (latter due to MRSA + status) - will extend for 10 days due to continued fevers. -will downgrade -bronchodilators, pulm toilet, etc. -appreciate galvanometer assembler assistance - extubated on 11/20 will downgrade - patient tachypnic, hypoxic and with fever, will remain in the ICU. -continue zosyn and vanco -now with leukocytosis #pneumonia - with left lung collapse concern for gram negative and MRSA pneumonoia but cannot rule out impact of non covid coronavirus infection -initially CT chest showed LLL pneumonia -likely with JOVANY involvement and some on the right as well -cont zosyn/vancomycin -bronchoscopy had been considered, -scoliosis and generalized debilitation also contributing to poor lung function and recurrent pneumonia -as above #h/o PAF on Eliquis - -as patient may need bronchoscopy hold Eliquis for now -he is not on AV yonas agents chronically #hypernatremia - -would provide hypotonic fluid with serial BMP #schizoaffective disorder - -holding oral meds due to pending speech eval, will resume once cleared by speech -on ativan, haldol prn holding sertraline (used to prevent SSRI withdrawal -hold risperidone, paliperidone but resume as soon as possible -hold oxcarbazepine -hold benztropine BID #drug induced tardive dyskinesia - -cont benztropine BID #h/o previous PEs - -dates of such unknown -as he may need bronchoscopy hold Eliquis for now, but if not needed then resume mahogany #cognitive impairment - -per his mother his memory loss started particularly after one of his brain injuries from a fall -I was able to contact one of the medical directors from the SNF and they reported that earlier in October he was oriented to person & year but not the month or place -per his mother he is ambulatory? would need to verify that with the SNF (I attempted to call the SNF multiple times this evening to no avail) #DVT proph - -hold Eliquis in case urgent bronch is needed but resume mahogany otherwise -if Eliquis is on hold longer term then would bridge with lovenox Pt's mother Edwige Tate ([phone]) - who is 90yo - was updated and changed code status, brother at bedside also, brother endorses rajat has been declining over last few years and recognizes mother has difficult time accepting this d/w Financial Reporting Specialist Admission and Anticipated Discharge Date Admission Date: November 18, 2024 Subjective Patient is a poor historian. Physical Exam Physical Exam: extubated, awake cardiac is regular lungs coarse bilateral breath sounds Results & Data Results & Data Vital Signs (Past 12 Hours) Vital Signs Temp Pulse Pulse Resp BP Pulse Ox Pulse Ox 11/22/24 17:58 77 11/22/24 17:44 11/22/24 17:09 73 14 96 11/22/24 17:00 158/96 H 11/22/24 16:57 81 28 H 93 11/22/24 16:15 81 33 H 89 L 11/22/24 16:00 151/101 H 11/22/24 15:39 99 H 27 H 92 11/22/24 15:03 70 33 H 96 11/22/24 15:00 141/102 H 11/22/24 14:51 98 H 47 H 100 11/22/24 14:30 71 20 94 11/22/24 14:18 80 48 H 95 11/22/24 14:00 145/107 H 11/22/24 13:57 79 39 H 91 11/22/24 13:37 74 11/22/24 13:31 127/89 11/22/24 13:31 127/89 11/22/24 13:21 67 31 H 94 11/22/24 13:06 102 H 35 H 79 L 11/22/24 12:03 90 27 H 89 L 11/22/24 12:00 158/97 H 11/22/24 12:00 158/97 H 11/22/24 12:00 91 11/22/24 11:45 38.2 C H 82 40 H 93 11/22/24 11:12 38.2 C H 93 H 28 H 94 11/22/24 11:01 146/113 H 11/22/24 11:01 146/113 H 11/22/24 10:42 38.2 C H 72 31 H 91 11/22/24 10:01 153/115 H 11/22/24 10:01 153/115 H 11/22/24 10:01 153/115 H 11/22/24 10:01 153/115 H 11/22/24 10:00 38.2 C H 104 H 23 88 L 11/22/24 09:00 38.0 C H 105 H 34 H 93 11/22/24 08:06 38.0 C H 88 25 H 97 11/22/24 08:00 11/22/24 07:55 91 H 93 11/22/24 07:09 38.0 C H 86 35 H 94 Pulse Ox O2 Del Method O2 Del Method O2 Del Method O2 Flow Rate O2 Flow Rate O2 Flow Rate 11/22/24 17:58 11/22/24 17:44 Nasal Cannula 2 11/22/24 17:09 11/22/24 17:00 11/22/24 16:57 11/22/24 16:15 11/22/24 16:00 11/22/24 15:39 11/22/24 15:03 11/22/24 15:00 11/22/24 14:51 11/22/24 14:30 Nasal Cannula 2 11/22/24 14:18 11/22/24 14:00 11/22/24 13:57 11/22/24 13:37 11/22/24 13:31 11/22/24 13:31 11/22/24 13:21 11/22/24 13:06 11/22/24 12:03 11/22/24 12:00 11/22/24 12:00 11/22/24 12:00 95 Nasal Cannula High Flow Nasal Cannula 2 2 11/22/24 11:45 11/22/24 11:12 11/22/24 11:01 11/22/24 11:01 11/22/24 10:42 11/22/24 10:01 11/22/24 10:01 11/22/24 10:01 11/22/24 10:01 11/22/24 10:00 11/22/24 09:00 11/22/24 08:06 11/22/24 08:00 Nasal Cannula 2 11/22/24 07:55 Nasal Cannula 2 11/22/24 07:09 Nasal Cannula 2 PG Care Time/CCT Total # of Minutes Spent Total Time Spent with Patient: Total time spent is greater than 50% in coordination of care (as documented) at patient's floor/unit and/or counseling patient: Coding Level of Care Code 03514 SUB INP/OBS CARE 3/50MIN Diagnoses Acute hypoxic respiratory failure J96.01 Sepsis A41.9; R65.20; J96.01 Acute respiratory failure type: with hypoxia Sepsis acute organ dysfunction status: with acute organ dysfunction Sepsis type: sepsis due to unspecified organism Severe sepsis acute organ dysfunction type: acute respiratory failure Severe sepsis shock status: unspecified Hypernatremia E87.0 History of traumatic brain injury Z87.820 HTN (hypertension) I10 Paroxysmal A-fib I48.0 Schizo affective schizophrenia F25.9 (2) Sepsis Acute respiratory failure type: with hypoxia Sepsis acute organ dysfunction status: with acute organ dysfunction Sepsis type: sepsis due to unspecified organism Severe sepsis acute organ dysfunction type: acute respiratory failure Severe sepsis shock status: unspecified Qualified Code(s): A41.9 - Sepsis, unspecified organism; R65.20 - Severe sepsis without septic shock; J96.01 - Acute respiratory failure with hypoxia
[2024-11-23] MEDS: VANCOMYCIN LEVEL ONE (04:06)
[2024-11-23 04:19] LABS: Creatinine Clr Calc Pharmacy 89.6 ml/min; Magnesium 1.8 mg/dl (1.7-2.4); Potassium 3.5 mmol/L (3.5-5.1)
[2024-11-23 04:25] LABS: ANTI-Xa, UFH(UnfractionatedHep 0.24 IU/ml (0.3-0.7)
--- NOTE | 2024-11-23 08:17 | XRay Report ---
HISTORY: Respiratory failure. TECHNIQUE: Portable AP radiograph of the chest. COMPARISON: Chest radiograph dated 11/21/2024. FINDINGS: Patchy multifocal bilateral airspace opacity is similar. No pneumothorax. Small effusions. Mild cardiomegaly. Pulmonary vascular congestion. Left shoulder arthroplasty. Severe thoracic dextroscoliosis. IMPRESSION: * Similar multifocal bilateral airspace opacity concerning for multifocal pneumonia. * Cardiomegaly with vascular congestion and small pleural effusions, which could represent CHF. Electronically signed by Vin Mcfadden 11-23-2024 08:17 AM
[2024-11-23] MEDS ORDERED: MENTHOL-ZINC OXIDE 360 APPLN/120 GM TUBE EXT PRN (09:02)
[2024-11-23] MEDS ORDERED: MICONAZOLE NITRATE POWDER 85 GM EXT PRN (09:02)
--- NOTE | 2024-11-23 09:50 | Pharmacy Report ---
Pharmacy PK ABX Note - Date of Service November 23, 2024 - Assessment and Plan Assessment 11/23: * Today is last day of Zosyn. Vancomycin will be completed at the end of the day on 11/25/24. * Vanc level therapeutic this AM. SCr stable. 11/22: * SCr improving, 0.74 mg/dL this AM. Given this and AUC/KYLE in the low 400s and patient's continuous fevers, will empirically increase vancomycin dose today. Check random level tomorrow. 11/20: * MRSA growing from sputum from vent and Left lower lobe bronch. Plan to treat with minimum 7 days of vancomycin. Zosyn to continue for 5 days. * Random level 11.2 this morning indicates therapeutic dosing, will continue with current dose * Extubated this AM, febrile today, normal WBC 11/19: * 59 year old who presented with hypoxic respiratory failure and collapse of left lung secondary to mucous obstruction, s/p intubation and mechanical ventilation. Ordered empiric vancomycin and pip/tazo IV. * BC and sputum culture pending. Positive MRSA nasal swab, respiratory PCR panel detected Coronavirus (OC43). h/o MRSA per provider notes. Plan Vancomycin * Current regimen: 1250 mg IV every 12 hours * Random level obtained 11/23/24 resulted as 10.5 mcg/mL. This is predicted to achieve target AUC/KYLE of 400-600 mg/L.hr * Predicted AUC at steady state: 530 mg/L.hr * Continue 1250 mg IV every 12 hours * No more levels will be ordered as therapy will end on 11/25/24 (unless patient clinically worsens or SCr changes significantly) Zosyn * 4.5 g IV every 8 hours Pharmacy will continue to follow and will adjust dose/frequency as necessary. Thank you. Pharmacy has transitioned to AUC monitoring for vancomycin. AUC/KYLE is the preferred PK/PD target and is associated with decreased risk of nephrotoxicity compared to traditional trough targets.
[2024-11-23 11:31] LABS: ANTI-Xa, UFH(UnfractionatedHep 0.24 IU/ml (0.3-0.7)
--- NOTE | 2024-11-23 12:55 | Hospitalist Progress Note ---
Date of Service November 23, 2024 Assessment & Plan (1) Acute hypoxic respiratory failure: (2) Sepsis: (3) Hypernatremia: (4) History of traumatic brain injury: (5) HTN (hypertension): (6) Paroxysmal A-fib: (7) Schizo affective schizophrenia: Plan 59yo male with history of schizoaffective disorder, at least 2 head injuries with resulting ICH (one of which required surgery per his mother), recurrent pneumonia (4-5 episodes last 2 years per his mother), PAF, prior PEs, bipolar disorder, major depression, anemia, HTN, GERD, drug induced dyskinesia, and cognitive impairment (which started after one of his traumatic head injuries) presents from [facility] with worsening respiratory distress that progressed to respiratory failure and required intubation, Tested + for non-COVID coronavirus infection on BioFire panel. 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 Sepsis from a pulmonary source, concern for non Covid coronavirus and bacterial pneumonia #acute hypoxic respiratory failure -s/p intubation and ventilation zosyn/vancomycin (latter due to MRSA + status) -bronchodilators, pulm toilet, etc. -appreciate environmental emergencies planner assistance - extubated on 11/20 #pneumonia - with left lung collapse concern for gram negative and MRSA pneumonoia but cannot rule out impact of non covid coronavirus infection -initially CT chest showed LLL pneumonia -likely with JOVANY involvement and some on the right as well -cont zosyn/vancomycin -bronchoscopy had been considered, -scoliosis and generalized debilitation also contributing to poor lung function and recurrent pneumonia #h/o PAF on Eliquis - - Eliquis is currently on hold -he is not on AV yonas agents chronically #hypernatremia - - Corrected. Serial labs #schizoaffective disorder - - Oral medications are on hold until cleared by speech therapy - Currently on ativan, haldol prn holding sertraline (used to prevent SSRI withdrawal -hold risperidone, paliperidone but resume as soon as possible -hold oxcarbazepine -hold benztropine BID #drug induced tardive dyskinesia - -cont benztropine BID #h/o previous PEs - -dates of such unknown -as he may need bronchoscopy hold Eliquis for now, but if not needed then resume #cognitive impairment - -per his mother his memory loss started particularly after one of his brain injuries from a fall -per his mother he is ambulatory #DVT proph - -hold Eliquis in case urgent bronch is needed but resume otherwise -if Eliquis is on hold longer term then [facility] Admission and Anticipated Discharge Date Admission Date: November 18, 2024 Subjective The patient is awake but he has cognitive impairment due to traumatic brain injury. He remains on intravenous Zosyn and vancomycin for the MRSA left basilar pneumonia. He also remains on a heparin drip. Chest x-ray done today, November 23, looks better. Review of Systems 2 Review of Systems: The patient has traumatic brain injury and is unable to answer any questions regarding review of systems Physical Exam 2 Physical Exam: General-awake. Nonverbal due to history of TBI. No fever HEENT-head atraumatic and normocephalic, pupils equal and reactive to light, extraocular muscles intact Neck-no lymphadenopathy or thyromegaly, trachea midline Chest-scattered bilateral rhonchi. No rales, no wheeze wheezing Cardiac-regular rate and rhythm, normal S1 and S2 Abdomen-normal bowel sounds, no hepatosplenomegaly Extremities-no cyanosis, clubbing, or edema Neuro-previous history of traumatic brain injury. Both hands are in mitts. Able to move all extremities randomly no apparent focal motor deficits Psych-agitated at the time of lab draw Results & Data Results & Data Vital Signs (Past 12 Hours) Vital Signs Temp Pulse Resp BP Pulse Ox Pulse Ox O2 Del Method 11/23/24 12:00 94 11/23/24 10:38 37.0 C 73 20 144/99 H 94 Oxymask 11/23/24 10:24 Oxymask 11/23/24 07:23 68 22 95 Oxymask 11/23/24 07:01 36.9 C 82 22 128/91 94 Oxymask 11/23/24 03:17 36.7 C 77 34 H 133/95 91 Oxymask O2 Del Method O2 Flow Rate O2 Flow Rate 11/23/24 12:00 Oxymask 2 11/23/24 10:38 4 11/23/24 10:24 2 11/23/24 07:23 4 11/23/24 07:01 4 11/23/24 03:17 4 Laboratory Results 11/21/24 04:24 11/23/24 03:38 PG Care Time/CCT Total # of Minutes Spent Total Time Spent with Patient: Total time spent is greater than 50% in coordination of care (as documented) at patient's floor/unit and/or counseling patient: Coding Level of Care Code 84197 SUB INP/OBS CARE 2/35MIN Diagnoses Acute hypoxic respiratory failure J96.01 Sepsis A41.9; R65.20; J96.01 Acute respiratory failure type: with hypoxia Sepsis acute organ dysfunction status: with acute organ dysfunction Sepsis type: sepsis due to unspecified organism Severe sepsis acute organ dysfunction type: acute respiratory failure Severe sepsis shock status: unspecified Hypernatremia E87.0 History of traumatic brain injury Z87.820 HTN (hypertension) I10 Paroxysmal A-fib I48.0 Schizo affective schizophrenia F25.9 (2) Sepsis Acute respiratory failure type: with hypoxia Sepsis acute organ dysfunction status: with acute organ dysfunction Sepsis type: sepsis due to unspecified organism Severe sepsis acute organ dysfunction type: acute respiratory failure Severe sepsis shock status: unspecified Qualified Code(s): A41.9 - Sepsis, unspecified organism; R65.20 - Severe sepsis without septic shock; J96.01 - Acute respiratory failure with hypoxia
--- NOTE | 2024-11-23 13:26 | Electrocardiogram Report ---
Test Reason : Blood Pressure : */* mmHG Vent. Rate : 51 BPM Atrial Rate : 375 BPM P-R Int : * ms QRS Dur : 80 ms QT Int : 458 ms P-R-T Axes : * 64 59 degrees QTcB Int : 422 ms Atrial flutter with variable A-V block Abnormal ECG When compared with ECG of 21-Nov-2024 05:12, Atrial flutter has replaced Sinus rhythm Questionable change in QRS axis Confirmed by Rosalie You (Zahira) on 11/23/2024 1:26:51 PM Referred By: [facility] Confirmed By: Rosalie You
[2024-11-23 18:13] LABS: ANTI-Xa, UFH(UnfractionatedHep 0.27 IU/ml (0.3-0.7)
[2024-11-24 01:01] LABS: ANTI-Xa, UFH(UnfractionatedHep 0.27 IU/ml (0.3-0.7)
[2024-11-24 07:17] LABS: Basophils # (auto) 0.01 K/uL (0.00-0.20); Basophils % (auto) 0.1 %; Eosinophils # (auto) 0.06 K/uL (0.00-0.50); Eosinophils % (auto) 0.7 %; Hematocrit (blood only) 29.5 % (42.0-52.0); Hemoglobin 9.6 g/dl (14.0-18.0); Immature Granulocytes # (auto) 0.06 K/uL (0.01-0.20); Immature Granulocytes % (auto) 0.7 %; Lymphocytes # (auto) 0.51 K/uL (1.20-3.40); Mean Corpuscular Hemoglobin 29.4 pg (25.0-34.0); Mean Corpuscular Hgb Conc 32.5 g/dL (32.0-36.0); Mean Corpuscular Volume 90.2 fL (80.0-100.0); Mean Platelet Volume 9.8 fL (9.4-12.4); Monocytes # (auto) 0.88 K/uL (0.11-0.59); Monocytes % (auto) 10.4 %; Neutrophils # (auto) 6.94 K/uL (1.40-6.50); Neutrophils % (auto) 82.1 %; Platelet Count 174 K/uL (130-400); RDW Coefficient of Variation 12.9 % (11.5-14.5); RDW Standard Deviation 42.5 fL (36.4-46.3); Red Blood Count 3.27 M/uL (4.70-6.10); White Blood Count 8.46 K/ul (4.8-10.8)
[2024-11-24 07:38] LABS: BUN Creatinine Ratio 8.4 (10-20); Calcium 8.2 mg/dl (8.6-10.3); Creatinine Clr Calc Pharmacy 78.3 ml/min; Magnesium 1.7 mg/dl (1.7-2.4); Potassium 3.2 mmol/L (3.5-5.1)
[2024-11-24 07:47] LABS: ANTI-Xa, UFH(UnfractionatedHep 0.29 IU/ml (0.3-0.7)
--- NOTE | 2024-11-24 09:03 | Electrocardiogram Report ---
Test Reason : Blood Pressure : */* mmHG Vent. Rate : 86 BPM Atrial Rate : 92 BPM P-R Int : * ms QRS Dur : 72 ms QT Int : 408 ms P-R-T Axes : 76 67 17 degrees QTcB Int : 488 ms Sinus rhythm with 2nd degree A-V block (Mobitz I) QTcB >= 480 msec Abnormal ECG When compared with ECG of 23-Nov-2024 06:10, Sinus rhythm has replaced Atrial flutter Vent. rate has increased by 35 bpm QT has lengthened Confirmed by Rosalie You (Zahira) on 11/24/2024 9:02:34 AM Referred By: [facility] Confirmed By: Rosalie You
[2024-11-24 15:23] LABS: ANTI-Xa, UFH(UnfractionatedHep 0.27 IU/ml (0.3-0.7)
--- NOTE | 2024-11-24 18:46 | Hospitalist Progress Note ---
Date of Service November 24, 2024 Assessment & Plan (1) Acute hypoxic respiratory failure: (2) Sepsis: (3) Hypernatremia: (4) History of traumatic brain injury: (5) HTN (hypertension): (6) Paroxysmal A-fib: (7) Schizo affective schizophrenia: Plan 59yo male with history of schizoaffective disorder, at least 2 head injuries with resulting ICH (one of which required surgery per his mother), recurrent pneumonia (4-5 episodes last 2 years per his mother), PAF, prior PEs, bipolar disorder, major depression, anemia, HTN, GERD, drug induced dyskinesia, and cognitive impairment (which started after one of his traumatic head injuries) presents from [facility] with worsening respiratory distress that progressed to respiratory failure and required intubation, Tested + for non-COVID coronavirus infection on BioFire panel. 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 Sepsis from a pulmonary source, concern for non Covid coronavirus and bacterial pneumonia #acute hypoxic respiratory failure -s/p intubation and ventilation zosyn/vancomycin (latter due to MRSA + status) -bronchodilators, pulm toilet, etc. -appreciate health care facility administrator assistance - extubated on 11/20 -on oxymask 3.5 liters #pneumonia - with left lung collapse concern for gram negative and MRSA pneumonoia but cannot rule out impact of non covid coronavirus infection -initially CT chest showed LLL pneumonia -likely with JOVANY involvement and some on the right as well -cont zosyn/vancomycin extended for 10 days -bronchoscopy had been considered, -scoliosis and generalized debilitation also contributing to poor lung function and recurrent pneumonia #h/o PAF on Eliquis - - Eliquis is currently on hold -he is not on AV yonas agents chronically #hypernatremia - - Corrected. Serial labs #schizoaffective disorder - - Oral medications are on hold until cleared by speech therapy - Currently on ativan, haldol prn holding sertraline (used to prevent SSRI withdrawal -hold risperidone, paliperidone but resume as soon as possible -hold oxcarbazepine -hold benztropine BID #drug induced tardive dyskinesia - -cont benztropine BID #h/o previous PEs - -dates of such unknown -as he may need bronchoscopy hold Eliquis for now, but if not needed then resume #cognitive impairment - -per his mother his memory loss started particularly after one of his brain injuries from a fall -per his mother he is ambulatory #DVT proph - -hold Eliquis in case urgent bronch is needed but resume otherwise -if Eliquis is on hold longer term then would bridge with lovenox Admission and Anticipated Discharge Date Admission Date: November 18, 2024 Subjective Patient is a poor historian. One to one in the room states patient had a few bites of food. Physical Exam Physical Exam: awake cardiac is regular lungs coarse bilateral breath sounds Results & Data Results & Data Vital Signs (Past 12 Hours) Vital Signs Temp Pulse Pulse Resp BP Pulse Ox Pulse Ox 11/24/24 16:33 36.5 C 74 28 H 136/98 96 11/24/24 15:12 66 20 100 11/24/24 14:58 65 11/24/24 13:27 37.4 C 73 32 H 157/97 H 97 11/24/24 12:00 93 11/24/24 07:31 37.6 C H 69 27 H 137/98 97 11/24/24 07:18 100 H 18 97 O2 Del Method O2 Del Method O2 Flow Rate O2 Flow Rate 11/24/24 16:33 Nasal Cannula 2.5 11/24/24 15:12 Oxymask 2 11/24/24 14:58 11/24/24 13:27 Oxymask 4 11/24/24 12:00 Oxymask 2 11/24/24 07:31 Oxymask 4 11/24/24 07:18 Nasal Cannula 2 PG Care Time/CCT Total # of Minutes Spent Total Time Spent with Patient: Total time spent is greater than 50% in coordination of care (as documented) at patient's floor/unit and/or counseling patient: Coding Level of Care Code 51648 SUB INP/OBS CARE 3/50MIN Diagnoses Acute hypoxic respiratory failure J96.01 Sepsis A41.9; R65.20; J96.01 Acute respiratory failure type: with hypoxia Sepsis acute organ dysfunction status: with acute organ dysfunction Sepsis type: sepsis due to unspecified organism Severe sepsis acute organ dysfunction type: acute respiratory failure Severe sepsis shock status: unspecified Hypernatremia E87.0 History of traumatic brain injury Z87.820 HTN (hypertension) I10 Paroxysmal A-fib I48.0 Schizo affective schizophrenia F25.9 (2) Sepsis Acute respiratory failure type: with hypoxia Sepsis acute organ dysfunction status: with acute organ dysfunction Sepsis type: sepsis due to unspecified organism Severe sepsis acute organ dysfunction type: acute respiratory failure Severe sepsis shock status: unspecified Qualified Code(s): A41.9 - Sepsis, unspecified organism; R65.20 - Severe sepsis without septic shock; J96.01 - Acute respiratory failure with hypoxia
[2024-11-24 22:39] LABS: ANTI-Xa, UFH(UnfractionatedHep 0.28 IU/ml (0.3-0.7)
[2024-11-25] MEDS: VANCOMYCIN LEVEL ONE (03:50)
[2024-11-25 04:30] LABS: Basophils # (auto) 0.03 K/uL (0.00-0.20); Basophils % (auto) 0.4 %; Eosinophils # (auto) 0.07 K/uL (0.00-0.50); Hematocrit (blood only) 27.2 % (42.0-52.0); Hemoglobin 8.9 g/dl (14.0-18.0); Immature Granulocytes # (auto) 0.06 K/uL (0.01-0.20); Immature Granulocytes % (auto) 0.8 %; Lymphocytes # (auto) 0.66 K/uL (1.20-3.40); Mean Corpuscular Hemoglobin 29.7 pg (25.0-34.0); Mean Corpuscular Hgb Conc 32.7 g/dL (32.0-36.0); Mean Corpuscular Volume 90.7 fL (80.0-100.0); Mean Platelet Volume 10.1 fL (9.4-12.4); Monocytes % (auto) 10.9 %; Neutrophils # (auto) 5.74 K/uL (1.40-6.50); Neutrophils % (auto) 77.9 %; Platelet Count 192 K/uL (130-400); RDW Standard Deviation 43.1 fL (36.4-46.3); White Blood Count 7.36 K/ul (4.8-10.8)
[2024-11-25 04:44] LABS: BUN Creatinine Ratio 8.1 (10-20); Calcium 8.2 mg/dl (8.6-10.3); Creatinine Clr Calc Pharmacy 60.5 ml/min; Magnesium 1.7 mg/dl (1.7-2.4); Potassium 3.1 mmol/L (3.5-5.1)
[2024-11-25 04:55] LABS: ANTI-Xa, UFH(UnfractionatedHep 0.32 IU/ml (0.3-0.7)
--- NOTE | 2024-11-25 07:48 | Pharmacy Report ---
Pharmacy PK ABX Note - Date of Service November 25, 2024 - Assessment and Plan Assessment 11/24: * Patient completing a 7 day course today. However, with confirmed MRSA in bronch and ongoing low-grade fever, may extend course * SCr with continued trend up, more notable today. Associated with a supratherapeutic AUC based on today's level of 19.3 mcg/mL * Will hold ongoing scheduled vancomycin. Will give small supplemental dose tonight to help ensure therapy doesn't become subtherapeutic given confirmed MRSA in bronch. Will dose via level for now 11/23: * Today is last day of Zosyn. Vancomycin will be completed at the end of the day on 11/25/24. * Vanc level therapeutic this AM. SCr stable. 11/22: * SCr improving, 0.74 mg/dL this AM. Given this and AUC/KYLE in the low 400s and patient's continuous fevers, will empirically increase vancomycin dose today. Check random level tomorrow. 11/20: * MRSA growing from sputum from vent and Left lower lobe bronch. Plan to treat with minimum 7 days of vancomycin. Zosyn to continue for 5 days. * Random level 11.2 this morning indicates therapeutic dosing, will continue with current dose * Extubated this AM, febrile today, normal WBC 11/19: * 59 year old who presented with hypoxic respiratory failure and collapse of left lung secondary to mucous obstruction, s/p intubation and mechanical ventilation. Ordered empiric vancomycin and pip/tazo IV. * BC and sputum culture pending. Positive MRSA nasal swab, respiratory PCR panel detected Coronavirus (OC43). h/o MRSA per provider notes. Plan Vancomycin * Stop scheduled vancomycin * 750 mg IV x1 tonight * Random level with AM labs tomorrow * Ongoing vancomycin dependent on levels and renal function trend Zosyn * 4.5 g IV every 8 hours Pharmacy will continue to follow and will adjust dose/frequency as necessary. Thank you. Pharmacy has transitioned to AUC monitoring for vancomycin. AUC/KYLE is the preferred PK/PD target and is associated with decreased risk of nephrotoxicity compared to traditional trough targets.
[2024-11-25] MEDS: risperiDONE 1 MG TABLET PO SCH (13:47)
[2024-11-25] MEDS: VANCOMYCIN 750 MG in SODIUM CHLORIDE 0.9% 250 ML IV ONE (22:18)
[2024-11-25] MEDS: PALIPERIDONE 3 MG TABCR PO SCH (22:25)
--- NOTE | 2024-11-25 23:08 | Hospitalist Progress Note ---
Date of Service November 25, 2024 Assessment & Plan (1) Acute hypoxic respiratory failure: (2) Sepsis: (3) Hypernatremia: (4) History of traumatic brain injury: (5) HTN (hypertension): (6) Paroxysmal A-fib: (7) Schizo affective schizophrenia: Plan 59yo male with history of schizoaffective disorder, at least 2 head injuries with resulting ICH (one of which required surgery per his mother), recurrent pneumonia (4-5 episodes last 2 years per his mother), PAF, prior PEs, bipolar disorder, major depression, anemia, HTN, GERD, drug induced dyskinesia, and cognitive impairment (which started after one of his traumatic head injuries) presents from [facility] with worsening respiratory distress that progressed to respiratory failure and required intubation, Tested + for non-COVID coronavirus infection on BioFire panel. Tested + for MRSA on LASTING ROOM MACHINE OPERATOR swab. Sepsis from a pulmonary source, concern for non Covid coronavirus and bacterial pneumonia #acute hypoxic respiratory failure -s/p intubation and ventilation zosyn/vancomycin (latter due to MRSA + status) -bronchodilators, pulm toilet, etc. -appreciate business continuity global director assistance - extubated on 11/20 -on oxymask 2 liters on 11/25; now on a diet. #pneumonia - with left lung collapse concern for gram negative and MRSA pneumonoia but cannot rule out impact of non covid coronavirus infection -initially CT chest showed LLL pneumonia -likely with JOVANY involvement and some on the right as well -cont zosyn/vancomycin extended for 10 days -bronchoscopy had been considered, -scoliosis and generalized debilitation also contributing to poor lung function and recurrent pneumonia #h/o PAF on Eliquis - - Eliquis is currently on hold -he is not on AV yonas agents chronically #hypernatremia - - Corrected. Serial labs #schizoaffective disorder - - Oral medications are on hold until cleared by speech therapy - Currently on haldol prn resumed sertraline (used to prevent SSRI withdrawal -resumed risperidone, paliperidone -hold oxcarbazepine -hold benztropine BID -mentation appears improved. #drug induced tardive dyskinesia - -hold benztropine BID #h/o previous PEs - -dates of such unknown -as he may need bronchoscopy hold Eliquis for now, but if not needed then resume #cognitive impairment - -per his mother his memory loss started particularly after one of his brain injuries from a fall -per his mother he is ambulatory #DVT proph - -hold Eliquis in case urgent bronch is needed but resume otherwise -if Eliquis is on hold longer term then would bridge with lovenox Admission and Anticipated Discharge Date Admission Date: November 18, 2024 Subjective Patient is awake but refusing exam. Physical Exam Physical Exam: awake cardiac is regular lungs coarse bilateral breath sounds Results & Data Results & Data Vital Signs (Past 12 Hours) Vital Signs Temp Pulse Pulse Pulse Resp BP BP 11/25/24 22:52 37.5 C 60 23 121/79 11/25/24 19:53 37.0 C 77 24 144/86 H 11/25/24 19:47 88 34 H 11/25/24 15:21 72 11/25/24 15:07 37.0 C 86 21 140/101 H 11/25/24 14:53 70 18 11/25/24 12:00 11/25/24 11:16 36.9 C 59 L 20 135/78 Pulse Ox Pulse Ox O2 Del Method O2 Del Method O2 Flow Rate O2 Flow Rate 11/25/24 22:52 96 Nasal Cannula 11/25/24 19:53 94 Nasal Cannula 11/25/24 19:47 97 Nasal Cannula 2 11/25/24 15:21 11/25/24 15:07 92 Nasal Cannula 2 11/25/24 14:53 92 Nasal Cannula 2 11/25/24 12:00 97 Oxymask 2 11/25/24 11:16 98 Oxymask 3.5 PG Care Time/CCT Total # of Minutes Spent Total Time Spent with Patient: Total time spent is greater than 50% in coordination of care (as documented) at patient's floor/unit and/or counseling patient: Coding Level of Care Code 41960 SUB INP/OBS CARE 3/50MIN Diagnoses Acute hypoxic respiratory failure J96.01 Sepsis A41.9; R65.20; J96.01 Acute respiratory failure type: with hypoxia Sepsis acute organ dysfunction status: with acute organ dysfunction Sepsis type: sepsis due to unspecified organism Severe sepsis acute organ dysfunction type: acute respiratory failure Severe sepsis shock status: unspecified Hypernatremia E87.0 History of traumatic brain injury Z87.820 HTN (hypertension) I10 Paroxysmal A-fib I48.0 Schizo affective schizophrenia F25.9 (2) Sepsis Acute respiratory failure type: with hypoxia Sepsis acute organ dysfunction status: with acute organ dysfunction Sepsis type: sepsis due to unspecified organism Severe sepsis acute organ dysfunction type: acute respiratory failure Severe sepsis shock status: unspecified Qualified Code(s): A41.9 - Sepsis, unspecified organism; R65.20 - Severe sepsis without septic shock; J96.01 - Acute respiratory failure with hypoxia
[2024-11-26 06:14] LABS: Hematocrit (blood only) 26.3 % (42.0-52.0); Hemoglobin 8.5 g/dl (14.0-18.0); Mean Corpuscular Hemoglobin 29.6 pg (25.0-34.0); Mean Corpuscular Hgb Conc 32.3 g/dL (32.0-36.0); Mean Corpuscular Volume 91.6 fL (80.0-100.0); Mean Platelet Volume 10.3 fL (9.4-12.4); Platelet Count 219 K/uL (130-400); RDW Coefficient of Variation 13.2 % (11.5-14.5); RDW Standard Deviation 43.9 fL (36.4-46.3); Red Blood Count 2.87 M/uL (4.70-6.10); White Blood Count 6.89 K/ul (4.8-10.8)
[2024-11-26 06:40] LABS: Basophils # (auto) 0.02 K/uL (0.00-0.20); Basophils % (auto) 0.3 %; Eosinophils # (auto) 0.11 K/uL (0.00-0.50); Eosinophils % (auto) 1.6 %; Immature Granulocytes # (auto) 0.04 K/uL (0.01-0.20); Immature Granulocytes % (auto) 0.6 %; Lymphocytes % (auto) 10.2 %; Monocytes # (auto) 0.73 K/uL (0.11-0.59); Monocytes % (auto) 10.6 %; Neutrophils # (auto) 5.29 K/uL (1.40-6.50); Neutrophils % (auto) 76.7 %; Polychromasia 1+
[2024-11-26 07:08] LABS: BUN Creatinine Ratio 13.2 (10-20); Calcium 8.2 mg/dl (8.6-10.3); Creatinine Clr Calc Pharmacy 60.8 ml/min; Potassium 2.8 mmol/L (3.5-5.1)
[2024-11-26] MEDS: POTASSIUM CHLORIDE / WTR 10 MEQ/100 ML PLCT IV SCH (09:22)
[2024-11-26] MEDS: VANCOMYCIN 750 MG in SODIUM CHLORIDE 0.9% 250 ML IV SCH (09:22)
[2024-11-26] MEDS: POTASSIUM CHLORIDE PWD 20 MEQ PACK PO SCH (09:24)
--- NOTE | 2024-11-26 10:36 | Pharmacy Report ---
Pharmacy PK ABX Note - Date of Service November 26, 2024 - Assessment and Plan Assessment 11/25: * SCr remains elevated from baseline today, but stable as compared to yesterday. * Random level 20.7 mcg/mL this AM - OK to resume vancomycin shortly after * Will schedule vancomycin at lower dose and re-check early level 11/24: * Patient completing a 7 day course today. However, with confirmed MRSA in bronch and ongoing low-grade fever, may extend course * SCr with continued trend up, more notable today. Associated with a supratherapeutic AUC based on today's level of 19.3 mcg/mL * Will hold ongoing scheduled vancomycin. Will give small supplemental dose tonight to help ensure therapy doesn't become subtherapeutic given confirmed MRSA in bronch. Will dose via level for now 11/23: * Today is last day of Zosyn. Vancomycin will be completed at the end of the day on 11/25/24. * Vanc level therapeutic this AM. SCr stable. 11/22: * SCr improving, 0.74 mg/dL this AM. Given this and AUC/KYLE in the low 400s and patient's continuous fevers, will empirically increase vancomycin dose today. Check random level tomorrow. 11/20: * MRSA growing from sputum from vent and Left lower lobe bronch. Plan to treat with minimum 7 days of vancomycin. Zosyn to continue for 5 days. * Random level 11.2 this morning indicates therapeutic dosing, will continue with current dose * Extubated this AM, febrile today, normal WBC 11/19: * 59 year old who presented with hypoxic respiratory failure and collapse of l eft lung secondary to mucous obstruction, s/p intubation and mechanical ventilation. Ordered empiric vancomycin and pip/tazo IV. * BC and sputum culture pending. Positive MRSA nasal swab, respiratory PCR panel detected Coronavirus (OC43). h/o MRSA per provider notes. Plan Vancomycin * 750 mg IV q12 * Random level with AM labs tomorrow * Ongoing vancomycin dependent on levels and renal function trend Zosyn * 4.5 g IV every 8 hours Pharmacy will continue to follow and will adjust dose/frequency as necessary. Thank you. Pharmacy has transitioned to AUC monitoring for vancomycin. AUC/KYLE is the preferred PK/PD target and is associated with decreased risk of nephrotoxicity compared to traditional trough targets.
--- NOTE | 2024-11-26 22:51 | Hospitalist Progress Note ---
Date of Service November 26, 2024 Assessment & Plan (1) Acute hypoxic respiratory failure: (2) Sepsis: (3) Hypernatremia: (4) History of traumatic brain injury: (5) HTN (hypertension): (6) Paroxysmal A-fib: (7) Schizo affective schizophrenia: Plan 59yo male with history of schizoaffective disorder, at least 2 head injuries with resulting ICH (one of which required surgery per his mother), recurrent pneumonia (4-5 episodes last 2 years per his mother), PAF, prior PEs, bipolar disorder, major depression, anemia, HTN, GERD, drug induced dyskinesia, and cognitive impairment (which started after one of his traumatic head injuries) presents from [facility] with worsening respiratory distress that progressed to respiratory failure and required intubation, Tested + for non-COVID coronavirus infection on BioFire panel. Tested + for MRSA on FINISH MACHINE TENDER swab. Sepsis from a pulmonary source, concern for non Covid coronavirus and bacterial pneumonia #acute hypoxic respiratory failure -s/p intubation and ventilation zosyn/vancomycin (latter due to MRSA + status) -bronchodilators, pulm toilet, etc. -appreciate carbon brush maker assistance - extubated on 11/20 -on oxymask 2 liters on 11/25; now on a diet. #pneumonia - with left lung collapse concern for gram negative and MRSA pneumonoia but cannot rule out impact of non covid coronavirus infection -initially CT chest showed LLL pneumonia -likely with JOVANY involvement and some on the right as well -cont zosyn/vancomycin extended for 10 days -Finally afebrile -bronchoscopy had been considered, -scoliosis and generalized debilitation also contributing to poor lung function and recurrent pneumonia #h/o PAF on Eliquis - - Eliquis is currently on hold -he is not on AV yonas agents chronically #hypernatremia - - Corrected. Serial labs #schizoaffective disorder - - Oral medications are on hold until cleared by speech therapy - Currently on haldol prn resumed sertraline (used to prevent SSRI withdrawal -resumed risperidone, paliperidone -hold oxcarbazepine -hold benztropine BID -mentation appears improved. -will try to limit benzo. -Patient remains confused. #drug induced tardive dyskinesia - -hold benztropine BID #h/o previous PEs - -dates of such unknown -as he may need bronchoscopy hold Eliquis for now, but if not needed then resume #cognitive impairment - -per his mother his memory loss started particularly after one of his brain injuries from a fall -per his mother he is ambulatory #DVT proph - -hold Eliquis in case urgent bronch is needed but resume otherwise -if Eliquis is on hold longer term then would bridge with lovenox Admission and Anticipated Discharge Date Admission Date: November 18, 2024 Subjective Patient is confused and combative. Physical Exam Physical Exam: awake cardiac is regular lungs coarse bilateral breath sounds Results & Data Results & Data Vital Signs (Past 12 Hours) Vital Signs Temp Pulse Resp BP Pulse Ox Pulse Ox O2 Del Method 11/26/24 20:41 36.8 C 84 26 H 150/84 H 96 Nasal Cannula 11/26/24 20:09 79 24 93 Nasal Cannula 11/26/24 19:56 76 20 93 Nasal Cannula 11/26/24 15:43 98 H 19 98 Nasal Cannula 11/26/24 12:00 99 11/26/24 11:20 36.6 C 65 18 162/93 H 97 Nasal Cannula O2 Del Method O2 Flow Rate O2 Flow Rate 11/26/24 20:41 11/26/24 20:09 2 11/26/24 19:56 2 11/26/24 15:43 2 11/26/24 12:00 Nasal Cannula 2 11/26/24 11:20 2.0 PG Care Time/CCT Total # of Minutes Spent Total Time Spent with Patient: Total time spent is greater than 50% in coordination of care (as documented) at patient's floor/unit and/or counseling patient: Coding Level of Care Code 80645 SUB INP/OBS CARE 3/50MIN Diagnoses Acute hypoxic respiratory failure J96.01 Sepsis A41.9; R65.20; J96.01 Acute respiratory failure type: with hypoxia Sepsis acute organ dysfunction status: with acute organ dysfunction Sepsis type: sepsis due to unspecified organism Severe sepsis acute organ dysfunction type: acute respiratory failure Severe sepsis shock status: unspecified Hypernatremia E87.0 History of traumatic brain injury Z87.820 HTN (hypertension) I10 Paroxysmal A-fib I48.0 Schizo affective schizophrenia F25.9 (2) Sepsis Acute respiratory failure type: with hypoxia Sepsis acute organ dysfunction status: with acute organ dysfunction Sepsis type: sepsis due to unspecified organism Severe sepsis acute organ dysfunction type: acute respiratory failure Severe sepsis shock status: unspecified Qualified Code(s): A41.9 - Sepsis, unspecified organism; R65.20 - Severe sepsis without septic shock; J96.01 - Acute respiratory failure with hypoxia
[2024-11-27 06:28] LABS: Creatinine Clr Calc Pharmacy 60.5 ml/min
--- NOTE | 2024-11-27 07:24 | Pharmacy Report ---
Pharmacy PK ABX Note - Date of Service November 27, 2024 - Assessment and Plan Assessment 11/26: * SCr remains elevated from baseline today, but stable as compared to the last two days * Random level 16.7 mcg/mL this AM - associated with therapeutic AUC of 469 * Patient will complete 10 days of therapy tomorrow. Duration may be affected by persistent fever although no fever noted 11/26 11/25: * SCr remains elevated from baseline today, but stable as compared to yesterday. * Random level 20.7 mcg/mL this AM - OK to resume vancomycin shortly after * Will schedule vancomycin at lower dose and re-check early level 11/24: * Patient completing a 7 day course today. However, with confirmed MRSA in bronch and ongoing low-grade fever, may extend course * SCr with continued trend up, more notable today. Associated with a supratherapeutic AUC based on today's level of 19.3 mcg/mL * Will hold ongoing scheduled vancomycin. Will give small supplemental dose tonight to help ensure therapy doesn't become subtherapeutic given confirmed MRSA in bronch. Will dose via level for now 11/23: * Today is last day of Zosyn. Vancomycin will be completed at the end of the day on 11/25/24. * Vanc level therapeutic this AM. SCr stable. 11/22: * SCr improving, 0.74 mg/dL this AM. Given this and AUC/KYLE in the low 400s and patient's continuous fevers, will empirically increase vancomycin dose today. Check random level tomorrow. 11/20: * MRSA growing from sputum from vent and Left lower lobe bronch. Plan to treat with minimum 7 days of vancomycin. Zosyn to continue for 5 days. * Random level 11.2 this morning indicates therapeutic dosing, will continue with current dose * Extubated this AM, febrile today, normal WBC 11/19: * 59 year old who presented with hypoxic respiratory failure and collapse of left lung secondary to mucous obstruction, s/p intubation and mechanical ventilation. Ordered empiric vancomycin and pip/tazo IV. * BC and sputum culture pending. Positive MRSA nasal swab, respiratory PCR panel detected Coronavirus (OC43). h/o MRSA per provider notes. Plan Vancomycin * Continue 750 mg IV q12 * Random level with AM labs tomorrow Zosyn * 4.5 g IV every 8 hours Pharmacy will continue to follow and will adjust dose/frequency as necessary. Thank you. Pharmacy has transitioned to AUC monitoring for vancomycin. AUC/KYLE is the preferred PK/PD target and is associated with decreased risk of nephrotoxicity compared to traditional trough targets.
[2024-11-27] MEDS: VANCOMYCIN LEVEL ONE (09:25)
[2024-11-27] MEDS: POTASSIUM CHLORIDE / WTR 10 MEQ/100 ML PLCT IV SCH (10:17)
--- NOTE | 2024-11-27 17:28 | Hospitalist Progress Note ---
Date of Service November 27, 2024 Assessment & Plan (1) Acute hypoxic respiratory failure: (2) Sepsis: (3) Hypernatremia: (4) History of traumatic brain injury: (5) HTN (hypertension): (6) Paroxysmal A-fib: (7) Schizo affective schizophrenia: Plan 59 years old right-sided male with PMH of DNR/intubation only for respiratory failure, NOT [facility] ([place], [place]), schizoaffective disorder, at least 2 head injuries with resulting ICH (one of which required surgery per his mother), recurrent pneumonia (4-5 episodes last 2 years per his mother), PAF, prior PEs, bipolar disorder, major depression, anemia, HTN, GERD, drug induced dyskinesia, and cognitive impairment (which started after one of his traumatic head injuries) presents from [facility] with worsening respiratory distress that progressed to r espiratory failure and required intubation, Tested + for non-COVID coronavirus infection on BioFire panel. Tested + for MRSA on VICE PRESIDENT PHARMACY swab. Sepsis from a pulmonary source, concern for non-Covid coronavirus and bacterial- MRSA pneumonia. Patient was subsequently admitted to the inpatient hospitalist service @ [facility] on 11/18/2024 with the following diagnoses: #acute hypoxic respiratory failure -s/p intubation and ventilation zosyn/vancomycin (latter due to MRSA + status) -bronchodilators, pulm toilet, etc. -appreciate corporate legal manager assistance - extubated on 11/20 -on oxymask 2 liters on 11/25/2024; now on a diet. #pneumonia - with left lung collapse concern for gram negative and MRSA pneumonia but cannot rule out impact of non-COVID coronavirus infection -initially CT chest showed LLL pneumonia -likely with JOVANY involvement and some on the right as well -cont zosyn/vancomycin extended for 10 days -Finally afebrile -bronchoscopy had been considered, -scoliosis and generalized debilitation also contributing to poor lung function and recurrent pneumonia #h/o PAF on Eliquis - - Eliquis is currently on hold -he is not on AV yonas agents chronically #hypernatremia - - RESOLVED with admission Na 150 mmol/L (11/18/2024, 12:50 pm) decreasing to 143 mmol/L (11/19/2024, 4:51 am) and remaining normal at 144 mmol/L (11/26/2024, 5:23 am). #schizoaffective disorder - - Oral medications are on hold until cleared by speech therapy - Currently on haldol prn resumed sertraline (used to prevent SSRI withdrawal - Resumed risperidone, paliperidone - Hold oxcarbazepine - Hold benztropine BID - Mentation appears improved. - Will try to limit benzo. - Patient remains confused. #drug induced tardive dyskinesia - -hold benztropine BID #h/o previous PEs - -dates of such unknown -as he may need bronchoscopy hold Eliquis for now, but if not needed then resume #cognitive impairment - -per his mother his memory loss started particularly after one of his brain injuries from a fall -per his mother he is ambulatory #DVT proph - -hold Eliquis in case urgent bronch is needed but resume otherwise -if Eliquis is on hold longer term then would bridge with lovenox Of note, I spoke today, 11/27/2024, 5:46pm to 6:08pm, with the patient's 90 years old mother, Ms. Alia Tate ( ), and she lives in [place], [place], and can only drive locally, and not from [place] to [place], [place], due to her advanced age of 90 years. She would like very much to see her son, the patient, on a daily basis, and hence, requested that patient be transferred from [facility] ([place], [place]) to [facility] ([place], [place]), which is 8 miles away from Ms. Alia Tate ( ). Subsequently, I called [facility] ([place], [place]) to request patient transfer from [facility] ([place], [place]) to [facility] ([place], [place]) on 11/27/2024, 6:13pm. Admission and Anticipated Discharge Date Admission Date: November 18, 2024 Subjective Patient remains wide awake with eyes open, but not following commands or animate objects (e.g., no conjugate tracking), and remains confused and non-verbal with mouth wide open, not closing. Review of Systems Constitutional: Unavailable as patient remains non-verbal. Physical Exam Constitutional: General: Wide awake and alert. Non-verbal. Patient does not follow commands or animate objects (e.g., no conjugate tracking), and remains confused and non-verbal with mouth wide open, not closing. Intubated 11/18/2024; extubated 11/20/2024. Still appears dyspnic on 11/27/2024. HEENT: Normocephalic, atraumatic. No nystagmus, gaze paresis, anisocoria, miosis, mydriasis, hyphema, scleral injection, conjunctivitis, or pterygium. No otorrhea or rhinorrhea. No pharyngeal erythema, edema, or discharge. Neck: Supple, no stridor, bruit, goiter, or hepato-jugular reflux. Jugular venous pressure is estimated to be 3 cm above the sternal angle of Angelo, which in turn, is 5 cm above the level of the right atrium; with j ugular venous pressure estimated to be 8 cm, then, there is no jugular venous distention on 11/27/2024. Lymphatics: No cervical (anterior/posterior), supraclavicular, infraclavicular, axillary, epitrochlear, or inguinal adenopathy. Chest: Symmetric rise and fall with respirations. Non-tender to palpation. Lungs: Clear to auscultation and percussion. Heart: Regular rate and rhythm. S1 and S2 noted. No S3 or S4 summation gallop. No tripartite friction rub. Grade II/ early systolic murmur @ LLSB without radiation to the carotids, axilla, or back, and which remains invariant in regards to the respiratory cycle. Abdomen: Soft, generalized tenderness, non-distended. No rebound, guarding, Roberson's sign, or organomegaly. Bowel sounds auscultated in all 4 quadrants. Drain in situ on right. Extremities: No clubbing, cyanosis, or edema. 2+ pedal pulses bilaterally. Skin: No decubitus ulcer, exanthem, or enanthem. Genito-urinary: No urethral discharge. No phelps catheter. Purewick with 50 mL of sondra/langford sediment. Neurology: No tremors, tics, or myoclonus. Psychiatry: Unknown. Results & Data Results & Data Vital Signs (Past 12 Hours) Vital Signs Temp Pulse Resp BP Pulse Ox Pulse Ox O2 Del Method 11/27/24 15:19 63 18 96 Nasal Cannula 11/27/24 15:08 36.7 C 80 20 143/88 H 95 Nasal Cannula 11/27/24 12:00 96 11/27/24 11:25 36.7 C 77 21 153/87 H 94 Nasal Cannula 11/27/24 07:56 37.0 C 82 21 165/112 H 94 Nasal Cannula 11/27/24 07:11 64 20 96 Nasal Cannula 11/27/24 07:00 Nasal Cannula O2 Del Method O2 Flow Rate O2 Flow Rate 11/27/24 15:19 2 11/27/24 15:08 2.0 11/27/24 12:00 Nasal Cannula 2 11/27/24 11:25 2.0 11/27/24 07:56 2.0 11/27/24 07:11 3 11/27/24 07:00 2 Laboratory Results K 4.0 mmol/L (11/20/2024, 4:00 am). K 3.7 mmol/L (11/21/2024, 4:24 am). K 3.4 mmol/L (11/22/2024, 4:33 am). K 3.5 mmol/L (11/23/2024, 3:38 am). K 3.2 mmol/L (11/24/2024, 6:58 am). K 3.1 mmol/L (11/25/2024, 3:56 am). K 2.8 mmol/L (11/26/2024, 5:23 am). k 3.7 mmol/L (11/27/2024, 8:25 am). PG Care Time/CCT Total # of Minutes Spent Total Time Spent with Patient: Total time spent is greater than 50% in coordination of care (as documented) at patient's floor/unit and/or counseling patient: Coding Level of Care Code 85745 SUB INP/OBS CARE 2/35MIN Diagnoses Acute hypoxic respiratory failure J96.01 Sepsis A41.9; R65.20; J96.01 Acute respiratory failure type: with hypoxia Sepsis acute organ dysfunction status: with acute organ dysfunction Sepsis type: sepsis due to unspecified organism Severe sepsis acute organ dysfunction type: acute respiratory failure Severe sepsis shock status: unspecified Hypernatremia E87.0 History of traumatic brain injury Z87.820 HTN (hypertension) I10 Paroxysmal A-fib I48.0 Schizo affective schizophrenia F25.9 (2) Sepsis Acute respiratory failure type: with hypoxia Sepsis acute organ dysfunction status: with acute organ dysfunction Sepsis type: sepsis due to unspecified organism Severe sepsis acute organ dysfunction type: acute respiratory failure Severe sepsis shock status: unspecified Qualified Code(s): A41.9 - Sepsis, unspecified organism; R65.20 - Severe sepsis without septic shock; J96.01 - Acute respiratory failure with hypoxia
[2024-11-28 07:49] LABS: Creatinine Clr Calc Pharmacy 59.1 ml/min
--- NOTE | 2024-11-28 14:04 | Discharge Summary ---
Discharge Summary Date of Service November 28, 2024 Principal Dx & Hospital Course #1 = Principal Diagnosis (1) Acute hypoxic respiratory failure: (2) Sepsis: (3) Hypernatremia: (4) History of traumatic brain injury: (5) HTN (hypertension): (6) Paroxysmal A-fib: (7) Schizo affective schizophrenia: Plan 59 years old right-sided male with PMH of DNR/intubation only for respiratory failure, NOT for cardiac arrest @ [facility] ([place]), schizoaffective disorder, at least 2 head injuries with resulting ICH (one of which required surgery per his 90 years old mother and POA, Ms. Alia Tate ( )), recurrent pneumonia (4-5 episodes last 2 years per his mother), PAF, prior pulmonary emboli, bipolar disorder, major depression, anemia, HTN, GERD, drug-induced dyskinesia, and cognitive impairment (which started after one of his traumatic head injuries), who pressented to [facility] ER from [facility] ([place]) on 11/18/2024 with worsening respiratory distress that progressed to acute respiratory failure and required intubation on admission date 11/18/2024, followed by extubation on 11/20/2024. Of note, patient tested + for non-COVID coronavirus infection on [employer] panel, and + for MRSA on nasopharyngeal swab. Patient was subsequently admitted to the inpatient hospitalist service @ [facility] on 11/18/2024 with the following diagnoses: 1. Acute hypoxic respiratory failure due to acute non-COVID PNA and acute MRSA PNA. 2. Sepsis due to acute non-COVID PNA and acute MRSA PNA. The following medical issues were addressed while the patient remained in [facility] from admission date 11/18/2024 through discharge date 11/28/2024: 1. Acute hypoxic respiratory failure due to acute non-COVID PNA and acute MRSA PNA. NOT RESOLVING as patient still requires 3.5 liters/minute O2 via nasal cannula with mouth hanging wide open and patient appearing lethargic, obtunded, and non-verbal. Patient received empiric zosyn/vancomycin (latter due to MRSA + status), bronchodilators, pulmonary toilet, formal Critical Care/Pulmonology Service evaluations, and still patient did not improve at all. Hence, I spoke with the patient's 90 years old mother and POA, Ms. Alia Tate ( )), and she requested that all medical interventions cease and that patient be discharged now on 11/28/2024, back to [facility] ([place]) under DNR/DNI/comfort measures only with morphine elixir 20mg/5mL, 20mg sublingual q4 prn shortness of breath, cough, wheeze, agitation, anxiety, panic. Hence, I complied with Ms. Tate's request. 2. Sepsis due to acute non-COVID PNA and acute MRSA PNA. -Admission CT chest (11/18/2024, 2:08pm) showed LLL infiltrate/consolidation. -likely with JOVANY involvement and some on the right as well; of note, scoliosis and generalized debilitation also contributing to poor lung function and recurrent pneumonia. -patient received empiric zosyn/vancomycin extended for 10 days; patient will not continue empiric antibiotics on hospital discharge back to [facility] [place] ([place]) under DNR/DNI/comfort measures only with morphine elixir 20mg/5mL, 20mg sublingual q4 prn shortness of breath, cough, wheeze, agitation, anxiety, panic, as requested by the patient's 90 years old mother and POA, Ms. Alia Tate ( )) on 11/28/2024. #h/o PAF on Eliquis - - Eliquis was held while patient remained in [facility], and will not resume on hospital discharge back to [facility] ([place]) under DNR/DNI/comfort measures only with morphine elixir 20mg/5mL, 20mg sublingual q4 prn shortness of breath, cough, wheeze, agitation, anxiety, panic, as requested by the patient's 90 years old mother and POA, Ms. Alia Tate ( )) on 11/28/2024. #hypernatremia - - RESOLVED with admission Na 150 mmol/L (11/18/2024, 12:50 pm) decreasing to 143 mmol/L (11/19/2024, 4:51 am) and remaining normal at 144 mmol/L (11/26/2024, 5:23 am). #schizoaffective disorder - - Oral medications were held while patient remained in [facility]; instead, patient was maintained on haldol 5mg IV q8 prn agitation and lorazepam 1mg IV q4 prn anxiety - Held oxcarbazepine / benztropine BID - Patient remains confused, lethargic, obtunded, non-verbal with mouth hanging wide open on discharge date 11/28/2024; hence, patient will not continue/resume his home-scheduled sertraline, risperidone, paliperidone as patient is discharged back to [facility] [place] ([place]) under DNR/DNI/comfort measures only with morphine elixir 20mg/5mL, 20mg sublingual q4 prn shortness of breath, cough, wheeze, agitation, anxiety, panic, as requested by the patient's 90 years old mother and POA, Ramya Alia Tate ( )) on 11/28/2024. #drug induced tardive dyskinesia - -Held benztropine BID #h/o previous pulmonary emboli - -dates of such unknown #cognitive impairment - -per his mother, patient's memory loss started particularly after one of his brain injuries from a fall -per his mother, patient was ambulatory prior to admission date 11/18/2024; subsequently, patient remains bedbound, including discharge date 11/28/2024. #DVT proph - -Held Eliquis in case bronchoscopy was warranted while patient remained in [facility] from admission 11/18/2024 through discharge date 11/28/2024. Bronchoscopy was not performed; however, patient will not resume his home-scheduled Eliquis 5mg PO bid as patient is discharged back to [facility] [place] ([place]) under DNR/DNI/comfort measures only with morphine elixir 20mg/5mL, 20mg sublingual q4 prn shortness of breath, cough, wheeze, agitation, anxiety, panic, as requested by the patient's 90 years old mother and POA, Ms. Alia Tate ( )) on 11/28/2024. Admission HPI Per Admitting Provider 59yo male with history of schizoaffective disorder, at least 2 head injuries with resulting ICH (one of which required surgery per his mother?), recurrent pneumonia, PAF, prior PEs, bipolar disorder, major depression, anemia, HTN, GERD, drug induced dyskinesia, and cognitive impairment (which started after one of his traumatic head injuries) presents from [facility] with worsening respiratory distress that began sometime last evening. Very little information is available from the SNF but by report his dyspnea & increased work of breathing were so severe today that he was not able to talk. EMS was summoned to [facility] and he was immediately placed on CPAP. Upon arrival to [facility] the patient was severely tachypneic despite the CPAP and switched to BIPAP. Hour-long duoneb was provided. Chest imaging showed LLL pneumonia/collapse along with copious mucous plugging. He was given zosyn & IV vancomycin. By report his work of breathing improved modestly. During my ER assessment the patient had severe increased work of breathing with tachypnea (RR 30s/40s), retractions, and accessory muscle use. He was unable to provide any meaningful history. Attempts for him to write on paper were unsuccessful. He was able to tell me that he was in pain but could not localize it. To that point it was presumed the patient was a DNI as his POLST form from the [facility] stated the following - in the event of cardiac arrest he would want full resuscitation; however, if not in cardiac arrest, the POLST indicated he would only want limited interventions (which would exclude intubation/mech ventilation). We ultimately were able to locate a call or contact centre team leader for Mr Tate. That person was Edwige Tate, his mother. Phone # - [phone]. I called Ms Tate, discussed what was going on medically, and explained to her that he was in severe respiratory distress due to LLL pneumonia, mucous plugging, etc. Given his distress we voiced concerns that without intubation/mech ventilation he may not survive. We discussed code status - she reported she had advanced directives from her son and that these indicated that he would want intubation/mech ventilation (along with CPR) "if there was a chance at survival." I went back to Mr Tate's room. On paper I wrote out "do you want to be placed on the ventilator?" and placed a large Yes and large No at the bottom. I verbally explained what a ventilator is and why we would be doing such. He pointed to the "yes" at the bottom. I asked one more time if he would want intubation and he shook his head yes this time. I informed Dr Peña, ED attending, of Mrs Tate's wishes as well as the patient's wishes. Preparations were made for intubation and Dr Peña successfully performed such. Dr Gray and Johnathon Benites were both informed of the above. Mr Benites was in the pt's room during the intubation. During chart review I noted that the patient had been receiving IM ceftaz at the SNF, presumably due to the pneumonia. Discharge Exam Constitutional General: Lethargic, obtunded, confused, non-verbal on discharge date 11/28/2024. Patient does not follow commands or animate objects (e.g., no conjugate tracking), and remains confused and non-verbal with mouth hanging wide open, not closing. Intubated 11/18/2024; extubated 11/20/2024. Still appears dyspnic on 11/27/2024 and on 11/28/2024. HEENT: Normocephalic, atraumatic. No nystagmus, gaze paresis, anisocoria, miosis, mydriasis, hyphema, scleral injection, conjunctivitis, or pterygium. No otorrhea or rhinorrhea. No pharyngeal erythema, edema, or discharge. Neck: Supple, no stridor, bruit, goiter, or hepato-jugular reflux. Jugular venous pressure is estimated to be 3 cm above the sternal angle of Angelo, which in turn, is 5 cm above the level of the right atrium; with jugular venous pressure estimated to be 8 cm, then, there is no jugular venous distention on 11/27/2024. Lymphatics: No cervical (anterior/posterior), supraclavicular, infraclavicular, axillary, epitrochlear, or inguinal adenopathy. Chest: Symmetric rise and fall with respirations. Non-tender to palpation. Lungs: Clear to auscultation and percussion. Heart: Regular rate and rhythm. S1 and S2 noted. No S3 or S4 summation gallop. No tripartite friction rub. Grade II/ early systolic murmur @ LLSB without radiation to the carotids, axilla, or back, and which remains invariant in regards to the respiratory cycle. Abdomen: Soft, generalized tenderness, non-distended. No rebound, guarding, Roberson's sign, or organomegaly. Bowel sounds auscultated in all 4 quadrants. Extremities: No clubbing, cyanosis, or edema. 2+ pedal pulses bilaterally. Skin: No decubitus ulcer, exanthem, or enanthem. Genito-urinary: No urethral discharge. + phelps catheter with 200 cc of sondra/langford sediment. Phelps will remain in situ as patient is discharged back to [facility] ([place]) under DNR/DNI/comfort measures only with morphine elixir 20mg/5mL, 20mg sublingual q4 prn shortness of breath, cough, wheeze, agitation, anxiety, panic, as requested by the patient's 90 years old mother and POA, Ms. Alia Tate ( )) on 11/28/2024. Neurology: No tremors, tics, or myoclonus. Psychiatry: Unknown. Discharge Plan Discharge Items Patient Disposition: Hospice - Medical Facility Reason For Visit: ACUTE HYPOXIC RESP FAILURE Discharge Diagnosis: DNR/DNI/comfort measures only/hospice @ [facility] ([place]). Condition on Discharge: Serious Activity: Resume your previous activity Lifting: None Bathing: No limitations Sexual Activity: When tolerated Exercise/Sports: None Weightbearing: Full weightbearing Non-emergency contact: Primary Care Provider Call non-emergency contact if: you have any medication questions Follow-up/Referrals: [facility] [Primary Care Provider] - Diet: Regular Addtl Attending Provider Instructions: None as patient is being discharged back to [facility] ([place]) on 11/28/2024 under DNR/DNI/comfort measures only/hospice, as requested by patient's mother, Ms. Alia Tate ( ). Pending Studies at Discharge: No Stand-Alone Forms: [facility] Skilled Items Patient informed of condition?: Yes DNR: Yes Discharge Level of Care: Skilled Communicable Disease: No Discharge Prognosis: Deteriorating Lines: None Urinary Catheter: Yes Medications and DC Order Prescriptions: New morphine 20 mg/5 mL (4 mg/mL) solution 20 mg PO Q4H PRN (Reason: pain) Qty: 100 0RF Discontinued oxcarbazepine 150 mg tablet 450 mg PO QPM acetaminophen 325 mg Tablet 650 mg PO Q12H PRN (Reason: Pain/fever) ipratropium-albuterol 0.5 mg-3 mg(2.5 mg base)/3 mL solution for nebulization 3 ml inhalation Q6H Rx Instructions: start 11/18-11/24 lidocaine 4 % Adhesive Patch,Medicated 1 patch TOPICAL DAILY risperidone 4 mg tablet 4 mg PO BID sucralfate 1 gram tablet 1 g PO TID ondansetron HCl 4 mg tablet 4 mg PO Q6H PRN (Reason: n/v) sertraline 100 mg tablet 100 mg PO HS simethicone 125 mg Capsule 125 mg PO DAILY melatonin 3 mg Tablet 3 mg PO HS acetaminophen 500 mg Tablet 500 mg PO Q8H potassium chloride 20 mEq tablet,ER particles/crystals 40 meq PO DAILY bisacodyl [Dulcolax (bisacodyl)] 10 mg Suppository 10 mg NC DAILY PRN (Reason: Constipation) ferrous sulfate [FeroSul] 325 mg (65 mg iron) tablet 325 mg PO BID benztropine 1 mg tablet 1 mg PO BID Enema 19-7 gram/118 mL Enema 118 ml NC DAILY PRN (Reason: Constipation) omeprazole 20 mg capsule,delayed release(DR/EC) 20 mg PO DAILY furosemide 20 mg Tablet 20 mg PO UD Rx Instructions: 20 mg po daily start 11/15 thru 11/20 ceftazidime 1 gram Recon Soln 1 g IM UD Rx Instructions: 1g daily start date 11/18 thru 11/21 guaifenesin [Mucus Relief] 400 mg Tablet 400 mg PO .Q12H Rx Instructions: start 11/18 end 11/25 paliperidone 6 mg tablet extended release 24 hr 12 mg PO DAILY thiamine mononitrate (vit B1) 100 mg tablet 100 mg PO DAILY Eliquis 5 mg tablet 5 mg PO BID Lactobacillus 1 cap PO BID Rx Instructions: 1 million units Milk of Magnesia 30 ml PO DAILY PRN (Reason: Constipation) Discharge Orders: Discharge Order (Routine); Ordered 11/28/24 Ordered By: Kevin Savage Admission Data Admit Date/Time: 11/18/24 19:09 Attending Provider: Kevin Savage Admit Provider: Devon Butcher Primary Care Provider: [facility] Other Providers: [facility],; Devon Butcher Hospital Stay Data Consultations 11/18/24 16:04 ED Decision to Admit Stat Diagnostic Imagining Performed 11/18/24 14:08 CT abd pelvis IV con only Stat CT chest diagnostic w con Stat CT head/brain wo con Stat Pending Results Patient Have Any Pending Studies at Discharge: No Discharge Instructions Given to Patient (Per Discharging Provider) None as patient is being discharged back to [facility] ([place]) on 11/28/2024 under DNR/DNI/comfort measures only/hospice, as requested by patient's mother, Ms. Alia Tate ( ). Total Time Total Time Spent Total Time Spent (In Minutes): 35 minutes. Of this time period, 19 minutes were spent in coordinating patient's discharge. Coding Level of Care Code 76802 INP/OBS DISCH >30 MIN Diagnoses Acute hypoxic respiratory failure J96.01 Sepsis A41.9; R65.20; J96.01 Acute respiratory failure type: with hypoxia Sepsis acute organ dysfunction status: with acute organ dysfunction Sepsis type: sepsis due to unspecified organism Severe sepsis acute organ dysfunction type: acute respiratory failure Severe sepsis shock status: unspecified Hypernatremia E87.0 History of traumatic brain injury Z87.820 HTN (hypertension) I10 Paroxysmal A-fib I48.0 Schizo affective schizophrenia F25.9
== END 2024-11-28 14:23 | disposition hospice, inpatient (51) | DRG 853 ==
LOC: ED 12:37 → 1E 19:09 → SUATTDRO 19:09 → 1E 19:41 → 2E 11-22 17:57